=== PATIENT | female | born 1995 | race African-American/Black ===

== ENCOUNTER 2019-09-15 10:11 | Outpatient (CLI) | payer OTHER, SELFPAY ==
[2019-09-19 12:02] LABS: Vitamin D 25 Hydroxy 21 ng/mL (30-100)
== END 2019-09-15 10:12 | disposition home or self-care (01) ==
PROVIDERS: PCP Internal Medicine; Visit Provider Internal Medicine
DX: E55.9 Vitamin D deficiency, unspecified (principal)
CPT/HCPCS: 36415; 82306

== ENCOUNTER 2019-10-12 14:11 | Outpatient (CLI) | payer OTHER, SELFPAY ==
--- NOTE | ~2019-10-12 | CT_ITS ---
EXAMINATION: CTA chest PE protocol DATE: 10/12/2019 16:24 INDICATION: Midsternal chest pain. Elevated d-dimer. TECHNIQUE: Computed tomography (CT) pulmonary angiogram of the chest was performed with 100 mL Omnipa que-350 intravenous contrast. Additional 3D reconstructions utilizing coronal maximum intensity proje ction (MIP) were performed. Automated exposure control and iterative reconstruction technique were em ployed. The dose-length product was 879.53 mGy-cm. COMPARISON: None FINDINGS: Excellent contrast opacification of the pulmonary arteries. There is mild streak artifact from dense contrast in the superior vena cava and right atrium. Mild scattered respiratory motion artifact in th e upper lung zones which does not significantly limit evaluation. No pulmonary embolism. There are fe w small calcified nodules in the right middle lobe along with calcified right hilar and mediastinal l ymph nodes consistent with old granulomatous disease. Or cluster of small <4 mm nodules in the perihi lar region of the right upper and middle lobes couple of which appear to represent mucus impacted bro nchi. No pneumonia, pulmonary edema, pleural effusion or pneumothorax. Heart size is normal. No peric ardial effusion. Thoracic aorta is normal in caliber with no dissection. Likely enlarged subcarinal l ymph node which is difficult to distinguish from the adjacent calcified lymph nodes, esophagus and az ygos vein. Visualized upper abdomen and bones are unremarkable. IMPRESSION: 1. No pulmonary embolism or other acute cardiopulmonary disease. 2. A few small perihilar nodules in the right middle and upper lobes measuring up to 4 mm, couple whi ch appear to represent small mucus impacted bronchi with differential including granulomatous disease . Compared to stage no further follow-up would be indicated. 3. Likely reactive subcarinal lymphadenopathy. Reviewed, dictated and finalized at location A. ATOR MECHANIC APPRENTICE IMPRESSION: 1. No pulmonary embolism or other acute cardiopulmonary disease. 2. A few small perihilar nodules in the right middle and upper lobes measuring up to 4 mm, couple which appear to represent small mucus impacted bronchi with differential including granulomatous disease. Compared to stage no further foll ow-up would be indicated. 3. Likely reactive subcarinal lymphadenopathy.
[2019-10-12 14:29] LABS: Basophils Absolute Auto 0.03 K/mm3 (0.00-0.10); Basophils Percent Auto 0.3 % (0.0-1.0); Eosinophils Absolute Auto 0.19 K/mm3 (0.02-0.50); Eosinophils Percent Auto 2.1 % (1.0-6.0); Hematocrit 41.8 % (35.0-49.0); Hemoglobin 13.6 g/dL (12.0-15.0); Immature Granulocyte Absolute 0.03 K/mm3 (0.00-0.00); Immature Granulocyte Percent A 0.3 % (0.0-0.0); Lymphocytes Absolute Auto 2.35 K/mm3 (1.10-4.50); Lymphocytes Percent Auto 26.1 % (18.0-42.0); Mean Corpuscular HGB Conc 32.5 g/dL (32.0-36.0); Mean Corpuscular Hemoglobin 26.9 pg (27.0-31.0); Mean Corpuscular Volume 82.6 fL (78.0-102.0); Mean Platelet Volume 9.5 fl (9.2-11.8); Monocytes Absolute Auto 0.46 K/mm3 (0.10-0.90); Monocytes Percent Auto 5.1 % (2.0-11.0); Neutrophils Percent Auto 66.1 % (50.0-70.0); Platelet Count Result 316 K/mm3 (150-420); Red Blood Count 5.06 M/mm3 (4.20-5.40); Red Cell Distribution Width 14.5 % (11.6-14.4)
[2019-10-12 14:32] LABS: Hemoglobin A1C 6.1 % (<5.7)
[2019-10-12 14:38] LABS: Pregnancy On Board Control POS; Urine Pregnancy Test Negative
[2019-10-12 14:47] LABS: Alanine Aminotransferase 24 U/L (14-59); Albumin Level 3.7 g/dL (3.4-5.0); Alkaline Phosphatase 71 U/L (46-116); Amylase 43 U/L (25-115); Anion Gap 12.3 mmol/L (7-16); Aspartate Amino Transferase 20 U/L (15-37); Bilirubin,Total 0.5 mg/dL (0.00-1.00); Blood Urea Nitrogen 13 mg/dL (7-18); Calcium 8.8 mg/dL (8.5-10.1); Carbon Dioxide 25 mmol/L (21-32); Chloride 105 mmol/L (98-108); Creatine Kinase 300 U/L (26-192); Estimated Glomerular Filt Rate > 60; Glucose 85 mg/dL (70-99); Lipase 58 U/L (73-393); Osmolality Calculated 285 mOsm/kg (285-295); Potassium 4.3 mmol/L (3.5-5.1); Sodium 138 mmol/L (136-145); Thyroid Stimulating Hormone 4.05 uIU/mL (0.36-3.74)
[2019-10-12 14:49] LABS: Troponin I < 0.02 ng/mL (0.00-0.056)
[2019-10-12 14:58] LABS: D Dimer 1.99 mg/L (0.19-0.50)
[2019-10-13 11:16] LABS: Free T4 Free Thyroxine 0.84 ng/dL (0.76-1.46)
== END 2019-10-12 14:12 | disposition home or self-care (01) ==
PROVIDERS: PCP Internal Medicine; Visit Provider Nurse Practitioner Family
DX: R79.1 Abnormal coagulation profile (principal); R94.31 Abnormal electrocardiogram [ECG] [EKG]; R10.9 Unspecified abdominal pain; R42 Dizziness and giddiness
CPT/HCPCS: 36415; 71275; 80053; 81025; 82150; 82550; 82553; 83036; 83690; 84439; 84443; 84484; 85025; 85380; Q9965

== ENCOUNTER 2019-10-13 07:43 | Outpatient (CLI) | payer OTHER, SELFPAY ==
--- NOTE | ~2019-10-13 | US_ITS ---
US right upper quadrant INDICATION: Right upper quadrant pain PROCEDURE: Realtime right upper abdominal ultrasound. COMPARISON: No prior studies for comparison. FINDINGS: The pancreas is normal without focal mass or pancreatic ductal dilation. Liver echotexture is normal without focal mass or intrahepatic biliary dilatation. There is normal directional flow i n the portal vein. There is gallbladder sludge. No definite stones, gallbladder wall thickening or pericholecystic fluid . Common bile duct measures 4 mm. No sonographic Patel's sign. IMPRESSION: 1: Gallbladder sludge. Reviewed, dictated and finalized at location B. ANICAL SERVICE TECHNICIAN IMPRESSION: 1: Gallbladder sludge.
== END 2019-10-13 07:44 | disposition home or self-care (01) ==
LOC: CHSIMG 07:45
PROVIDERS: PCP Internal Medicine; Visit Provider Nurse Practitioner Family
DX: R10.11 Right upper quadrant pain (principal)
CPT/HCPCS: 76705

== ENCOUNTER 2019-12-22 06:42 | Outpatient (CLI) | payer OTHER, SELFPAY ==
[2019-12-22 17:06] LABS: SARS-CoV-2 RNA PCR Negative
== END 2019-12-22 06:43 | disposition home or self-care (01) ==
LOC: ANHCOVIDDT 06:43
PROVIDERS: PCP Internal Medicine; Visit Provider Surgery
DX: Z01.818 Encounter for other preprocedural examination (principal); Z11.59 Encounter for screening for other viral diseases
CPT/HCPCS: 87635; U0003

== ENCOUNTER 2019-12-25 02:12 | Day surgery (SDC) | payer OTHER, SELFPAY ==
[2019-12-20 15:18] VITALS: BMI 35.6
--- NOTE | 2019-12-25 10:32 | WPDANESEPPF ---
Anes - Initial Pre Proc Eval Procedure: Operation Date: 12/25/19 12:00 Proposed Procedures p Esophagogastroduodenoscopy - Ki Antoine DO Date/Time: 12/25/19 10:32 Surgeon: Ki Antoine DO Pre Op Diagnosis: Epigastric Pain and Dysphagia Patient Data Age: 24 Gender: F Height: 5 ft 6 in Weight: 100 kg Allergies Allergy/AdvReac Type Severity Reaction Status Date / Time No Known Allergies Allergy Verified 12/20/19 15:12 Home Medications Medication Instructions Recorded Confirmed Type escitalopram oxalate [Lexapro] 5 mg PO DAILY 06/20/19 12/20/19 History omeprazole 40 mg PO DAILY 06/20/19 12/20/19 History albuterol sulfate 90 mcg/actuation 2 inhalation INHALATION Q6H 10/25/19 12/20/19 History breath activated powder inhaler,sensor diclofenac potassium 50 mg tablet 50 mg PO DAILY tablet 10/25/19 12/20/19 History montelukast 10 mg tablet 10 mg PO DAILY 10/26/19 12/20/19 History Patient hx anesthesia problems: none Family hx anesthesia problems: none [facility] Past Medical History Medical History Asthma Depression Peptic ulcer disease Social History Social History Smoking status: Never smoker Alcohol intake: never Substance use: never Gender identity (if verbalized by the patient): Female Anes - Eval Final PreProcedure Day of Procedure 12/25/19 10:32 Patient weight: obese Heart: regular rate and rhythm Lungs: clear to auscultation Airway: Mallampati scale class II Neurological: alert and oriented Last oral intake: >/= 8 hours ASA classification: III Emergent: no Anesthetic plan: proceed Anesthesia type and monitoring: general GIVS and standard monitoring Informed Consent: The patient's anesthetic plan and its attendant risks and benefits were discussed with the patient/family/POA. Questions were solicited and answers provided to the satisfaction of the patient/family/POA.
[2019-12-25 10:33] VITALS: BP 113/82; PULSE 51; RESP 16; TEMP 36.6; O2SAT 100
[2019-12-25] MEDS: LACTATED RINGERS 1,000 ML 150 ML IV CONT (10:51)
--- NOTE | 2019-12-25 11:49 | WPDHPUPDATE1 ---
History and Physical Update Update Date/Time: 12/25/19 11:49 History and Physical has been reviewed, including an updated exam of the patient. There are NO changes in the patient's condition. Risks, benefits, and alternatives have been discussed and questions answered. Patient agrees to proceed with procedure.
[2019-12-25 12:05] VITALS: BP 97/56; PULSE 67; RESP 15; O2SAT 97
[2019-12-25 12:15] VITALS: BP 97/52; PULSE 55; RESP 20; O2SAT 100
[2019-12-25 12:25] VITALS: BP 96/62; PULSE 54; RESP 20; O2SAT 97
== END 2019-12-25 12:43 | disposition home or self-care (01) ==
PROVIDERS: PCP Internal Medicine; Visit Provider Surgery
PROC: 0DJ08ZZ Inspection of Upper Intestinal Tract, Via Natural or Artificial Opening Endoscopic (ICD-10-PCS; CPT 43235; principal; 2019-12-25 12:00)
DX: K21.0 Gastro-esophageal reflux disease with esophagitis (principal); K44.9 Diaphragmatic hernia without obstruction or gangrene; J45.909 Unspecified asthma, uncomplicated; F32.9 Major depressive disorder, single episode, unspecified
CPT/HCPCS: 43239; 87081; 88305; J2001; J7120

== ENCOUNTER 2020-02-18 15:02 | Emergency (ER) | payer BC, MEDICAID, SELFPAY ==
--- NOTE | ~2020-02-18 | CT_ITS ---
EXAMINATION: CT abdomen pelvis w con DATE: 02/18/2020 17:34 INDICATION: Epigastric pain. TECHNIQUE: Computed tomography (CT) of the abdomen and pelvis was performed with 100 cc Omnipaque 350 intravenous contrast. The dose-length product was 1128.27 mGy-cm. Automated exposure control and ite rative reconstruction technique were employed. COMPARISON: CT dated 01/16/2014 FINDINGS: Lung bases unremarkable. Heart size normal. No pleural or pericardial effusion. No significant vascular abnormality. No lymphadenopathy. The liver, spleen, pancreas, adrenal glands and kidneys are unremarkable. No bowel obstruction. Normal appendix. Trace free fluid in the pelvis, likely physiologic. No free air. IMPRESSION: 1. No acute abdominal abnormality. Reviewed, dictated and finalized at location A.
[2020-02-18 15:25] VITALS: BP 129/73; PULSE 75; RESP 20; TEMP 36.9; O2SAT 96
--- NOTE | 2020-02-18 15:40 | ED.ABDPAIN ---
HPI - Abdominal Pain General Chief Complaint: Abdominal Pain Stated Complaint: vomiting, abd pain Time Seen by Provider: 02/18/20 15:40 Source: patient Mode of arrival: ambulatory Limitations: no limitations History of Present Illness HPI narrative: 24-year-old woman comes in today complaining of epigastric pain that radiates up into her chest that started approximately 2 hours ago. Patient states that she ate lunch as per usual and has been feeling well to the onset of her symptoms. She feels nauseated and vomited her lunch and then was having dry heaves afterwards productive of a small amount of blood. She denies diarrhea, sick contacts, fever, cough or cold symptoms, or prior similar symptoms except to say that she has a hiatal hernia which gave her similar but much milder symptoms before. She has had an EGD December [facility] which showed esophagitis and the lower 3rd without bleeding and small hiatal hernia without obstruction or gangrene. MD elicited complaint: abdominal pain Pertinent past history: other ( reflux esophagitis and hiatal hernia) Onset (ago): hour(s) (2) Pain Consistency: constant Location: epigastric Severity: severe Quality: burning Radiation: chest Migration to: no migration Exacerbating factors: nothing Relieving factors: nothing Context: confirms history of similar episodes Associated symptoms: nausea and vomiting Related Data Patient : No Home Medications Medication Instructions Recorded Confirmed omeprazole 40 mg PO DAILY 06/20/19 02/18/20 albuterol sulfate 90 mcg/actuation 2 inhalation INHALATION Q6H 10/25/19 02/18/20 breath activated powder inhaler,sensor montelukast 10 mg tablet 10 mg PO DAILY 10/26/19 02/18/20 Allergies Allergy/AdvReac Type Severity Reaction Status Date / Time No Known Allergies Allergy Verified 12/20/19 15:12 Review of Systems Constitutional: Constitutional: Denies chills, Denies fever(s) and Denies weakness ENT: Denies dysphagia, Denies nasal congestion and Denies sore throat Cardiovascular: Cardiovascular: Reports chest pain and Denies radiating jaw, neck or arm pain Respiratory: Respiratory: Denies cough, Denies dyspnea and Denies wheezing Gastrointestinal: Gastrointestinal: Reports abdominal pain, Denies diarrhea, Reports nausea and Reports vomiting Genitourinary: Genitourinary: Denies nocturia and Denies dysuria Musculoskeletal: Musculoskeletal: Denies back pain, Denies arthralgias and Denies joint swelling Integumentary/Breasts: Skin/Breast: Denies pruritus, Denies erythema and Denies rash Neurologic: Denies vertigo, Denies dizziness and Denies syncope Hematologic/Lymphatic: Hematologic/Lymphatic: Denies easy bleeding and Denies easy bruising Allergic/Immunologic: Allergic/Immunologic: Denies lip swelling and Denies wheezing [facility] Past Medical History Medical History Asthma Depression GERD (gastroesophageal reflux disease) Hiatal hernia Peptic ulcer disease Surgical History Surgical History H/O esophagogastroduodenoscopy 12/2019 Social History Social History (Updated 02/18/20 @ 16:39 by Austen Franks MD) Smoking status: Never smoker Alcohol intake: current Alcohol use details: occasional Substance use: current Substance use type: marijuana Other substance usage details: occasional Living arrangements: with family Gender identity (if verbalized by the patient): Female Exam Const: General: healthy appearing and alert Nutritional Appearance: obese Orientation/consciousness: patient oriented x3 Limitations: no limitations Other: moderate acute distress, tearful HENMT: Head: normal to inspection Ears: external ears normal, TM's normal bilaterally and EAC's normal Face and sinus: normal facial exam Mouth: Yes moist mucous membranes Throat: posterior oropharynx normal Eyes:
[2020-02-18 15:44] LABS: Appearance Urine Clear (Clear); Bilirubin Urine Negative (Negative); Color Urine Yellow (Yellow); Glucose Urine UA Negative (Negative); Ketones Urine Negative (Negative); Leukocyte Esterase Ur Negative LEU/UL (Negative); Nitrate Urine Negative (Negative); Protein Urine Negative (Negative)
[2020-02-18 15:47] LABS: Add Urine Microscopic? YES; Bacteria Urine 1+ /hpf; Blood Urine Trace-Intact (Negative); Squamous Epithelial Cell Urine Moderate /hpf (Few); WBC Urine None seen /hpf (0-3)
[2020-02-18 15:48] LABS: Pregnancy On Board Control Positive; Urine Pregnancy Test Negative
[2020-02-18] MEDS: SODIUM CHLORIDE 0.9% IV 1,000 ML 999 ML IV CONT (16:04)
[2020-02-18] MEDS: LIDOCAINE HCL 2% VISC SOLN 15 ML UDC 20 ML PO (16:05)
[2020-02-18] MEDS: MAG HYDROX/AL HYDROX/SIMETH 30 ML UDC PO (16:06)
[2020-02-18] MEDS: ONDANSETRON INJ 4 MG/2 ML VIAL IV PUSH (16:06)
[2020-02-18] MEDS: PANTOPRAZOLE SODIUM IV 40 MG VIAL IV PUSH (16:07)
[2020-02-18] MEDS: MORPHINE SULFATE 4 MG/ML INJ 2 MG IV PUSH (16:07)
[2020-02-18 16:13] LABS: Basophils Absolute Auto 0.03 K/mm3 (0.00-0.10); Basophils Percent Auto 0.4 % (0.0-1.0); Eosinophils Absolute Auto 0.07 K/mm3 (0.02-0.50); Eosinophils Percent Auto 0.8 % (1.0-6.0); Hematocrit 39.1 % (35.0-49.0); Hemoglobin 13.1 g/dL (12.0-15.0); Immature Granulocyte Absolute 0.05 K/mm3 (0.00-0.00); Immature Granulocyte Percent A 0.6 % (0.0-0.0); Lymphocytes Absolute Auto 1.78 K/mm3 (1.10-4.50); Mean Corpuscular HGB Conc 33.5 g/dL (32.0-36.0); Mean Corpuscular Hemoglobin 27.4 pg (27.0-31.0); Mean Corpuscular Volume 81.8 fL (78.0-102.0); Mean Platelet Volume 9.3 fl (9.2-11.8); Monocytes Absolute Auto 0.36 K/mm3 (0.10-0.90); Monocytes Percent Auto 4.2 % (2.0-11.0); Neutrophils Absolute Auto 6.2 K/mm3 (1.7-7.2); Platelet Count Result 274 K/mm3 (150-420); Red Blood Count 4.78 M/mm3 (4.20-5.40); White Blood Count 8.5 K/mm3 (4.8-10.8)
[2020-02-18 16:24] LABS: Partial Thromboplastin Time 29.2 SEC (22.3-31.6); Prothrombin Time 10.5 Seconds (9.64-11.0)
[2020-02-18 16:27] LABS: Alanine Aminotransferase 20 U/L (14-59); Albumin Level 3.5 g/dL (3.4-5.0); Alkaline Phosphatase 64 U/L (46-116); Anion Gap 11.5 mmol/L (7-16); Aspartate Amino Transferase 17 U/L (15-37); Bilirubin,Total 0.5 mg/dL (0.00-1.00); Blood Urea Nitrogen 12 mg/dL (7-18); Calcium 8.7 mg/dL (8.5-10.1); Carbon Dioxide 25 mmol/L (21-32); Chloride 102 mmol/L (98-108); Estimated Glomerular Filt Rate > 60; Glucose 101 mg/dL (70-99); Lipase 39 U/L (73-393); Osmolality Calculated 279 mOsm/kg (285-295); Potassium 3.5 mmol/L (3.5-5.1); Sodium 135 mmol/L (136-145); Total Protein 7.3 g/dL (6.4-8.2)
[2020-02-18 16:29] LABS: Lactic Acid Reflex 0.6 mmol/L (0.4-2.0)
[2020-02-18 17:00] VITALS: BP 111/79; PULSE 57; O2SAT 98
[2020-02-18 18:29] VITALS: BP 103/58; PULSE 53
== END 2020-02-18 18:34 | disposition home or self-care (01) ==
PROVIDERS: Emergency Provider Emergency Medicine; PCP Internal Medicine
DX: R10.13 Epigastric pain (principal); K44.9 Diaphragmatic hernia without obstruction or gangrene; K21.9 Gastro-esophageal reflux disease without esophagitis
CPT/HCPCS: 36415; 74177; 80053; 81001; 81025; 83605; 83690; 85025; 85610; 85730; 96361; 96374; 96375; 99284; A9270; C9113; J2270; J2405; J7030; Q9965

== ENCOUNTER 2020-02-20 08:31 | Outpatient (CLI) | payer BC, MEDICAID, SELFPAY ==
--- NOTE | ~2020-02-20 | US_ITS ---
US right upper quadrant INDICATION: Epigastric pain PROCEDURE: Realtime right upper abdominal ultrasound. COMPARISON: 10/13/2019 FINDINGS: The pancreas is normal without focal mass or pancreatic ductal dilation. Liver echotexture is normal without focal mass or intrahepatic biliary dilatation. There is normal directional flow i n the portal vein. There is gallbladder sludge. No stones, gallbladder wall thickening or pericholecystic fluid. Common bile duct measures 3 mm. No sonographic Patel's sign. IMPRESSION: 1: Gallbladder sludge. Reviewed, dictated and finalized at location B. IMPRESSION: 1: Gallbladder sludge.
== END 2020-02-20 08:32 | disposition home or self-care (01) ==
LOC: CHSIMG 08:32
PROVIDERS: PCP Internal Medicine; Visit Provider Emergency Medicine
DX: R10.13 Epigastric pain (principal)
CPT/HCPCS: 76705

== ENCOUNTER 2020-03-05 08:44 | Outpatient (CLI) | payer BC, MEDICAID, SELFPAY ==
--- NOTE | ~2020-03-05 | NM_ITS ---
. EXAMINATION: NM hepatobiliary w pharm DATE: 03/05/2020 11:27 INDICATION: Right upper quadrant abdominal pain. COMPARISON: Ultrasound 02/20/2020 TECHNIQUE: 6.0 mCi Tc-99m mebrofenin (Choletec) was administered intravenously. Scintigraphic images of the abdomen were obtained for one hour. Then, 2.2 mcg sincalide (Kinevac) IV was administered, an d imaging was continued for 30 minutes. FINDINGS: There is normal clearance of radiotracer from the blood pool. There is homogeneous tracer u ptake by the liver. Activity progresses to the bowel and gallbladder. Gallbladder ejection fraction (GBEF) was 65%. Note that most patients with gallbladder dysfunction have GBEF < 35%, which overlaps with the broad normal range of 10-90%. IMPRESSION: 1. Normal hepatobiliary scintigraphy. Reviewed, dictated and finalized at location A.
== END 2020-03-05 08:45 | disposition home or self-care (01) ==
LOC: CHSIMG 08:46
PROVIDERS: PCP Internal Medicine; Visit Provider Internal Medicine
DX: R10.11 Right upper quadrant pain (principal); R93.5 Abnormal findings on diagnostic imaging of other abdominal regions, including retroperitoneum
CPT/HCPCS: 78227; A9537; J2805

== ENCOUNTER 2020-03-08 03:29 | Emergency (ER) | payer BC, MEDICAID, SELFPAY ==
--- NOTE | ~2020-03-08 | US_ITS ---
EXAMINATION: US OB <=14 wk fetus w TV DATE: 03/08/2020 08:51 INDICATION: Abdominal pain. First trimester of . TECHNIQUE: Real-time transabdominal and transvaginal pelvic ultrasound was performed. COMPARISON: None. FINDINGS: TRANSABDOMINAL ULTRASOUND: The uterus measures 7.1 x 4.6 x 4.8 cm. TRANSVAGINAL ULTRASOUND: There is an intrauterine gestational sac. A yolk sac is identified. The fet al crown rump length measures 0.5 cm, which correlates with an estimated gestational age of 6 weeks a nd 2 day(s) (+/-) 4 day(s). heart motion is identified measuring 115 beats per minute (bpm) by M-mode Doppler. The right ovary measures 3.0 x 1.9 x 2.2 cm. The left ovary measures 3.2 x 1.5 x 2.4 cm. There is no free fluid in the pelvis. IMPRESSION: 1. Single living intrauterine gestation with estimated date of delivery of 10/30/2020. Reviewed, dictated and finalized at location A. IMPRESSION: 1. Single living intrauterine gestation with estimated date of delivery of 10/08.
[2020-03-08 03:40] VITALS: BP 125/69; PULSE 68; RESP 20; TEMP 37.4; O2SAT 100
--- NOTE | 2020-03-08 03:46 | ED.ABDPAIN ---
HPI - Abdominal Pain General Chief Complaint: Abdominal Pain Stated Complaint: adominal pain Time Seen by Provider: 03/08/20 03:46 Source: patient Mode of arrival: ambulatory Limitations: no limitations History of Present Illness HPI narrative: 24-year-old woman comes in today complaining of epigastric pain and vomiting for the last week. patient states that she has had a small amount of blood in her vomitus but is mostly yellow and green. She denies diarrhea, fever, dysuria, hematuria, blood in her stools or black stools. Upper quadrant ultrasound on 02/19 and HIDA scan on 03/05 were both unremarkable And a CT scan on 02/17 was unremarkable as well. MD elicited complaint: abdominal pain Onset (ago): week(s) (1) Pain Consistency: constant Location: epigastric Severity: severe Quality: sharp Radiation: none Migration to: no migration Exacerbating factors: eating Relieving factors: nothing Associated symptoms: nausea and vomiting Treatments prior to arrival: antacids Related Data Home Medications Medication Instructions Recorded Confirmed omeprazole 40 mg PO DAILY 06/20/19 03/08/20 albuterol sulfate 90 mcg/actuation 2 inhalation INHALATION Q6H 10/25/19 03/08/20 breath activated powder inhaler,sensor escitalopram oxalate [Lexapro] 10 mg PO DAILY 03/08/20 03/08/20 Allergies Allergy/AdvReac Type Severity Reaction Status Date / Time No Known Allergies Allergy Verified 12/20/19 15:12 Review of Systems Constitutional: Constitutional: Denies chills, Denies fever(s) and Denies weakness Eyes: Eyes: Denies change in vision and Denies photophobia ENT: Denies dysphagia, Denies nasal congestion and Denies sore throat Cardiovascular: Cardiovascular: Denies chest pain and Denies radiating jaw, neck or arm pain Respiratory: Respiratory: Denies cough, Denies dyspnea and Denies wheezing Gastrointestinal: Gastrointestinal: Reports as per HPI, Reports abdominal pain, Denies constipation, Denies diarrhea, Reports nausea and Reports vomiting Genitourinary: Genitourinary: Denies hematuria, Denies nocturia and Denies dysuria Musculoskeletal: Musculoskeletal: Denies back pain, Denies arthralgias and Denies joint swelling Integumentary/Breasts: Skin/Breast: Denies pruritus, Denies erythema and Denies rash Neurologic: Denies vertigo, Denies dizziness and Denies syncope Hematologic/Lymphatic: Hematologic/Lymphatic: Denies easy bleeding and Denies easy bruising Allergic/Immunologic: Allergic/Immunologic: Denies lip swelling and Denies wheezing [facility] Social History Social History Smoking status: Never smoker Alcohol intake: current Substance use: current Substance use type: marijuana Other substance usage details: occasional Gender identity (if verbalized by the patient): Female Exam Const: General: alert Nutritional Appearance: obese Orientation/consciousness: patient oriented x3 Limitations: no limitations Other: Moderate acute distress, tearful. HENMT: Mouth: Yes moist mucous membranes Throat: posterior oropharynx normal and uvula midline Eyes: Conjunctivae: conjunctivae normal Pupils: Equal, round and reactive pupils present EOM: EOMs intact bilaterally Resp: Effort & Inspection: normal respiratory effort and not labored Auscultation: clear to auscultation bilaterally, no rales, no rhonchi and no wheezes Cardio: Rate: regular rate Rhythm: regular rhythm Heart sounds: no murmurs GI: Inspection: non-distended GI Palp: Yes Soft to palpation, Yes Tenderness to palpation present (GI) (diffusely, but mostly in the epigastrum), No Guarding due to palpation present (GI), No Rigid due to palpation, No Palpable mass present and No Rebound tenderness present : General: Yes no CVA tenderness Skin: General skin exam: normal color, no jaundice and no pallor Rashes: no rashes Neuro: General: patient oriented x3, moves all extremities, no focal
[2020-03-08 04:24] LABS: Basophils Absolute Auto 0.03 K/mm3 (0.00-0.10); Basophils Percent Auto 0.4 % (0.0-1.0); Eosinophils Absolute Auto 0.06 K/mm3 (0.02-0.50); Eosinophils Percent Auto 0.8 % (1.0-6.0); Hematocrit 39.6 % (35.0-49.0); Hemoglobin 13.4 g/dL (12.0-15.0); Immature Granulocyte Absolute 0.03 K/mm3 (0.00-0.00); Immature Granulocyte Percent A 0.4 % (0.0-0.0); Lymphocytes Absolute Auto 1.94 K/mm3 (1.10-4.50); Lymphocytes Percent Auto 27.1 % (18.0-42.0); Mean Corpuscular HGB Conc 33.8 g/dL (32.0-36.0); Mean Corpuscular Hemoglobin 28.1 pg (27.0-31.0); Mean Platelet Volume 9.2 fl (9.2-11.8); Monocytes Absolute Auto 0.39 K/mm3 (0.10-0.90); Monocytes Percent Auto 5.4 % (2.0-11.0); Neutrophils Absolute Auto 4.7 K/mm3 (1.7-7.2); Neutrophils Percent Auto 65.9 % (50.0-70.0); Platelet Count Result 256 K/mm3 (150-420); Red Blood Count 4.77 M/mm3 (4.20-5.40); Red Cell Distribution Width 13.6 % (11.6-14.4); White Blood Count 7.2 K/mm3 (4.8-10.8)
[2020-03-08 04:47] LABS: Appearance Urine Clear (Clear); Bilirubin Urine Negative (Negative); Color Urine Yellow (Yellow); Glucose Urine UA Negative (Negative); Ketones Urine 2+ (Negative); Leukocyte Esterase Ur Negative LEU/UL (Negative); Nitrate Urine Negative (Negative); Protein Urine Negative (Negative); Urobilinogen Urine >=8.0 mg/dL (0.2-1.0)
[2020-03-08 04:50] LABS: Alanine Aminotransferase 23 U/L (14-59); Albumin Level 3.8 g/dL (3.4-5.0); Alkaline Phosphatase 54 U/L (46-116); Anion Gap 12.1 mmol/L (7-16); Aspartate Amino Transferase 25 U/L (15-37); Bilirubin,Total 1.3 mg/dL (0.00-1.00); Blood Urea Nitrogen 7 mg/dL (7-18); Calcium 8.7 mg/dL (8.5-10.1); Carbon Dioxide 25 mmol/L (21-32); Chloride 96 mmol/L (98-108); Estimated CRCL calculation 123 ml/min; Estimated Glomerular Filt Rate > 60; Glucose 81 mg/dL (70-99); Osmolality Calculated 267 mOsm/kg (285-295); Potassium 3.1 mmol/L (3.5-5.1); Sodium 130 mmol/L (136-145); Total Protein 7.7 g/dL (6.4-8.2)
[2020-03-08 04:52] LABS: Pregnancy On Board Control Positive; Urine Pregnancy Test Positive
[2020-03-08] MEDS: SODIUM CHLORIDE 0.9% IV 1,000 ML 999 ML IV CONT (04:52)
[2020-03-08] MEDS: ONDANSETRON INJ 4 MG/2 ML VIAL IV PUSH (04:53)
[2020-03-08] MEDS: HYDROmorphone HCL 2 MG/ML VIAL 0.5 MG IV PUSH (04:53)
[2020-03-08 04:55] LABS: Lactic Acid Reflex 0.9 mmol/L (0.4-2.0)
[2020-03-08 04:59] LABS: Add Urine Microscopic? YES; Blood Urine Trace-Intact (Negative); Squamous Epithelial Cell Urine Few /hpf (Few); WBC Urine 0-3 /hpf (0-3)
[2020-03-08 05:00] LABS: Bacteria Urine 1+ /hpf; Mucus Urine Few /lpf
[2020-03-08 05:01] LABS: Amphetamine Screen Urine Negative (Negative); Barbiturate Screen Urine Negative (Negative); Benzodiazepines Screen Urine Negative (Negative); Cannabinoid Screen Urine Positive (Negative); Cocaine Screen Urine Negative (Negative); Methadone Screen Urine Negative (Negative); Opiate Screen Urine Positive (Negative); Phencyclidine Screen Urine Negative (Negative)
[2020-03-08 05:20] VITALS: BP 126/78; PULSE 85; RESP 18; O2SAT 100
[2020-03-08] MEDS: KCL 20 MEQ/D5/0.9% SOD CHL 1,000 ML 999 ML IV CONT (08:28)
--- NOTE | 2020-03-08 08:34 | PC.NURSE ---
Discussed HIV testing c pt. since + preg test, pt. does consent to testing while here and instructions given c d/c instructions for home explained. Signed consent for testing.
[2020-03-08 09:08] LABS: HIV 1 P24 AG Negative (Negative); HIV 1/2 AB Negative (Negative)
[2020-03-08 09:23] VITALS: BP 126/76; PULSE 75; RESP 20; TEMP 36.4; O2SAT 99
--- NOTE | 2020-03-08 09:23 | ED.ABDPAIN ---
HPI - Abdominal Pain General Chief Complaint: Abdominal Pain Stated Complaint: adominal pain Time Seen by Provider: 03/08/20 03:46 Source: patient Mode of arrival: ambulatory Limitations: no limitations History of Present Illness MD elicited complaint: abdominal pain Onset (ago): week(s) (1) Pain Consistency: constant Location: epigastric Severity: severe Quality: sharp Radiation: none Migration to: no migration Exacerbating factors: eating Relieving factors: nothing Associated symptoms: nausea and vomiting Treatments prior to arrival: antacids Related Data Home Medications Medication Instructions Recorded Confirmed omeprazole 40 mg PO DAILY 06/20/19 03/08/20 albuterol sulfate 90 mcg/actuation 2 inhalation INHALATION Q6H 10/25/19 03/08/20 breath activated powder inhaler,sensor escitalopram oxalate [Lexapro] 10 mg PO DAILY 03/08/20 03/08/20 Allergies Allergy/AdvReac Type Severity Reaction Status Date / Time No Known Allergies Allergy Verified 12/20/19 15:12 [facility] Social History Social History Smoking status: Never smoker Alcohol intake: current Substance use: current Substance use type: marijuana Other substance usage details: occasional Gender identity (if verbalized by the patient): Female Course Course Emergency Course: Dr. Franks signed out to me at 07:00 Ultrasound showed 6 weeks intrauterine . Pt. developed morning sickness earlier in the week followed with suprapubic pain early this AM likely secondary to abdominal muscle spasms. This does not appear to be related to her recent dx. of esophagitis. Pt had no further vomiting after Zofran and IVF. Received NS with KCL. No further suprapubic pain. Minor tenderness without guarding on physical exam. Pt. d.c. Rx. for KCL and doxylamine-pyridoxine and given f/u instructions to see Dr. Fragoso to monitor electrolytes and OB for care. Pain should resolve if vomiting is controlled. Pt. encouraged to read info on morning sickness. Vital Signs Vital signs: Vital Signs Temperature 37.4 C 03/08/20 03:40 Pulse Rate 68 03/08/20 03:40 Respiratory Rate 20 03/08/20 03:40 Blood Pressure 125/69 03/08/20 03:40 Pulse Oximetry 100 03/08/20 03:40 Temperature 36.4 C L 03/08/20 09:23 Pulse Rate 75 03/08/20 09:23 Respiratory Rate 20 03/08/20 09:23 Blood Pressure 126/76 03/08/20 09:23 Pulse Oximetry 99 03/08/20 09:23 MDM - Abdominal Pain Medical Records Attestation: I reviewed the patient's medical records. Medical records narrative: epigastric pain, early satiety, food getting stuck in esophagus, onset In Aug/Sep. EGD revealed lower 1/3 esophagitis. Tx. with PPI. Lab Data Attestation: I reviewed the patient's lab results. Result diagrams: 03/08/20 04:20 03/08/20 04:20 Labs: Lab Results 03/08/20 03/08/20 03/08/20 Range/Units 04:20 04:20 04:20 WBC 7.2 (4.8-10.8) K/mm3 RBC 4.77 (4.20-5.40) M/mm3 Hgb 13.4 (12.0-15.0) g/dL Hct 39.6 (35.0-49.0) % MCV 83.0 (78.0-102.0) fL MCH 28.1 (27.0-31.0) pg MCHC 33.8 (32.0-36.0) g/dL RDW 13.6 (11.6-14.4) % Plt Count 256 (150-420) K/mm3 MPV 9.2 (9.2-11.8) fl Immature Gran % (Auto) 0.4 H (0.0-0.0) % Neut % (Auto) 65.9 (50.0-70.0) % Lymph % (Auto) 27.1 (18.0-42.0) % [place] % (Auto) 5.4 (2.0-11.0) % Eos % (Auto) 0.8 L (1.0-6.0) % Baso % (Auto) 0.4 (0.0-1.0) % Lymph # (Auto) 1.94 (1.10-4.50) K/mm3 [place] # (Auto) 0.39 (0.10-0.90) K/mm3 Eos # (Auto) 0.06 (0.02-0.50) K/mm3 Baso # (Auto) 0.03 (0.00-0.10) K/mm3 Abs Immat Gran (auto) 0.03 H (0.00-0.00) K/mm3 Absolute Neuts (auto) 4.7 (1.7-7.2) K/mm3 Absolute Nucleated RBC 0.00 (0.00-0.00) K/mm3 Nucleated RBC % 0.0 (0-0.0) % Sodium 130 L (136-145) mmol/L Potassium 3.1 L (3.5-5.1) mmol/L Chloride 96 L (98-10
== END 2020-03-08 09:32 | disposition home or self-care (01) ==
PROVIDERS: Emergency Medicine; Emergency Provider Family Medicine; PCP Internal Medicine
DX: R10.9 Unspecified abdominal pain (principal); Z33.1 Pregnant state, incidental
CPT/HCPCS: 36415; 76801; 76817; 80053; 80307; 81001; 81025; 83605; 83735; 84702; 85025; 86703; 96361; 96365; 96375; 99284; J1170; J2405; J3480; J7030

== ENCOUNTER 2020-07-24 09:58 | Outpatient (CLI) | payer MEDICAID, SELFPAY ==
[2020-07-30 13:03] LABS: Vitamin D 25 Hydroxy 22 ng/mL (30-100)
== END 2020-07-24 09:59 | disposition home or self-care (01) ==
PROVIDERS: PCP Internal Medicine; Visit Provider Internal Medicine
DX: E55.9 Vitamin D deficiency, unspecified (principal)
CPT/HCPCS: 36415; 82306

== ENCOUNTER 2020-10-11 10:37 | Outpatient (RCR) | payer OTHER, SELFPAY ==
[2020-10-10 08:31] VITALS: BP 111/63; PULSE 80
--- NOTE | ~2020-10-11 | US_ITS ---
EXAMINATION: US OB BPP wo non-stress DATE: 10/11/2020 12:45 INDICATION: Decreased movements during third trimester of TECHNIQUE: Real-time pelvic ultrasound was performed. The interpreting radiologist was not present fo r the study. COMPARISON: 03/08/2020 FINDINGS: There is a single living fetus in vertex presentation. The placenta is posterior. heart rate i s 142 beats per minute (bpm). Amniotic fluid volume is subjectively normal. Biophysical profile performed by the technologist: breathing (30 sec sustained breathing in 30 minutes): 2 out of 2 movement (3 gross body movements in 30 minutes): 2 out of 2 tone (one episode of [id number]-[id number] limb movement): 2 out of 2 Amniotic fluid pocket (2 cm): 2 out of 2 Total score: 8 out of 8 IMPRESSION: 1. Single living fetus in vertex presentation with heart rate of 142 bpm. 2. Biophysical profile 8 out of 8. Reviewed, dictated and finalized at location B. K CLEANER
[2020-10-11 13:34] VITALS: BP 116/77; PULSE 100
--- NOTE | 2020-10-14 08:25 | PM.OBTRLD ---
OB - Triage/Final Diagnosis Visit Information Date of evaluation: 10/11/20 Reason for evaluation: decreased movement and other (abdominal pain after fall) Comments/Additional reasons for admission: Pt presented to triage after fall. She reported some abdominal pain and decreased movement. I have assessed the risk for this patient, Terra Pineda, and determined that she would benefit from observation care.
== END 2020-10-28 08:47 | disposition home or self-care (01) ==
LOC: ANHOBOP 10:37
PROVIDERS: PCP Internal Medicine; Visit Provider Obstetrics & Gynecology
DX: O99.891 Other specified diseases and conditions complicating pregnancy (principal); W19.XXXA Unspecified fall, initial encounter; O36.8130 Decreased fetal movements, third trimester, not applicable or unspecified; Z3A.37 37 weeks gestation of pregnancy
CPT/HCPCS: 59025; 76819

== ENCOUNTER 2020-10-25 15:26 | Inpatient (IN) | payer OTHER, SELFPAY ==
[2020-10-25] VITALS (99 sets, daily range): BP systolic 94–129; BP diastolic 40–78; PULSE 77–118; RESP 16–18; TEMP 36.6–37.1; O2SAT 95–100; BMI 39.4
--- NOTE | 2020-10-25 15:26 | LDADM ---
This patient, Terra Pineda, was admitted to Labor/Delivery/Recovery 105 on 10/25/20 at 15:26. Plans for labor, pain management and were discussed with patient. Patient/family oriented to hospital policies and general routines including ID bracelet, bed and alarms, visiting hours, pain management, procedures, bathroom and other care routines, personal items, smoking policy, room service/diet and guest tray routines, infant security routines, and visiting hours. Patient/Family are encouraged to report perceived risks to care and to ask questions if they do not understand what they are told or what they should do. See [facility] for further documentation.
[2020-10-25 16:28] LABS: Basophils Percent Auto 0.3 % (0.2-1.2); Eosinophils Absolute Auto 0.1 K/mm3 (0-0.3); Eosinophils Percent Auto 0.7 % (0-4.4); Hematocrit 36.5 % (37.0-47.0); Hemoglobin 11.5 g/dL (12.0-15.0); Immature Granulocyte Absolute 0.17 K/mm3 (0.00-0.031); Immature Granulocyte Percent A 1.3 % (0-0.5); Lymphocytes Absolute Auto 1.76 K/mm3 (0.9-3.2); Lymphocytes Percent Auto 13.3 % (18.3-44.2); Mean Corpuscular HGB Conc 31.5 g/dl (32-36); Mean Corpuscular Hemoglobin 24.9 pg (26-34); Mean Platelet Volume 10.2 fl (7.4-10.4); Monocytes Absolute Auto 0.8 K/mm3 (0.1-0.6); Monocytes Percent Auto 5.7 % (2.6-8.5); Neutrophils Absolute Auto 10.4 K/mm3 (1.3-6.7); Neutrophils Percent Auto 78.7 % (45.5-73.1); Platelet Count Result 264 k/mm3 (150-375); Red Blood Count 4.62 M/mm3 (4.2-5.4); Red Cell Distribution Width 16.4 % (11.5-14.5); White Blood Count 13.2 K/mm3 (4.5-10.0)
[2020-10-25 17:08] LABS: Amphetamine Screen Urine Negative (Negative); Barbiturate Screen Urine Negative (Negative); Benzodiazepines Screen Urine Negative (Negative); Cannabinoid Screen Urine Negative (Negative); Cocaine Screen Urine Negative (Negative); Methadone Screen Urine Negative (Negative); Opiate Screen Urine Negative (Negative); Phencyclidine Screen Urine Negative (Negative)
[2020-10-25] MEDS: LACTATED RINGERS 1,000 ML 125 ML IV CONT ×3 (17:32→23:35)
--- NOTE | 2020-10-25 17:52 | WPDANESEPP ---
Anes - Eval Pre Procedure Procedure: Labor epidural Date/Time: 10/25/20 17:52 Surgeon: aaron Preop Diagnosis: pain during labor Pre Op Diagnosis: Labor Patient Data Age: 25 Gender: F Height: 1.68 m Weight: 111 kg Last Vital Signs Temp 36.9 C 10/25/20 16:00 Pulse 85 10/25/20 17:46 BP 127/76 10/25/20 17:46 Allergies Allergy/AdvReac Type Severity Reaction Status Date / Time No Known Allergies Allergy Verified 10/05/20 14:38 Home Medications Medication Instructions Recorded Confirmed Type albuterol sulfate 90 mcg/actuation 2 inhalation INHALATION Q6H PRN 10/25/19 10/25/20 History breath activated powder inhaler,sensor ondansetron HCl [Zofran] 4 mg PO Q6H PRN 10/05/20 10/25/20 History prenat.vits,violet,zdz-lkhf-zsund 1 tablet PO DAILY 10/05/20 10/25/20 History [ #2] cholecalciferol (vitamin D3) 8,000 unit PO DAILY 10/10/20 10/25/20 History [Vitamin D3] Laboratory Tests 10/25/20 10/25/20 10/25/20 16:23 16:23 16:23 WBC 13.2 K/mm3 H K/mm3 (4.5-10.0) RBC 4.62 M/mm3 M/mm3 (4.2-5.4) Hgb 11.5 g/dL L g/dL (12.0-15.0) Hct 36.5 % L % (37.0-47.0) MCV 79.0 fl L fl (80-100) MCH 24.9 pg L pg (26-34) MCHC 31.5 g/dl L g/dl (32-36) RDW 16.4 % H % (11.5-14.5) Plt Count 264 k/mm3 k/mm3 (150-375) MPV 10.2 fl fl (7.4-10.4) Immature Gran % (Auto) 1.3 % H % (0-0.5) Neut % (Auto) 78.7 % H % (45.5-73.1) Lymph % (Auto) 13.3 % L % (18.3-44.2) [place] % (Auto) 5.7 % % (2.6-8.5) Eos % (Auto) 0.7 % % (0-4.4) Baso % (Auto) 0.3 % % (0.2-1.2) Lymph # (Auto) 1.76 K/mm3 K/mm3 (0.9-3.2) [place] # (Auto) 0.8 K/mm3 H K/mm3 (0.1-0.6) Eos # (Auto) 0.1 K/mm3 K/mm3 (0-0.3) Baso # (Auto) 0.0 K/mm3 K/mm3 (0.0-0.1) Abs Immat Gran (auto) 0.17 K/mm3 H K/mm3 (0.00-0.031) Absolute Neuts (auto) 10.4 K/mm3 H K/mm3 (1.3-6.7) Absolute Nucleated RBC 0.0 K/mm3 K/mm3 (0.0-0.012) Nucleated RBC % 0.0 % % (0.0-0.2) Urine Opiates Screen Urine Methadone Screen Ur Barbiturates Screen Ur Phencyclidine Scrn Ur Amphetamine Screen U Benzodiazepines Scrn Urine Cocaine Screen U Cannabinoids Screen RPR Pending Blood Type B Positive Antibody Screen Negative 10/25/20 16:23 WBC RBC Hgb Hct MCV MCH MCHC RDW Plt Count MPV Immature Gran % (Auto) Neut % (Auto) Lymph % (Auto) [place] % (Auto) Eos % (Auto) Baso % (Auto) Lymph # (Auto) [place] # (Auto) Eos # (Auto) Baso # (Auto) Abs Immat Gran (auto) Absolute Neuts (auto) Absolute Nucleated RBC Nucleated RBC % Urine Opiates Screen Negative (Negative) Urine Methadone Screen Negative (Negative) Ur Barbiturates Screen Negative (Negative) Ur Phencyclidine Scrn Negative (Negative) Ur Amphetamine Screen Negative (Negative) U Benzodiazepines Scrn Negative (Negative) Urine Cocaine Screen Negative (Negative) U Cannabinoids Screen Negative (Negative) RPR Blood Type Antibody Screen Patient hx anesthesia problems: none Family hx anesthesia problems: none PMFSH Past Medical History Medical History (Updated 03/09/20 @ 00:01 by Darien Salmon) Asthma Depression GERD (gastroesophageal reflux disease) Hiatal hernia Peptic ulcer disease Surgical History Surgical History H/O esophagogastroduodenoscopy 12/2019 Family History Family History (Updated 10/05/20 @ 14:42 by Linnea Lora RN) Father Acute
[2020-10-25] MEDS: OXYTOCIN 30 UNITS/NS 500 ML 30 UNITS/500 ML BAG 6 UNITS IV CONT (18:54)
--- NOTE | 2020-10-25 21:06 | PM.OBPNLAB ---
Pain Control Date/time seen: 10/25/20 21:06 Pain control: epidural Pelvic Exam Dilation (cm): 5 Effacement (%): 90 station: 0 Amniotic membrane status: Intact Contractions Monitor mode: External Contraction pattern: Regular Status status: Category l Assessment and Plan Assessment: active labor Plan: continuous present management Comments: AROM for meconium stained fluid
--- NOTE | 2020-10-25 21:07 | PM.IMHP ---
H&P: HPI History of Present Illness Date/Time: 10/25/20 21:07 25 yo at 39w6d who presents in labor. She reports regular contractions since 11 AM. She also reports continued leakage of fluid today. She denies any vaginal bleeding. She endorses good movement. Her has been uncomplicated thus far. Chief Complaint: labor Review of Systems Cardiovascular: Cardiovascular: Denies chest pain, Denies leg edema, Denies palpitations, Denies dyspnea and Denies dyspnea on exertion Respiratory: Respiratory: Denies cough, Denies dyspnea and Denies dyspnea on exertion Gastrointestinal: Gastrointestinal: Denies abdominal pain, Denies constipation, Denies diarrhea, Denies nausea and Denies vomiting Genitourinary: Genitourinary: Denies hematuria, Denies urinary frequency, Denies dysuria, Denies pelvic pain, Denies urinary incontinence and Denies vaginal discharge Neurologic: Reports system reviewed and no additional complaints, except as documented Psychiatric: Psychiatric: Reports no additional psychiatric complaints Endocrine: Endocrine: Denies palpitations [facility] Past Medical History Medical History (Updated 10/25/20 @ 21:08 by Dieter Mancini MD) Asthma Depression GERD (gastroesophageal reflux disease) Hiatal hernia Peptic ulcer disease Surgical History Surgical History H/O esophagogastroduodenoscopy 12/2019 Family History Family History (Updated 10/05/20 @ 14:42 by Linnea Lora RN) Father Acute myocardial infarction Heart disease Other Adopted Social History Social History Smoking status: Former smoker Alcohol intake: current Substance use: former Substance use type: marijuana Other substance usage details: occasional Gender identity (if verbalized by the patient): Female Spiritual care concerns: No Meds Home Medications and Allergies Home Medications Medication Instructions Recorded Confirmed Type albuterol sulfate 90 mcg/actuation 2 inhalation INHALATION Q6H PRN 10/25/19 10/25/20 History breath activated powder inhaler,sensor ondansetron HCl [Zofran] 4 mg PO Q6H PRN 10/05/20 10/25/20 History prenat.vits,violet,ogq-bgmi-uhegc 1 tablet PO DAILY 10/05/20 10/25/20 History [ #2] cholecalciferol (vitamin D3) 8,000 unit PO DAILY 10/10/20 10/25/20 History [Vitamin D3] Allergies Allergy/AdvReac Type Severity Reaction Status Date / Time No Known Allergies Allergy Verified 10/05/20 14:38 Vital Signs Vital Signs - 24 hr 10/25/20 16:00 10/25/20 16:56 10/25/20 17:01 Temperature 36.9 C Pulse Rate 84 89 Respiratory Rate Blood Pressure 120/71 114/67 Pulse Oximetry 10/25/20 17:16 10/25/20 17:31 10/25/20 17:46 Temperature Pulse Rate 86 88 85 Respiratory Rate Blood Pressure 129/71 125/78 127/76 Pulse Oximetry 10/25/20 18:13 10/25/20 18:14 10/25/20 18:18 Temperature Pulse Rate 95 Respiratory Rate Blood Pressure 121/58 L Pulse Oximetry 99 100 10/25/20 18:23 10/25/20 18:24 10/25/20 18:25 Temperature Pulse Rate 84 90 Respiratory Rate Blood Pressure 117/69 107/67 Pulse Oximetry 100 10/25/20 18:28 10/25/20 18:30 10/25/20 18:32 Temperature Pulse Rate 98 97 99 Respiratory Rate Blood Pressure 102/61 104/60 107/55 L Pulse Oximetry 100 10/25/20 18:33 10/25/20 18:34 10/25/20 18:36 Temperature Pulse Rate 101 H 97 Respiratory Rate Blood Pressure 110/58 L 107/57 L Pulse Oximetry 100 10/25/20 18:38 10/25/20 18:41 10/25/20 18:43 Temperature 37.1 C Pulse Rate 100 Respiratory Rate 18 Blood Pressure 99/52 L Pulse Oximetry 100 100 10/25/20 18:46 10/25/20 18:48 10/25/20 18:51 Temperature Pulse Rate 95 96 Respiratory Rate Blood Pressure 95/48 L 108/58 L Pulse Oximetry 100 10/25/20 18:53 10/25/20 18:56 10/25/20 18:5
[2020-10-26] VITALS (64 sets, daily range): BP systolic 81–135; BP diastolic 49–88; PULSE 77–116; RESP 16–18; TEMP 36.9–38.3; O2SAT 96–100
--- NOTE | 2020-10-26 03:21 | P.PCNOB_ITS ---
OB - Delivery Note Procedure Procedure: Patient pushed for a spontaneous vaginal delivery. The fetus was delivered atraumatically and placed on the maternal abdomen. The cord was clamped and cut after 1 minute of life. The cord was double clamped and cut and a segment of cord was collected for cord gases. Cord blood was collected for blood type and Coomb's testing. The umbilicus evulsed from the placenta during attempted extraction. The remainder of the placenta was manually extracted. 1g of Ancef was given due to manual extraction. Bedside US was performed after manual extraction and showed a good endometrial stripe. The perineum was inspected and there was a 2nd degree perineal laceration. The laceration was repaired with 2-0 vicryl in the usual fashion. The uterus was firm and good hemostasis was noted. The patient and fetus were stable in the delivery room. Intrapartal events: None Induction method: none Delivery augmentation: pitocin Delivery monitor: external FHT Route of delivery: Episiotomy description: None Laceration Description: Perineal - 2nd Degree Delivery repair: vicryl Specimen: No Quantitative Blood Loss (ml): 400 Anesthesia type: Epidural Disposition: floor () Complications: No immediate complications [place] [facility] Date of : 10/26/20 Time of : 02:50 Weeks of gestation at delivery: 39 gender: Female Weight (pounds): 9 Weight (ounces): 0 presentation: vertex position: Right Occiput Anterior Placenta delivery description: Manual Removal and Uterine Exploration cord vessel description: 3 Vessels score one minute: 9 score five minutes: 9
[2020-10-26] MEDS: OXYTOCIN 30 UNITS/NS 500 ML 30 UNITS/500 ML BAG 125 UNITS IV CONT (03:35)
[2020-10-26] MEDS: BENZOCAINE 20% AER SPR (*SP) 56 GM CAN 1 SPRAY TOPICAL (06:13)
[2020-10-26] MEDS: WITCH HAZEL 40 PADS 1 PAD TOPICAL (06:13)
[2020-10-26] MEDS: MULTIVIT/MIN/PREN/FOL AC/IRON TABLET 1 TAB PO (08:02)
[2020-10-26] MEDS: ACETAMINOPHEN 325 MG TABLET 650 MG PO ×3 (08:02→20:56)
--- NOTE | 2020-10-26 15:29 | PC.NURSE ---
1430-Patient transferred to post room #286 via wheelchair. Support person present. Oriented to unit, room, information board, rooming in, admission packet and security measures. Patient verbalizes understanding.
[2020-10-27] MEDS: ACETAMINOPHEN 325 MG TABLET 650 MG PO (04:05)
[2020-10-27 05:04] LABS: Hematocrit 28.6 % (37.0-47.0); Hemoglobin 9.1 g/dL (12.0-15.0)
--- NOTE | 2020-10-27 07:26 | PM.OBDSVD ---
DS: Admitting Diagnosis Admitting Diagnosis Admitting Diagnosis: labor intrauterine at term OB - DS: Summary OB Procedures : None OB Procedures Intrapartum: Spontaneous Vag Delivery OB Procedures: : None Status at Discharge Functional status at discharge: independent ambulation Overall status at discharge: patient is back to baseline Time Spent with Patient Time attestation: Total time spent providing and/or coordinating discharge services: Time spent: Less than 30 minutes Exam Const: General: comfortable and no acute distress Resp: Effort & Inspection: normal respiratory effort Auscultation: clear to auscultation bilaterally Cardio: Rate: regular rate GI: GI Palp: Yes Soft to palpation Auscultation: normal bowel sounds Other: Fundus firm below umbilicus Psych: Appearance: grossly normal Mental Status: mental status grossly normal Affect: normal affect DS: Data Data Completed and Pending Pending studies at discharge: Pending at discharge 10/26/20 03:04 Surgical [PTH] Routine Labs on day of discharge: Labs from last 24 hours 10/27/20 04:09 Hgb 9.1 L Hct 28.6 L Discharge Plan Discharge Discharging Clinician: Dieter Mancini Patient Disposition: Home, Self-Care Activity: as tolerated and pelvic rest Diet: regular Patient Instructions: Antibiotic Form, Vaginal Delivery (DC) Stand Alone Forms: General Discharge Information Follow-up/Referrals: Dieter Mancini MD [Physician] - 4 Weeks Discharge Medications: New polysaccharide iron complex 150 mg iron Capsule 150 mg PO BIDWM Qty: 60 RF: 0 ibuprofen 600 mg Tablet 600 mg PO Q6H PRN (Reason: Cramping) Qty: 30 RF: 0 acetaminophen [Mapap (acetaminophen)] 325 mg Tablet 650 mg PO Q6H PRN (Reason: Mild Pain (1-3) Or Headache) Qty: 30 RF: 0 Wkm-B-Fihsub Cream 1 applic topical PRN PRN (Reason: Sore Nipples) Qty: 28 RF: 0 Continued Proair Digihaler 90 mcg/actuation aero powdr breath act w/sensor 2 inhalation INHALATION Q6H PRN (Reason: Shortness Of Breath) RF: 0 ondansetron HCl [Zofran] 4 mg Tablet 4 mg PO Q6H PRN (Reason: Nausea) RF: 0 #2 Tablet 1 tablet PO DAILY RF: 0 Vitamin D3 100 mcg (4,000 unit) Capsule 8,000 unit PO DAILY RF: 0 Date of admission: 10/25/20 15:26 Primary Care Provider: Wyatt Fragoso Admitting Provider: Dieter Mancini Attending physician on admission: Dieter Mancini Condition: Stable
[2020-10-27] MEDS: DOCUSATE SODIUM 100 MG CAPSULE PO (07:52)
[2020-10-27] MEDS: MULTIVIT/MIN/PREN/FOL AC/IRON TABLET 1 TAB PO (07:52)
[2020-10-27] MEDS: POLYSACCHARIDE IRON COMPLEX 150 MG CAPSULE PO (07:53)
[2020-10-27 08:00] VITALS: BP 95/61; PULSE 65; RESP 16; TEMP 36.6; O2SAT 97
--- NOTE | 2020-10-27 09:52 | WPDANLDPN2 ---
Anes-Prog Note L&D Date/Time: 10/27/20 09:52 Comfortable throughout: labor and delivery Neuraxial method: epidural Epidural/Spinal procedure site: clean & non-tender Neuro status: Neuro function grossly intact. Cardiovascular status: normal Respiratory status: normal Airway patency: baseline Mental status: baseline Post-Op hydration status: normal Vital Signs: Last Vital Signs Temp 37.0 C 10/26/20 20:45 Pulse 77 10/26/20 20:45 Resp 16 10/26/20 20:45 BP 120/71 10/26/20 20:45 Pulse Ox 100 10/26/20 20:45 Pain score (VAS): 0 Post-procedural complaints: none Patient feedback: Patient satisfied with anesthetic care.
--- NOTE | 2020-10-27 13:46 | PC.NURSE ---
Patient viewed the discharge video Mother & Baby Care, The First Two Weeks . Patient was given the opportunity and encouraged to ask questions. Patient verbalized understanding of information shared and has been given the mother/baby guide for home reference.
[2020-10-28 07:02] LABS: Rapid Plasma Reagin Non-Reactive (NonReactive)
[2020-10-28 07:56] VITALS: BP 119/70; PULSE 82; RESP 20; TEMP 37.1; O2SAT 99
== END 2020-10-27 14:40 | disposition home or self-care (01) | DRG 541 ==
LOC: ANHLDR 16:24 → ANHOB2 10-26 15:07
PROVIDERS: Admitting Provider Student in an Organized Health Care Education/Training Program; PCP Internal Medicine; Visit Provider Student in an Organized Health Care Education/Training Program
DX: O77.0 Labor and delivery complicated by meconium in amniotic fluid (principal); O70.1 Second degree perineal laceration during delivery; Z3A.39 39 weeks gestation of pregnancy; Z37.0 Single live birth; O73.1 Retained portions of placenta and membranes, without hemorrhage
CPT/HCPCS: 36415; 80307; 84112; 85014; 85018; 85025; 86592; 86850; 86900; 86901; 88307; A9270; J0690; J2590; J2795; J7120

== ENCOUNTER 2021-01-13 14:16 | Outpatient (CLI) | payer OTHER, SELFPAY ==
--- NOTE | ~2021-01-13 | XR_ITS ---
EXAMINATION: XR ankle LT min 3V DATE: 01/13/2021 14:31 INDICATION: Chronic lateral left ankle pain TECHNIQUE: Anteroposterior, oblique, mortise, and lateral views of the left ankle were obtained. COMPARISON: Left foot radiographs dated 10/17/2018 FINDINGS: Alignment is normal. No fracture. Joint spaces are well maintained. Normal small os trigonum. No ank le joint effusion. The soft tissues are unremarkable. IMPRESSION: 1. No osseous abnormality. Reviewed, dictated and finalized at location A. IMPRESSION: 1. No osseous abnormality.
== END 2021-01-13 14:17 | disposition home or self-care (01) ==
LOC: CHSIMG 14:18
PROVIDERS: PCP Internal Medicine; Visit Provider Internal Medicine
DX: M25.572 Pain in left ankle and joints of left foot (principal)
CPT/HCPCS: 73610

== ENCOUNTER 2021-01-25 06:45 | Outpatient (CLI) | payer OTHER, SELFPAY ==
--- NOTE | ~2021-01-25 | MR_ITS ---
EXAMINATION: MR ankle LT wo con DATE: 01/25/2021 09:54 INDICATION: Left ankle pain TECHNIQUE: Magnetic resonance imaging (MRI) of the affected ankle was performed without intravenous c ontrast. Sequences included axial, sagittal and coronal PD-weighted FS FSE and sagittal and coronal P D-weighted FSE. COMPARISON: None. FINDINGS: Medial ankle ligaments: Deep and superficial deltoid ligaments as well as the spring ligament are normal. Lateral ankle ligaments: The anterior and posterior inferior tibiofibular ligaments are normal. The anterior talofibular, calc aneofibular and posterior talofibular ligaments are normal. Tendons: Achilles tendon is normal. The peroneus longus and brevis tendons are normal. The tibialis anterior a nd extensor hallucis longus and extensor digitorum longus tendons are normal. The tibialis posterior, flexor digitorum longus and flexor hallucis longus tendons are normal. Plantar fascia: Plantar aponeurosis is normal. Bones/other: Bone alignment is normal. Normal bone marrow signal throughout. No fracture or pathologic marrow repl acing process. Joint spaces are normal. Fluid: Physiologic amount fluid in the joint spaces. There is a small ganglion cyst measuring 11 x 6 x 6 mm which appears to arise from the subtalar joint and extend from the anterolateral aspect of the fountain server ior facet of the subtalar joint IMPRESSION: 1. 11 x 6 x 6 mm ganglion cyst arising from the subtalar joint and positioned immediately deep to the marker indicating the region of maximal pain. Otherwise unremarkable MRI of the left ankle and mid a nd posterior hindfoot. Reviewed, dictated and finalized at location A. IMPRESSION: 1. 11 x 6 x 6 mm ganglion cyst arising from the subtalar joint and positioned i mmediately deep to the marker indicating the region of maximal pain. Otherwise unremarkable MRI of the left ankle and mid and posterior hindfoot.
== END 2021-01-25 06:46 | disposition home or self-care (01) ==
LOC: CHSIMG 06:47
PROVIDERS: PCP Internal Medicine; Visit Provider Internal Medicine
DX: M25.572 Pain in left ankle and joints of left foot (principal)
CPT/HCPCS: 73721

== ENCOUNTER 2021-02-10 17:08 | Emergency (ER) | payer OTHER, SELFPAY ==
--- NOTE | ~2021-02-10 | XR_ITS ---
EXAMINATION: XR ankle RT min 3V EXAM DATE: 02/10/2021 17:37 INDICATION: Injury pain and swelling right ankle laterally. Initial encounter. TECHNIQUE: Right ankle frontal, lateral and oblique projections obtained and reviewed. There is no p rior study for comparison. FINDINGS: The right ankle mortise appears intact. There are no acute fractures or dislocations iden tified. There is no subcutaneous gas. The soft tissue is unremarkable. There are no radiopaque fo reign bodies. IMPRESSION: 1. XR ankle RT min 3V exam without acute osseous findings. Reviewed, dictated and finalized at location A.
[2021-02-10 17:12] VITALS: BP 118/67; PULSE 80; RESP 16; TEMP 36.9; O2SAT 100
[2021-02-10 20:51] VITALS: BP 125/73; PULSE 79; RESP 16; O2SAT 100
--- NOTE | 2021-02-10 21:46 | ED.LOWEXIN ---
HPI - Extremity Injury (Lower) General Chief Complaint: Extremity Injury, Lower Stated Complaint: R ankle pain Time Seen by Provider: 02/10/21 21:40 Source: patient and RN notes reviewed Mode of arrival: ambulatory Limitations: no limitations and clinical condition History of Present Illness HPI Narrative: Patient had a fall yesterday from standing position, twisted right ankle, no other injuries. Patient have trouble to put weight on it or remove it. Patient denies any fever, chills, nausea, vomiting, other injuries Related Data Allergies Allergy/AdvReac Type Severity Reaction Status Date / Time No Known Allergies Allergy Verified 02/10/21 20:05 Review of Systems Review of Systems: Narrative: CONSTITUTIONAL: Denies fever, chills, or sweats. EYES: Denies visual changes, redness, or discharge. ENT: Denies rhinorrhea, congestion, sore throat, or otalgia. CARDIOVASCULAR: Denies chest pain, palpitations, or edema. RESPIRATORY: Denies cough or dyspnea. GASTROINTESTINAL: Denies abdominal pain, nausea, vomiting, or diarrhea. GENITOURINARY: Denies dysuria or hematuria. SKIN: Denies rash or itching. MUSCULOSKELETAL: Denies back pain, joint pain, or myalgia. NEUROLOGIC: Denies headache, numbness, or weakness. PSYCHIATRIC: Denies anxiety or depression. PMFSH Past Medical History Medical History Asthma Depression GERD (gastroesophageal reflux disease) Hiatal hernia Peptic ulcer disease Surgical History Surgical History H/O esophagogastroduodenoscopy 12/2019 Family History Family History Father Acute myocardial infarction Heart disease Other Adopted Social History Social History Smoking status: Former smoker Alcohol intake: current Substance use: former Substance use type: marijuana Other substance usage details: occasional Gender identity (if verbalized by the patient): Female Spiritual care concerns: No Exam Narrative: Exam Narrative: General appearance: Well-developed, well-nourished Skin: Normal color Head: Normocephalic, nontraumatic Eyes: Clear conjunctiva ENT: Oropharynx normal, ears normal, nose normal Neck: Supple, nontender Chest and respiratory: Airway patent, no respiratory distress, no accessory muscle use Heart: Regular rate/rhythm Vascular: Normal peripheral pulses, normal capillary refill. Musculoskeletal: Right ankle diffuse tenderness, slight limited range of motion, no deformity Neurologic: Alert and oriented ?3, Course Course Emergency Course: Stable Vital Signs Vital signs: Vital Signs Temperature 36.9 C 02/10/21 17:12 Pulse Rate 80 02/10/21 17:12 Respiratory Rate 16 02/10/21 17:12 Blood Pressure 118/67 02/10/21 17:12 Pulse Oximetry 100 02/10/21 17:12 Temperature 36.9 C 02/10/21 17:12 Pulse Rate 79 02/10/21 20:51 Respiratory Rate 16 02/10/21 20:51 Blood Pressure 125/73 02/10/21 20:51 Pulse Oximetry 100 02/10/21 20:51 MDM - Extremity Injury (Lower) MDM Narrative Medical decision making narrative: X-ray right ankle ordered Differential Diagnosis Differential diagnosis: Likely ankle sprain and strain and ankle fracture Imaging Data Radiologist's impression: Impressions Ankle X-Ray 02/10/21 17:38 IMPRESSION: 1. XR ankle RT min 3V exam without acute osseous findings. Critical Care Time Critical Care Time Critical Care Time: No Discharge Plan Discharge Clinical Impression: Ankle sprain and strain Patient Dispositio
[2021-02-10 22:06] VITALS: BP 131/84; PULSE 80; RESP 17; O2SAT 100
== END 2021-02-10 22:11 | disposition home or self-care (01) ==
PROVIDERS: Emergency Provider Emergency Medicine; PCP Internal Medicine
DX: S93.401A Sprain of unspecified ligament of right ankle, initial encounter (principal); S96.911A Strain of unspecified muscle and tendon at ankle and foot level, right foot, initial encounter; J45.909 Unspecified asthma, uncomplicated; K21.9 Gastro-esophageal reflux disease without esophagitis; Z87.11 Personal history of peptic ulcer disease; W18.30XA Fall on same level, unspecified, initial encounter; X50.9XXA Other and unspecified overexertion or strenuous movements or postures, initial encounter
CPT/HCPCS: 73610; 99283

== ENCOUNTER 2021-05-03 07:42 | Observation (INO) | payer OTHER, SELFPAY ==
[2021-05-03] VITALS (8 sets, daily range): BP systolic 100–128; BP diastolic 50–79; PULSE 50–74; RESP 16–20; TEMP 36.3–37; O2SAT 97–99; BMI 39.3
--- NOTE | ~2021-05-03 | CT_ITS ---
EXAMINATION: CT brain wo con EXAM DATE: 05/03/2021 08:48 INDICATION: Headache and nausea after fall. Headache X 6 Hours/Dizzy/Fall/Posterior Right Head Contus ion . TECHNIQUE: Spiral CT of the head was performed without contrast. Axial, coronal and sagittal images were reviewed. The dose-length product (DLP) for this examination was 681.00 mGy-cm. The exposure w as tailored according to patient size, and iterative reconstruction (ASIR) was used as additional dos e reduction technique. There is no prior study for comparison. FINDINGS: There is no acute intraparenchymal hemorrhage. No evidence of intraparenchymal brain mass lesion. No evidence of acute infarction. There is no mass effect or midline shift. The ventricles are normal in size. There are no extra-axial collections. There are no acute calvarial fractures. T he orbits are unremarkable. Soft tissue is unremarkable. The visualized sinuses and mastoid air boni ls are well aerated. IMPRESSION: No acute intracranial findings. Reviewed, dictated and finalized at location A.
--- NOTE | 2021-05-03 07:59 | ECG_ITS ---
Measurements Intervals [place] Rate: 44 P: 48 [place]: 143 QRS: 0 QRSD: 87 T: -3 QT: 543 QTc: 469 Interpretive Statements SINUS BRADYCARDIA WITH SINUS ARRHYTHMIA PROLONGED QT INTERVAL ABNORMAL ECG Electronically Signed On 05-05-2021 6:58:26 CDT by Aniceto Carmen D.O.
--- NOTE | 2021-05-03 08:03 | ED.GENADULT ---
HPI - General Adult General Chief complaint: Head Injury Stated complaint: fall, head injury Source: patient Mode of arrival: ambulatory Limitations: no limitations History of Present Illness HPI narrative: Daniel is a 25F with a PMH of GERD and asthma that came to the ED with head pain after a fall. She was walking out door and became lightheaded, tripped and fell backwards. She hit the back of her head but did not lose consciousness. She has a worsening occipital headache accompanied by nausea and dry heaving. She denies any neck pain, SOB, chest pain or abdominal pain. Related Data Home Medications Medication Instructions Recorded Confirmed amoxicillin 500 mg PO BID 05/03/21 05/03/21 escitalopram oxalate 5 mg PO DAILY 05/03/21 05/03/21 levonorgestrel-ethinyl estrad 1 tablet PO DAILY 05/03/21 05/03/21 [Vienva] Allergies Allergy/AdvReac Type Severity Reaction Status Date / Time No Known Allergies Allergy Verified 05/03/21 07:57 Review of Systems Constitutional: Constitutional: Reports no additional constitutional complaints Eyes: Eyes: Reports no additional eye complaints ENT: Comments: rinorrhea Cardiovascular: Cardiovascular: Reports no additional cardiovascular complaints Respiratory: Respiratory: Reports no additional respiratory complaints Gastrointestinal: Gastrointestinal: Reports no additional gastrointestinal complaints Genitourinary: Genitourinary: Reports no additional female genitourinary complaints Musculoskeletal: Musculoskeletal: Reports no additional musculoskeletal complaints Integumentary/Breasts: Skin/Breast: Reports system reviewed and no additional complaints, except as docu Neurologic: Reports as per HPI Psychiatric: Psychiatric: Reports no additional psychiatric complaints Endocrine: Endocrine: Reports no additional endocrine complaints Hematologic/Lymphatic: Hematologic/Lymphatic: Reports no additional hematologic/lymphatic complaints Allergic/Immunologic: Allergic/Immunologic: Reports no additional allergic/immunologic complaints [facility] Past Medical History Medical History Asthma Depression GERD (gastroesophageal reflux disease) Hiatal hernia Peptic ulcer disease Surgical History Surgical History H/O esophagogastroduodenoscopy 12/2019 Family History Family History Father Acute myocardial infarction Heart disease Other Adopted Social History Social History Smoking status: Former smoker Alcohol intake: current Alcohol use details: occasional Substance use: former Substance use type: marijuana Other substance usage details: occasional Gender identity (if verbalized by the patient): Female Spiritual care concerns: No Exam Const: General: alert; No confusion Orientation/consciousness: patient oriented x3 Limitations: No altered mental status Other: Lying in bed crying HENMT: Head: normal to inspection General nose exam: Normal external nose present Other: atraumatic, no crepitus Eyes: Conjunctivae: conjunctivae normal Pupils: Equal, round and reactive pupils present Neck: Neck: normal visual inspection Chest: Chest palpation & inspection: normal inspection of the chest Resp: Effort & Inspection: normal respiratory effort Auscultation: clear to auscultation bilaterally Cardio: Rate: regular rate Rhythm: regular rhythm GI: Inspection: non-distended GI Palp: Yes Soft to palpation and No Tenderness to palpation present (GI) Back/Spine/Pelvis: Back: no CVA tenderness Skin: General skin exam: normal color Rashes: no rashes Neuro: General: patient oriented x3 and moves all extremities Extrem: General: normal to inspection Psych: Mental Status: mental status grossly normal Course Course Maureen
[2021-05-03 08:26] LABS: Basophils Absolute Auto 0.03 K/mm3 (0.00-0.10); Basophils Percent Auto 0.4 % (0.0-1.0); Eosinophils Absolute Auto 0.15 K/mm3 (0.02-0.50); Eosinophils Percent Auto 1.9 % (1.0-6.0); Hematocrit 38.1 % (35.0-49.0); Hemoglobin 12.1 g/dL (12.0-15.0); Immature Granulocyte Absolute 0.03 K/mm3 (0.00-0.00); Immature Granulocyte Percent A 0.4 % (0.0-0.0); Lymphocytes Absolute Auto 2.36 K/mm3 (1.10-4.50); Lymphocytes Percent Auto 30.3 % (18.0-42.0); Mean Corpuscular HGB Conc 31.8 g/dL (32.0-36.0); Mean Corpuscular Hemoglobin 25.6 pg (27.0-31.0); Mean Corpuscular Volume 80.7 fL (78.0-102.0); Mean Platelet Volume 9.1 fl (9.2-11.8); Monocytes Absolute Auto 0.47 K/mm3 (0.10-0.90); Neutrophils Absolute Auto 4.7 K/mm3 (1.7-7.2); Platelet Count Result 306 K/mm3 (150-420); Red Blood Count 4.72 M/mm3 (4.20-5.40); Red Cell Distribution Width 14.8 % (11.6-14.4); White Blood Count 7.8 K/mm3 (4.8-10.8)
[2021-05-03 08:27] LABS: Pregnancy On Board Control Positive; Urine Pregnancy Test Negative
[2021-05-03] MEDS: MORPHINE SULFATE (*CRX) 4 MG/ML INJ IV PUSH (08:40)
[2021-05-03 08:52] LABS: Alanine Aminotransferase 37 U/L (14-59); Albumin Level 3.3 g/dL (3.4-5.0); Alkaline Phosphatase 79 U/L (46-116); Anion Gap 9 mmol/L (8-16); Aspartate Amino Transferase 22 U/L (15-37); Bilirubin,Total 0.3 mg/dL (0.00-1.00); Blood Urea Nitrogen 12 mg/dL (7-18); Calcium 8.4 mg/dL (8.5-10.1); Carbon Dioxide 28 mmol/L (21-32); Chloride 105 mmol/L (98-108); Estimated CRCL calculation 145 ml/min; Estimated Glomerular Filt Rate > 60; Glucose 102 mg/dL (70-99); Osmolality Calculated 293 mOsm/kg (285-295); Potassium 3.4 mmol/L (3.5-5.1); Sodium 142 mmol/L (136-145); Thyroid Stimulating Hormone 2.57 uIU/mL (0.36-3.74); Total Protein 7.2 g/dL (6.4-8.2)
[2021-05-03] MEDS: MAGNESIUM SULF 2 GM/WATER 50ML 2 GM/50 ML BAG IVPB (09:11)
--- NOTE | 2021-05-03 09:27 | PC.NURSE ---
pt testing family at this time. denies pain, nausea or dizziness. denies sob. iv infusing without sx of infiltration
--- NOTE | 2021-05-03 10:11 | ECG_ITS ---
Measurements Intervals [place] Rate: 50 P: 44 [place]: 141 QRS: 11 QRSD: 93 T: 3 QT: 562 QTc: 513 Interpretive Statements SINUS BRADYCARDIA WITH MARKED SINUS ARRHYTHMIA PROLONGED QT INTERVAL ABNORMAL ECG Electronically Signed On 05-05-2021 6:59:44 CDT by Aniceto Carmen D.O.
--- NOTE | 2021-05-03 13:14 | PM.IMHP ---
H&P: HPI History of Present Illness Date/Time: 05/03/21 13:14 this is a 25-year-old female that presented to our emergency department with a near syncope episode. Patient has a past medical history of asthma, depression, GERD, hiatal hernia, and peptic disease. According to patient when she woke up this morning she felt bad, she noted that she was experiencing congestion, headache and chest pains. She noted that she was leaving out to go to work when she became lightheaded and fell and hit the right side of her head she does deny losing consciousness. She did note that shortly afterwards she did have a headache with nausea and dry heaving. She currently is not experiencing any headache or nausea and vomiting. She notes that she did also experience some shortness of breath but she has a history of asthma. Patient's vital signs 97.9, 67, 16, 99% on room air, 114/79, WBC 7.8, hemoglobin 12.1, hematocrit 38.1, platelets 306, sodium 142, potassium 3.4, creatinine 0.61, BUN 12, glucose 102, liver function test within normal limits, test negative, CT of the head unremarkable. Patient was given Zosyn and warfarin in the ED . EKG shows sinus bradycardia with sinus arrhythmia and a prolonged QT. Patient will be admitted as an observation patient on telemetry with neuro checks. <RICKI Joe - Last Filed: 05/03/21 13:47> Chief Complaint: Near syncope episode lightheadedness <RICKI Joe - Last Filed: 05/03/21 13:47> Review of Systems Review of Systems: A 14 organ system Review of Systems was performed and pertinent positives included in the HPI, otherwise remaining ROS is negative. <RICKI Joe - Last Filed: 05/03/21 13:47> [facility] Past Medical History Medical History: Medical History Asthma Depression GERD (gastroesophageal reflux disease) Hiatal hernia Peptic ulcer disease <RICKI Joe - Last Filed: 05/03/21 13:47> Surgical History Surgical History: Surgical History H/O esophagogastroduodenoscopy 12/2019 <RICKI Joe - Last Filed: 05/03/21 13:47> Family History Family History: Family History Father Acute myocardial infarction Heart disease Other Adopted <RICKI Joe - Last Filed: 05/03/21 13:47> Social History Social History: Social History Smoking packs per day: 0.5 Smoking cigarettes per day: 10.0 Years smoked: 2 Smoking pack-years: 1.00 Smoking status: Former smoker Tobacco type: cigarettes Smoking end date: 11/08/19 Alcohol intake: never Alcohol use details: occasional Substance use: former Substance use type: marijuana Other substance usage details: Occasional Gender identity (if verbalized by the patient): Female Spiritual care concerns: No <RICKI Joe - Last Filed: 05/03/21 13:47> Meds Home Medications and Allergies Home medications: Home Medications Medication Instructions Recorded Confirmed Type amoxicillin 500 mg PO BID 05/03/21 05/03/21 History escitalopram oxalate 5 mg PO DAILY 05/03/21 05/03/21 History levonorgestrel-ethinyl estrad 1 tablet PO DAILY 05/03/21 05/03/21 History [Vienva] <RICKI Joe - Last Filed: 05/03/21 13:47> Allergies/Adverse reactions: Allergies Allergy/AdvReac Type Severity Reaction Status Date / Time No Known Allergies Allergy Verified 05/03/21 07:57 <RICKI Joe - Last Filed: 05/03/21 13:47> Vital Signs Vital Signs - 24 hr 05/03/21 07:50 05/03/21 09:01 05/03/21 11:31 Temperature 98.6 F 97.9 F Pulse Rate 64 54 L 60 Respiratory Rate 20 18 16 Blood Pressure 127/76 100/50 L 114/79 Pulse Oximetry 97 99 99 <RICKI Joe
[2021-05-03] MEDS: AMOXICILLIN 500 MG CAPSULE PO ×2 (13:34→17:07)
[2021-05-03] MEDS: polyethylene glycoL 3350 17 GM POWD.PACK PO (13:50)
[2021-05-03] MEDS: traMADol HCL (*CRX) 25 MG TABLET PO (13:50)
--- NOTE | 2021-05-03 15:15 | PC.NURSE ---
Patient asleep. No apparent distress. Call light in reach. Telemetry. Will continue to monitor.
--- NOTE | 2021-05-03 20:51 | ECG_ITS ---
Measurements Intervals [place] Rate: 49 P: 46 TX: 142 QRS: 7 QRSD: 92 T: -2 QT: 555 QTc: 502 Interpretive Statements SINUS BRADYCARDIA WITH SINUS ARRHYTHMIA BORDERLINE ST-T WAVE ABNORMALITY- INFERIOR LEADS PROLONGED QT INTERVAL ABNORMAL ECG Electronically Signed On 05-05-2021 7:01:41 CDT by Aniceto Carmen D.O.
[2021-05-04] VITALS: BP 100/69; PULSE 60; RESP 14; TEMP 37; O2SAT 99
[2021-05-04 04:00] VITALS: BP 105/60; PULSE 54; RESP 14; TEMP 36.6; O2SAT 100
[2021-05-04 05:26] LABS: Hematocrit 39.1 % (35.0-49.0); Hemoglobin 12.1 g/dL (12.0-15.0); Mean Corpuscular HGB Conc 30.9 g/dL (32.0-36.0); Mean Corpuscular Hemoglobin 25.2 pg (27.0-31.0); Mean Corpuscular Volume 81.5 fL (78.0-102.0); Mean Platelet Volume 9.4 fl (9.2-11.8); Platelet Count Result 317 K/mm3 (150-420); White Blood Count 7.2 K/mm3 (4.8-10.8)
[2021-05-04 05:57] LABS: Alanine Aminotransferase 31 U/L (14-59); Albumin Level 3.1 g/dL (3.4-5.0); Alkaline Phosphatase 68 U/L (46-116); Anion Gap 11 mmol/L (8-16); Aspartate Amino Transferase 12 U/L (15-37); Bilirubin,Total 0.4 mg/dL (0.00-1.00); Blood Urea Nitrogen 10 mg/dL (7-18); Calcium 8.5 mg/dL (8.5-10.1); Carbon Dioxide 26 mmol/L (21-32); Chloride 105 mmol/L (98-108); Estimated CRCL calculation 172 ml/min; Estimated Glomerular Filt Rate > 60; Glucose 106 mg/dL (70-99); Magnesium 2.1 mg/dL (1.8-2.4); Osmolality Calculated 293 mOsm/kg (285-295); Potassium 3.5 mmol/L (3.5-5.1); Sodium 142 mmol/L (136-145); Total Protein 6.9 g/dL (6.4-8.2)
[2021-05-04 05:58] LABS: Thyroid Stimulating Hormone Reflex 1.08 u/IU/mL (0.36-3.74); Troponin I < 4.0 ng/L (0.00-60.4)
[2021-05-04] MEDS: ALBUTEROL SULFATE (*SP) INHALER 2 PUFF INHALATION (07:06)
--- NOTE | 2021-05-04 07:49 | ECG_ITS ---
Measurements Intervals [place] Rate: 64 P: 56 WI: 140 QRS: 2 QRSD: 87 T: -6 QT: 503 QTc: 522 Interpretive Statements SINUS RHYTHM WITH MARKED SINUS ARRHYTHMIA MINIMAL Q WAVES- HIGH LATERAL LEADS PROLONGED QT INTERVAL ABNORMAL ECG Electronically Signed On 05-04-2021 11:18:55 CDT by Aniceto Carmen D.O.
[2021-05-04 08:00] VITALS: BP 113/60; PULSE 58; PULSE 86; RESP 18; TEMP 36.6; O2SAT 100
--- NOTE | 2021-05-04 08:08 | P.DS_ITS ---
DS: Admitting Diagnosis Discharge Date 05/04/2021 <Margarita Stroud UNIVERSITY ADMINISTRATOR-C - Last Filed: 05/04/21 09:11> Admitting Diagnosis Near syncope episode <Margarita Stroud UNIVERSITY ADMINISTRATORBernadineAndrés - Last Filed: 05/04/21 09:11> DS: Discharge Diagnosis Discharge Diagnosis (1) Prolonged Q-T interval on ECG: Code(s): R94.31 - Abnormal electrocardiogram [ECG] [EKG] <Margarita StroudRICKI - Last Filed: 05/04/21 09:11> Status: Acute <Margarita Stroud UNIVERSITY ADMINISTRATORBernadineAndrés - Last Filed: 05/04/21 09:11> Assessment and Plan: * EKG indicate prolonged QT intervals * Mag given in ED the prolonged QT intervals remain * Cardiology [facility] contacted for recommendation recommended the patient be admitted for observation * Continue telemetry * Continue neurochecks Discharge * Patient will discharge and instructed to discontinue the use of Lexapro due to possible cause of prolonged QT interval * Troponin negative * Patient given a short dose of Ativan for anxiety to replace Lexapro <Margarita Stroud UNIVERSITY ADMINISTRATOR-C - Last Filed: 05/04/21 09:11> (2) Near syncope: Code(s): R55 - Syncope and collapse <Margarita Stroud UNIVERSITY ADMINISTRATORBernadineAndrés - Last Filed: 05/04/21 09:11> Status: Acute <Margarita Stroud UNIVERSITY ADMINISTRATORBernadineAndrés - Last Filed: 05/04/21 09:11> Assessment and Plan: * Resolved * Etiology unknown * Will monitor for cardiac arrhythmias <Margarita TrimbleRICKI Connors - Last Filed: 05/04/21 09:11> (3) GERD (gastroesophageal reflux disease): Qualifiers: Esophagitis presence: with esophagitis Qualified Code(s): K21.0 - Gastro-esophageal reflux disease with esophagitis <Terencejatinder AtilioRICKI Connors - Last Filed: 05/04/21 09:11> Code(s): K21.9 - Gastro-esophageal reflux disease without esophagitis <Margarita AtilioRICKI Connors - Last Filed: 05/04/21 09:11> Status: Acute <Terencejatinder TrimbleRICKI Connors - Last Filed: 05/04/21 09:11> Assessment and Plan: * Pepcid as needed <RICKI Joe - Last Filed: 05/04/21 09:11> (4) Hiatal hernia: Code(s): K44.9 - Diaphragmatic hernia without obstruction or gangrene <RICKI Joe - Last Filed: 05/04/21 09:11> Status: Acute <RICKI Joe - Last Filed: 05/04/21 09:11> (5) Asthma: Code(s): J45.909 - Unspecified asthma, uncomplicated <RICKI Jeo - Last Filed: 05/04/21 09:11> Status: Acute <RICKI Joe Last Filed: 05/04/21 09:11> Assessment and Plan: * Albuterol as needed <RICKI Joe - Last Filed: 05/04/21 09:11> DS: Summary Hospital Course Reason for hospitalization: Near syncope episode <RICKI Joe - Last Filed: 05/04/21 09:11> Hospital Course: this is a 25-year-old female that presented to our emergency department with a near syncope episode. Patient has a past medical history of asthma, depression, GERD, hiatal hernia, and peptic disease. According to patient when she woke up this morning she felt bad, she noted that she was experiencing congestion, headache and chest pains. She noted that she was leaving out to go to work when she became lightheaded and fell and hit the right side of her head she does deny losing consciousness. She did note that shortly afterwards she did have a headache with nausea and dry heaving. She currently is not experiencing any headache or nausea and vomiting. She notes that she did also experience some shortness of breath but she has a history of asthma. Today patient agrees that she is ready for discharge. Her night was uneventful. Patient wi
--- NOTE | 2021-05-04 08:08 | PM.DS ---
DS: Admitting Diagnosis Discharge Date 05/04/2021 <Margarita Stroud ENGLISH LECTURER-C - Last Filed: 05/04/21 09:11> Admitting Diagnosis Near syncope episode <Margarita Stroud ENGLISH LECTURERBernadineAndrés - Last Filed: 05/04/21 09:11> DS: Discharge Diagnosis Discharge Diagnosis (1) Prolonged Q-T interval on ECG: Code(s): R94.31 - Abnormal electrocardiogram [ECG] [EKG] <Margarita StroudRICKI - Last Filed: 05/04/21 09:11> Status: Acute <Margarita Stroud ROWDYAndrés - Last Filed: 05/04/21 09:11> Assessment and Plan: EKG indicate prolonged QT intervals Mag given in ED the prolonged QT intervals remain Cardiology [facility] contacted for recommendation recommended the patient be admitted for observation Continue telemetry Continue neurochecks Discharge Patient will discharge and instructed to discontinue the use of Lexapro due to possible cause of prolonged QT interval Troponin negative Patient given a short dose of Ativan for anxiety to replace Lexapro <Margarita TrimbleAvi Maximus ENGLISH LECTURER-C - Last Filed: 05/04/21 09:11> (2) Near syncope: Code(s): R55 - Syncope and collapse <Margarita Stroud ENGLISH LECTURERBernadineAndrés - Last Filed: 05/04/21 09:11> Status: Acute <Margarita Stroud RICKI - Last Filed: 05/04/21 09:11> Assessment and Plan: Resolved Etiology unknown Will monitor for cardiac arrhythmias <Margarita TrimbleAvi MaximusKASIAJillAndrés - Last Filed: 05/04/21 09:11> (3) GERD (gastroesophageal reflux disease): Qualifiers: Esophagitis presence: with esophagitis Qualified Code(s): K21.0 - Gastro-esophageal reflux disease with esophagitis <Margarita AtilioRICKI Connors - Last Filed: 05/04/21 09:11> Code(s): K21.9 - Gastro-esophageal reflux disease without esophagitis <Margarita AtilioRICKI Connors - Last Filed: 05/04/21 09:11> Status: Acute <Margarita AtilioRICKI Connors - Last Filed: 05/04/21 09:11> Assessment and Plan: Pepcid as needed <RICKI Joe - Last Filed: 05/04/21 09:11> (4) Hiatal hernia: Code(s): K44.9 - Diaphragmatic hernia without obstruction or gangrene <RICKI Joe - Last Filed: 05/04/21 09:11> Status: Acute <RICKI Joe - Last Filed: 05/04/21 09:11> (5) Asthma: Code(s): J45.909 - Unspecified asthma, uncomplicated <RICKI Joe - Last Filed: 05/04/21 09:11> Status: Acute <RICKI Joe - Last Filed: 05/04/21 09:11> Assessment and Plan: Albuterol as needed <RICKI Joe - Last Filed: 05/04/21 09:11> DS: Summary Hospital Course Reason for hospitalization: Near syncope episode <RICKI Joe - Last Filed: 05/04/21 09:11> Hospital Course: this is a 25-year-old female that presented to our emergency department with a near syncope episode. Patient has a past medical history of asthma, depression, GERD, hiatal hernia, and peptic disease. According to patient when she woke up this morning she felt bad, she noted that she was experiencing congestion, headache and chest pains. She noted that she was leaving out to go to work when she became lightheaded and fell and hit the right side of her head she does deny losing consciousness. She did note that shortly afterwards she did have a headache with nausea and dry heaving. She currently is not experiencing any headache or nausea and vomiting. She notes that she did also experience some shortness of breath but she has a history of asthma. Today patient agrees that she is ready for discharge. Her night was uneventful. Patient with this charge and instructed to discontinue the use of Lexapro due to possible cause of abnormal EKG she will need to follow-up with her primary care physician for a new anxiety medication. The patient denies SOB, CP, palpitation, extremity numbness, lightheadedness, dizziness, constipation, diarrhea, chills, or fever. <Margarita Stroud, ENGLISH LECTURER-C - [place]
[2021-05-04] MEDS: AMOXICILLIN 500 MG CAPSULE PO (08:37)
--- NOTE | 2021-05-04 11:11 | PC.NURSE ---
The patient Terra Pineda 25 y/o Female. Discharged to home from 2nd floor room 227. Electronic copy of discharge provided and verbally reviewed.New medications reviewed, emphasis on making follow up appointments with Fare Enforcement Officer and Dr. Fragoso in one week. IV access discontinued with 2x2 folded and bandage applied. EKG done this a.m. and heart monitor discontinued. Emphasis on management to avoidance of syncope upon first awakening, No questions or concerns, transported down to personal vehicle with as guard driver via wheelchair.
--- NOTE | 2021-05-04 12:13 | PC.NURSE ---
permission received from patient to fax work excuse to patients work. Fax number #[phone]
--- NOTE | 2021-05-08 13:53 | PC.NURSE ---
Unable to contact for discharge call back.
== END 2021-05-04 11:00 | disposition home or self-care (01) ==
LOC: CHSED 10:54 → CHS2ND 05-04 07:05
PROVIDERS: Admitting Provider Family Medicine; Emergency Provider Family Medicine; PCP Internal Medicine; Visit Provider Nurse Practitioner
DX: R94.31 Abnormal electrocardiogram [ECG] [EKG] (principal); R55 Syncope and collapse; R00.1 Bradycardia, unspecified; J45.909 Unspecified asthma, uncomplicated; K21.9 Gastro-esophageal reflux disease without esophagitis; K44.9 Diaphragmatic hernia without obstruction or gangrene; F32.9 Major depressive disorder, single episode, unspecified; Z87.891 Personal history of nicotine dependence
CPT/HCPCS: 36415; 70450; 80053; 81025; 83735; 84443; 84484; 85025; 85027; 93005; 96365; 96375; 99285; A9270; G0378; G0379; J2270; J3475

== ENCOUNTER 2021-05-05 12:29 | Emergency (ER) | payer OTHER, SELFPAY ==
--- NOTE | ~2021-05-05 | CT_ITS ---
EXAMINATION: CT brain wo con EXAM DATE: 05/05/2021 13:51 INDICATION: Dizziness, frontal headache. Left-sided chest pain. TECHNIQUE: Spiral CT of the head was performed without contrast. Axial, coronal and sagittal images were reviewed. The dose-length product (DLP) for this examination was 605.33 mGy-cm. The exposure w as tailored according to patient size, and iterative reconstruction (ASIR) was used as additional dos e reduction technique. Comparison is made to prior examination from 05/03/2021. FINDINGS: There is no acute intraparenchymal hemorrhage. No evidence of intraparenchymal brain mass lesion. No evidence of acute infarction. There is no mass effect or midline shift. The ventricles are normal in size. There are no extra-axial collections. There are no acute calvarial fractures. T he orbits are unremarkable. Soft tissue is unremarkable. The visualized sinuses and mastoid air boni ls are well aerated. IMPRESSION: 1. Unremarkable head CT examination. Reviewed, dictated and finalized at location A.
--- NOTE | ~2021-05-05 | XR_ITS ---
XR chest 2V DATE: 05/05/2021 13:51 INDICATION: Left-sided chest pain. Dizziness. Frontal headache. TECHNIQUE: 2 views COMPARISON: 10/12/2019 CTA chest 12/29/2016 PA and lateral chest FINDINGS: Normal heart size. No hilar or mediastinal enlargement. No pulmonary infiltrate or consolid ation, pleural effusion or pulmonary vascular congestion or pneumothorax. IMPRESSION: Negative Reviewed, dictated and finalized at location B. IMPRESSION: Negative
--- NOTE | 2021-05-05 12:43 | ECG_ITS ---
Measurements Intervals [place] Rate: 90 P: 53 MO: 130 QRS: 11 QRSD: 93 T: 14 QT: 403 QTc: 495 Interpretive Statements SINUS RHYTHM WITH SINUS ARRHYTHMIA DELAYED PRECORDIAL R/S TRANSITION MINIMAL Q WAVES- HIGH LATERAL LEADS BORDERLINE T WAVE ABNORMALITY- INFERIOR LEADS PROLONGED QT INTERVAL ABNORMAL ECG Electronically Signed On 05-05-2021 13:45:42 CDT by Aniceto Carmen D.O.
[2021-05-05 12:45] VITALS: BP 120/71; PULSE 83; RESP 20; TEMP 36.4; O2SAT 100
[2021-05-05] MEDS: MECLIZINE HCL 25 MG TABLET PO (13:22)
[2021-05-05] MEDS: SODIUM CHLORIDE 0.9% IV 1,000 ML 999 ML IV CONT (13:25)
[2021-05-05 13:27] LABS: Basophils Absolute Auto 0.04 K/mm3 (0.00-0.10); Basophils Percent Auto 0.5 % (0.0-1.0); Eosinophils Absolute Auto 0.14 K/mm3 (0.02-0.50); Eosinophils Percent Auto 1.6 % (1.0-6.0); Hematocrit 39.1 % (35.0-49.0); Hemoglobin 12.4 g/dL (12.0-15.0); Immature Granulocyte Absolute 0.06 K/mm3 (0.00-0.00); Immature Granulocyte Percent A 0.7 % (0.0-0.0); Lymphocytes Absolute Auto 2.04 K/mm3 (1.10-4.50); Lymphocytes Percent Auto 23.7 % (18.0-42.0); Mean Corpuscular HGB Conc 31.7 g/dL (32.0-36.0); Mean Corpuscular Hemoglobin 25.6 pg (27.0-31.0); Mean Corpuscular Volume 80.8 fL (78.0-102.0); Monocytes Absolute Auto 0.42 K/mm3 (0.10-0.90); Monocytes Percent Auto 4.9 % (2.0-11.0); Neutrophils Absolute Auto 5.9 K/mm3 (1.7-7.2); Neutrophils Percent Auto 68.6 % (50.0-70.0); Platelet Count Result 306 K/mm3 (150-420); Red Blood Count 4.84 M/mm3 (4.20-5.40); Red Cell Distribution Width 14.9 % (11.6-14.4); White Blood Count 8.6 K/mm3 (4.8-10.8)
[2021-05-05 13:30] LABS: Add Urine Microscopic? YES; Appearance Urine Sl Cloudy (Clear); Bilirubin Urine Negative (Negative); Blood Urine Negative (Negative); Color Urine Light Yellow (Yellow); Glucose Urine UA Negative (Negative); Ketones Urine Negative (Negative); Leukocyte Esterase Ur 1+ (Negative); Nitrate Urine Negative (Negative); Protein Urine Negative (Negative); pH Urine 7.5 (5.0-8.0)
[2021-05-05 13:41] LABS: Amphetamine Screen Urine Negative (Negative); Bacteria Urine 2+ /hpf; Barbiturate Screen Urine Negative (Negative); Benzodiazepines Screen Urine Negative (Negative); Cannabinoid Screen Urine Negative (Negative); Cocaine Screen Urine Negative (Negative); Methadone Screen Urine Negative (Negative); Opiate Screen Urine Negative (Negative); Phencyclidine Screen Urine Negative (Negative); RBC Urine None seen /hpf (0-2); Squamous Epithelial Cell Urine Moderate /hpf (Few)
[2021-05-05 13:49] LABS: Alanine Aminotransferase 44 U/L (14-59); Albumin Level 3.4 g/dL (3.4-5.0); Alkaline Phosphatase 72 U/L (46-116); Anion Gap 11 mmol/L (8-16); Aspartate Amino Transferase 18 U/L (15-37); Bilirubin,Total 0.4 mg/dL (0.00-1.00); Blood Urea Nitrogen 9 mg/dL (7-18); Calcium 8.6 mg/dL (8.5-10.1); Carbon Dioxide 25 mmol/L (21-32); Chloride 104 mmol/L (98-108); Estimated CRCL calculation 159 ml/min; Estimated Glomerular Filt Rate > 60; Ethanol < 3 mg/dL (0-6); Glucose 92 mg/dL (70-99); Osmolality Calculated 288 mOsm/kg (285-295); Potassium 3.6 mmol/L (3.5-5.1); Sodium 140 mmol/L (136-145); Total Protein 7.5 g/dL (6.4-8.2); Troponin I < 4.0 ng/L (0.00-60.4)
[2021-05-05 13:50] LABS: SPREG INTERNAL CONTROL Positive; Serum Qual hCG Negative
[2021-05-05 13:52] LABS: Lactic Acid Reflex 0.6 mmol/L (0.4-2.0)
--- NOTE | 2021-05-05 14:48 | ED.DIZZY ---
HPI - Dizziness General Chief Complaint: Dizziness Stated Complaint: dizzyness/ chest pain Time Seen by Provider: 05/05/21 12:31 Source: patient Limitations: no limitations History of Present Illness MD elicited complaint: dizziness Pertinent past history: BPPV Onset (ago): day(s) (1) Timing: gradual onset Severity: mild Description: room spinning , lightheadedness and off-balance History of similar symptoms: Yes Exacerbating factors: nothing Relieving factors: remaining still Associated symptoms: nausea Related Data Home Medications Medication Instructions Recorded Confirmed amoxicillin 500 mg PO BID 05/03/21 05/05/21 levonorgestrel-ethinyl estrad 1 tablet PO DAILY 05/03/21 05/05/21 [Vienva] Allergies Allergy/AdvReac Type Severity Reaction Status Date / Time No Known Allergies Allergy Verified 05/03/21 07:57 Review of Systems Review of Systems: All systems reviewed & are unremarkable except as noted in HPI and below PMFSH Past Medical History Medical History Asthma Depression GERD (gastroesophageal reflux disease) Hiatal hernia Peptic ulcer disease Surgical History Surgical History H/O esophagogastroduodenoscopy 12/2019 Family History Family History Father Acute myocardial infarction Heart disease Other Adopted Social History Social History Smoking packs per day: 0.5 Smoking cigarettes per day: 10.0 Years smoked: 2 Smoking pack-years: 1.00 Smoking status: Former smoker Tobacco type: cigarettes Smoking end date: 11/08/19 Alcohol intake: never Alcohol use details: occasional Substance use: former Substance use type: marijuana Other substance usage details: Occasional Gender identity (if verbalized by the patient): Female Spiritual care concerns: No Exam Const: General: no acute distress Orientation/consciousness: patient oriented x3 HENMT: Head: normal to inspection Ears: TM's normal bilaterally General nose exam: Normal external nose present and Normal nares present Face and sinus: normal facial exam Eyes: Conjunctivae: conjunctivae normal Pupils: Equal, round and reactive pupils present EOM: EOMs intact bilaterally Neck: Neck: normal visual inspection and no lymphadenopathy Chest: Chest palpation & inspection: normal inspection of the chest Resp: Effort & Inspection: normal respiratory effort Auscultation: clear to auscultation bilaterally Cardio: Rate: regular rate Rhythm: regular rhythm GI: Auscultation: normal bowel sounds : General: Yes bladder normal to palpation and Yes no CVA tenderness Back/Spine/Pelvis: Back: no CVA tenderness Skin: General skin exam: normal color Rashes: no rashes Neuro: General: patient oriented x3, moves all extremities, no meningeal signs, no focal motor deficits and CN's II-XI intact bilaterally Cranial nerves: Yes Nystagmus not present Extrem: General: normal to inspection and no pedal edema Psych: Appearance: grossly normal Mental Status: mental status grossly normal Affect: normal affect Thought content: Yes Normal thought content present Course Course Emergency Course: Pt remained stable in the ED wth less dizzinees, Reevaluation(s) Date: 05/05/21 Time: 13:47 Vital Signs Vital signs: Vital Signs Temperature 36.4 C 05/05/21 12:45 Pulse Rate 83 05/05/21 12:45 Respiratory Rate 20 05/05/21 12:45 Blood Pressure 120/71 05/05/21 12:45 Pulse Oximetry 100 05/05/21 12:45 Temperature 36.2 C L 05/05/21 15:02 Pulse Rate 75 05/05/21 15:02 Respiratory Rate 18 05/05/21 15:02 Blood Pressure 105/65 05/05/21 15:02 Pulse Oximetry 98 05/05/21 15:02 MDM - Dizziness Differential Diagnosis Differential diagnosis: Likely benign paroxysmal
[2021-05-05 15:02] VITALS: BP 105/65; PULSE 75; RESP 18; TEMP 36.2; O2SAT 98
== END 2021-05-05 15:07 | disposition home or self-care (01) ==
PROVIDERS: Emergency Provider Emergency Medicine; PCP Internal Medicine
DX: R42 Dizziness and giddiness (principal); R07.9 Chest pain, unspecified
CPT/HCPCS: 36415; 70450; 71046; 80053; 80307; 81001; 83605; 84484; 84703; 85025; 93005; 96360; 99283; 99284; A9270; J7030

== ENCOUNTER 2021-05-07 10:27 | Outpatient (CLI) | payer OTHER, SELFPAY ==
--- NOTE | 2021-06-09 08:28 | WPDHOLTEREM ---
Holter/Event Monitor Holter/Event Monitor Date of procedure: 06/09/21 Holter/Event Procedure: Event Monitor Indications: Syncope Conclusion: 1. 26 days event monitor between 05/07/21-06/05/21. There are 44 available transmissions for analysis. 2. Underlying rhythm is sinus rhythm. HR range 49-122 bpm; average HR 79 bpm. 3. There are occasional premature supraventricular complexes with total burden of 1%. No supraventricular tachycardia. 4. There are occasional premature ventricular complexes with total burden of <1%. No ventricular tachycardia. 5. No significant pauses greater than 2 seconds. 6. Patient reports 34 episodes of symptoms of lightheadedness, chest pain, heart racing, dizziness and symptom other than listed which demonstrate sinus rhythm, HR range 55-122 bpm.
== END 2021-05-07 10:28 | disposition home or self-care (01) ==
PROVIDERS: PCP Internal Medicine; Visit Provider Internal Medicine
DX: I49.9 Cardiac arrhythmia, unspecified (principal); R55 Syncope and collapse
CPT/HCPCS: 93270

== ENCOUNTER 2021-11-04 09:10 | Emergency (ER) | payer OTHER, SELFPAY ==
[2021-11-04 09:29] VITALS: BP 131/68; PULSE 72; RESP 20; TEMP 36.2; O2SAT 99
--- NOTE | 2021-11-04 09:35 | ED.URI ---
HPI - URI/Sore Throat General Chief Complaint: Upper Respiratory Infection Stated Complaint: SORE THROAT HEADACHE TINGLING IN LIPS Time Seen by Provider: 11/04/21 09:41 History of Present Illness HPI Narrative: 26-year-old female patient presents to ER with complaints of waking up with right lower back pain this morning. She also noticed that she has some soreness in the throat and some sinus congestion as well. She states that she felt some chest heaviness and some tingling of the hands and mouth the after waking up but that has dissipated since then. She denies any difficulty breathing. She denies any pain going down the arms or into the neck or jaw. She denies radiation of pain into the back . Patient denies any urinary frequency or dysuria. She denies any nausea vomiting or diarrhea. She denies any fever or chills. Patient apparently was recently diagnosed with a prolonged QT interval and a leaky valve upon an echocardiogram and also had a stress test which was reportedly normal. She reports no routine medications currently. Other than her control pill Related Data Home Medications Medication Instructions Recorded Confirmed levonorgestrel-ethinyl estrad 1 tablet PO DAILY 05/03/21 11/04/21 [Vienva] Allergies Allergy/AdvReac Type Severity Reaction Status Date / Time No Known Allergies Allergy Verified 11/04/21 09:38 Review of Systems Review of Systems: All systems reviewed & are unremarkable except as noted in HPI and below PMFSH Past Medical History Medical History Asthma Depression GERD (gastroesophageal reflux disease) Hiatal hernia Peptic ulcer disease Surgical History Surgical History H/O esophagogastroduodenoscopy 12/2019 Family History Family History Father Acute myocardial infarction Heart disease Other Adopted Social History Social History Smoking packs per day: 0.5 Smoking cigarettes per day: 10.0 Years smoked: 2 Smoking pack-years: 1.00 Smoking status: Former smoker Tobacco type: cigarettes Smoking end date: 11/08/19 Alcohol intake: never Alcohol use details: occasional Substance use: former Substance use type: marijuana Other substance usage details: Occasional Gender identity (if verbalized by the patient): Female Spiritual care concerns: No Exam Narrative: Patient is alert and appears in no acute distress. Vital signs are stable. Patient is afebrile. HEENT : normocephalic. Pupils are midsize equal and reactive to light. Oral mucous membranes are pink and moist. Posterior pharyngeal wall appears to be normal. There is no erythema or exudates noted. Tonsils are not enlarged. Nares are patent. Ears are normal. Neck is supple. Breath sounds are audible bilaterally. Heart tones are regular. No murmurs are appreciated at this time. Abdomen is soft and nontender. There is no CVA tenderness. Skin is warm and dry color is normal. Neurologic exam is grossly normal. Mood and affect are normal. Course Course Emergency Course: Urinalysis is noncontributory. Strep screen and flu swabs are negative. The patient states that she can only take Tylenol and has not taken any today. She has been advised to take that for pain relief. Her back pain most probably seems to be more muscular. And the upper respiratory tract infection symptoms are consistent with mild cold. Patient is going to take symptomatic relief with the [id number] antihistamine and Tylenol as mentioned above. She will follow-up with her primary care provider as needed. She will be discharged home and she is aware of the discharge plans. Discharge Plan Discharge Clinical Impression: Back pain, Upper respiratory tract infection Patient Disposit
[2021-11-04 10:19] LABS: Add Urine Microscopic? YES; Appearance Urine Cloudy (Clear); Bilirubin Urine Negative (Negative); Blood Urine 3+ (Negative); Color Urine Red (Yellow); Glucose Urine UA Negative (Negative); Ketones Urine Negative (Negative); Leukocyte Esterase Ur Trace (Negative); Nitrate Urine Negative (Negative); Protein Urine 1+ (Negative); Specific Grav Ur 1.025 (1.010-1.020); Urobilinogen Urine 0.2 mg/dL (0.2-1.0)
[2021-11-04 10:24] LABS: Bacteria Urine Trace /hpf; RBC Urine >75 /hpf (0-2); Squamous Epithelial Cell Urine Few /hpf (Few); WBC Urine 0-3 /hpf (0-3)
[2021-11-04 10:27] LABS: Influenza Control Valid (Valid)
[2021-11-04 10:48] VITALS: BP 100/76; PULSE 68; RESP 20; O2SAT 99
== END 2021-11-04 10:49 | disposition home or self-care (01) ==
PROVIDERS: Emergency Provider Emergency Medicine; PCP Internal Medicine
DX: M54.9 Dorsalgia, unspecified (principal); J06.9 Acute upper respiratory infection, unspecified
CPT/HCPCS: 81001; 87081; 87804; 87880; 99283

== ENCOUNTER 2021-11-24 10:55 | Outpatient (CLI) | payer OTHER, SELFPAY ==
--- NOTE | ~2021-11-24 | XR_ITS ---
EXAMINATION: XR ankle LT min 3V DATE: 11/24/2021 11:31 INDICATION: Lateral ankle pain and swelling. TECHNIQUE: 4 views of left ankle were obtained. COMPARISON: Left ankle radiographs 01/13/21 FINDINGS: Bone alignment is normal. No fracture. Joint spaces are well maintained. IMPRESSION: 1. No fracture. Reviewed, dictated and finalized at location B. IMPRESSION: 1. No fracture.
[2021-11-24 11:06] LABS: Basophils Absolute Auto 0.04 K/mm3 (0.00-0.10); Basophils Percent Auto 0.4 % (0.0-1.0); Eosinophils Absolute Auto 0.21 K/mm3 (0.02-0.50); Eosinophils Percent Auto 2.3 % (1.0-6.0); Hematocrit 39.3 % (35.0-49.0); Hemoglobin 12.6 g/dL (12.0-15.0); Immature Granulocyte Absolute 0.03 K/mm3 (0.00-0.00); Immature Granulocyte Percent A 0.3 % (0.0-0.0); Lymphocytes Percent Auto 25.9 % (18.0-42.0); Mean Corpuscular HGB Conc 32.1 g/dL (32.0-36.0); Mean Corpuscular Hemoglobin 25.9 pg (27.0-31.0); Mean Corpuscular Volume 80.9 fL (78.0-102.0); Monocytes Absolute Auto 0.38 K/mm3 (0.10-0.90); Monocytes Percent Auto 4.1 % (2.0-11.0); Neutrophils Absolute Auto 6.2 K/mm3 (1.7-7.2); Platelet Count Result 314 K/mm3 (150-420); Red Blood Count 4.86 M/mm3 (4.20-5.40); Red Cell Distribution Width 15.3 % (11.6-14.4); White Blood Count 9.3 K/mm3 (4.8-10.8)
[2021-11-24 11:37] LABS: Alanine Aminotransferase 36 U/L (14-59); Albumin Level 3.7 g/dL (3.4-5.0); Alkaline Phosphatase 80 U/L (46-116); Anion Gap 9 mmol/L (8-16); Aspartate Amino Transferase 16 U/L (15-37); Bilirubin,Total 0.8 mg/dL (0.00-1.00); Blood Urea Nitrogen 12 mg/dL (7-18); CRP 1.7 mg/dL (0.0-0.9); Calcium 8.8 mg/dL (8.5-10.1); Carbon Dioxide 28 mmol/L (21-32); Chloride 104 mmol/L (98-108); Estimated Glomerular Filt Rate > 60; Glucose 110 mg/dL (70-99); Osmolality Calculated 292 mOsm/kg (285-295); Potassium 3.8 mmol/L (3.5-5.1); Sodium 141 mmol/L (136-145); Total Protein 7.8 g/dL (6.4-8.2)
== END 2021-11-24 10:56 | disposition home or self-care (01) ==
PROVIDERS: PCP Internal Medicine; Visit Provider Nurse Practitioner Family
DX: M25.572 Pain in left ankle and joints of left foot (principal); M25.472 Effusion, left ankle
CPT/HCPCS: 36415; 73610; 80053; 84550; 85025; 86140

== ENCOUNTER 2022-03-03 18:28 | Emergency (ER) | payer OTHER, SELFPAY ==
[2022-03-03 18:30] VITALS: BP 135/81; PULSE 116; RESP 20; TEMP 36.9; O2SAT 99
--- NOTE | 2022-03-03 18:36 | ED.NAVMDI ---
HPI - Nausea/Vomiting/Diarrhea General Chief complaint: Nausea/Vomiting/Diarrhea Stated complaint: vomiting Time Seen by Provider: 03/03/22 18:36 Source: patient and RN notes reviewed Mode of arrival: ambulatory Limitations: no limitations History of Present Illness MD elicited complaint: vomiting Pertinent past history: other ( Fourteen weeks ) Description of vomiting: food contents Associated nausea: Yes Associated abdominal pain: Yes Location of pain: epigastric (soreness) Pain consistency: intermittent Severity: mild Quality: aching and dull Exacerbating factors: eating Relieving factors: none Associated symptoms: denies other symptoms Related Data Home Medications Medication Instructions Recorded Confirmed levonorgestrel-ethinyl estradiol 1 tablet PO DAILY 05/03/21 03/03/22 0.1 mg-20 mcg tablet (Vienva) metoclopramide HCl 10 mg tablet 10 mg PO TID PRN Nausea 03/03/22 03/03/22 Allergies Allergy/AdvReac Type Severity Reaction Status Date / Time No Known Allergies Allergy Verified 03/03/22 18:42 Review of Systems Review of Systems: All systems reviewed & are unremarkable except as noted in HPI and below Constitutional: Constitutional: Denies chills and Denies fever(s) Respiratory: Respiratory: Denies cough Gastrointestinal: Gastrointestinal: Denies diarrhea Genitourinary: Genitourinary: Denies nocturia, Denies dysuria and Denies pelvic pain Musculoskeletal: Musculoskeletal: Denies myalgias PMFSH Past Medical History Medical History Asthma Depression GERD (gastroesophageal reflux disease) Hiatal hernia Peptic ulcer disease Surgical History Surgical History H/O esophagogastroduodenoscopy 12/2019 Family History Family History Father Acute myocardial infarction Heart disease Other Adopted Social History Social History Smoking packs per day: 0.5 Smoking cigarettes per day: 10.0 Years smoked: 2 Smoking pack-years: 1.00 Smoking status: Former smoker Tobacco type: cigarettes Smoking end date: 11/08/19 Alcohol intake: never Alcohol use details: occasional Substance use: former Substance use type: marijuana Other substance usage details: Occasional Gender identity (if verbalized by the patient): Female Spiritual care concerns: No Exam Const: General: healthy appearing, no acute distress and alert Nutritional Appearance: well nourished Orientation/consciousness: patient oriented x3 Limitations: no limitations HENMT: Head: normal to inspection Ears: external ears normal Eyes: Conjunctivae: conjunctivae normal Pupils: Equal, round and reactive pupils present EOM: EOMs intact bilaterally Neck: Neck: normal visual inspection Resp: Effort & Inspection: normal respiratory effort Auscultation: clear to auscultation bilaterally Cardio: Rate: regular rate Rhythm: regular rhythm GI: GI Palp: Yes Soft to palpation, Yes Tenderness to palpation present (GI) ( mild in the epigastric area), No Guarding due to palpation present (GI) and No Rebound tenderness present Auscultation: normal bowel sounds Other: heart tones 167 for twin a and 148 for twin B Back/Spine/Pelvis: Cervical Spine: cervical ROM normal Thoracic/Lumbar Spine: thoraco-lumbar ROM normal Skin: General skin exam: normal color Rashes: no rashes Neuro: General: patient oriented x3, moves all extremities, no focal motor deficits and CN's II-XI intact bilaterally Speech: normal speech Gait exam (Neuro): Normal gait present Extrem: General: normal to inspection and no clubbing, cyanosis or edema Psych: Mental Status: mental status grossly normal Affect: normal affect Attitude: cooperative Course Course Emergency Course: patient significantly improved after
[2022-03-03] MEDS: PROMETHAZINE HCL 25 MG/ML AMPUL IM (18:56)
--- NOTE | 2022-03-03 19:07 | PC.NURSE ---
Report recieved from MATHIEU Richard RN
== END 2022-03-03 19:39 | disposition home or self-care (01) ==
PROVIDERS: Emergency Provider Emergency Medicine; PCP Internal Medicine
DX: R11.10 Vomiting, unspecified (principal); Z33.1 Pregnant state, incidental
CPT/HCPCS: 96372; 99283; J2550

== ENCOUNTER 2022-06-06 04:20 | Observation (INO) | payer OTHER, SELFPAY ==
[2022-06-06 04:49] VITALS: BP 120/63; PULSE 89
[2022-06-06 04:58] VITALS: BMI 32.3
--- NOTE | 2022-06-06 04:58 | OBADM ---
This patient, Terra Pineda, admitted to the OB room OB Post 117 for observation. Patient/family oriented to hospital policies and general routines including ID bracelet, bed and alarms, visiting hours, pain management, procedures, bathroom and other care routines, personal items, smoking policy, room service/diet, and visiting hours. Patient/Family are encouraged to report perceived risks to care and to ask questions if they do not understand what they are told or what they should do.
[2022-06-06 04:59] LABS: Appearance Urine Clear (Clear); Bilirubin Urine 1+ (Negative); Blood Urine Negative (Negative); Color Urine Yellow (Yellow); Glucose Urine UA Negative (Negative); Ketones Urine 4+ mg/dL (Negative); Leukocyte Esterase Ur Negative LEU/UL (Negative); Nitrate Urine Negative (Negative); Protein Urine 1+ mg/dL (Negative); Specific Grav Ur >= 1.030 (1.001-1.035)
[2022-06-06 05:29] LABS: Bacteria Urine Trace /hpf; Mucus Urine Heavy /lpf; Squamous Epithelial Cell Urine Many /hpf (Few)
[2022-06-06 05:41] LABS: Add Urine Microscopic? YES
--- NOTE | 2022-06-10 07:45 | P.PNOB_ITS ---
OB - Triage/Final Diagnosis Visit Information Reason for evaluation: threatened labor Comments/Additional reasons for admission: I have assessed the risk for this patient, Terra Pineda, and determined that she would benefit from observation care. Evaluation Laboratory results: Laboratory Tests 06/06/22 04:48 Urine Color Yellow Urine Appearance Clear Urine pH 6.0 Ur Specific [place] >= 1.030 Urine Protein 1+ H Urine Glucose (UA) Negative Urine Ketones 4+ H Ur Blood (Man) Negative Urine Nitrate Negative Urine Bilirubin 1+ H Urine Urobilinogen 1.0 Leukocyte Esterase Rfl Negative Urine RBC 6-10 H Urine WBC 4-6 H Ur Squamous Epith Cells Many H Urine Bacteria Trace Urine Mucus Heavy H
== END 2022-06-06 05:55 | disposition home or self-care (01) ==
PROVIDERS: Admitting Provider Obstetrics & Gynecology; PCP Internal Medicine; Visit Provider Obstetrics & Gynecology
DX: O47.02 False labor before 37 completed weeks of gestation, second trimester (principal); Z3A.27 27 weeks gestation of pregnancy
CPT/HCPCS: 81001; G0378; G0379

== ENCOUNTER 2022-06-24 11:52 | Outpatient (CLI) | payer OTHER, SELFPAY ==
[2022-06-24 12:09] LABS: Hematocrit 29.2 % (35.0-49.0); Hemoglobin 9.1 g/dL (12.0-15.0); Mean Corpuscular HGB Conc 31.2 g/dL (32.0-36.0); Mean Corpuscular Hemoglobin 23.8 pg (27.0-31.0); Mean Corpuscular Volume 76.4 fL (78.0-102.0); Mean Platelet Volume 8.7 fl (9.2-11.8); Platelet Count Result 321 K/mm3 (150-420); Red Blood Count 3.82 M/mm3 (4.20-5.40); Red Cell Distribution Width 15.7 % (11.6-14.4); White Blood Count 9.4 K/mm3 (4.8-10.8)
[2022-06-24 12:25] LABS: Band Neutrophils Percent 0 % (0-6); Eosinophils Absolute Manual 0.18 K/mm3 (0.02-0.5); Eosinophils Percent Manual 2 % (1-6); Lymphocytes Absolute Manual 1.88 K/mm3 (1.1-4.5); Lymphocytes Percent Manual 20 % (18-44); Metamyelocytes Percent 2 %; Monocytes Absolute Manual 0.56 K/mm3 (0.1-0.90); Monocytes Percent Manual 6 % (3-9); Neutrophils Absolute Manual 6.58 K/mm3 (1.7-7.2); Neutrophils Percent Manual 70 % (46-73); Platelet Estimate Adequate (Adequate); Total Cells Counted 100
[2022-06-24 12:36] LABS: Strep Group A RT-PCR Not Detected (Negative)
[2022-06-24 12:45] LABS: Influenza A QL RT-PCR Negative (Negative); Influenza B QL RT-PCR Negative (Negative); SARS-CoV-2 RNA PCR Negative (Negative)
[2022-06-24 12:50] LABS: RSV RNA, RT-PCR Negative (Negative)
[2022-06-24 12:55] LABS: Basophils Absolute Auto 0.03 K/mm3 (0.00-0.10); Basophils Percent Auto 0.3 % (0.0-1.0); Eosinophils Absolute Auto 0.25 K/mm3 (0.02-0.50); Eosinophils Percent Auto 2.6 % (1.0-6.0); Immature Granulocyte Absolute 0.43 K/mm3 (0.00-0.00); Immature Granulocyte Percent A 4.5 % (0.0-0.0); Immature Reticulocyte Fraction 46.6 % (2.0-16.52); Lymphocytes Absolute Auto 1.39 K/mm3 (1.10-4.50); Lymphocytes Percent Auto 14.6 % (18.0-42.0); Monocytes Absolute Auto 0.46 K/mm3 (0.10-0.90); Monocytes Percent Auto 4.8 % (2.0-11.0); Neutrophils Percent Auto 73.2 % (50.0-70.0); Reticulocyte Hemoglobin Conten 25.6 pg (28.0-35.0); Reticulocyte Percent 2.52 % (0.50-1.50)
[2022-06-24 13:08] LABS: Ferritin 11 ng/mL (8-252); Iron 26 ug/dL (50-170)
== END 2022-06-24 11:53 | disposition home or self-care (01) ==
LOC: CHSLAB 11:54
PROVIDERS: PCP Internal Medicine; Visit Provider Internal Medicine
DX: J06.9 Acute upper respiratory infection, unspecified (principal); Z20.822 Contact with and (suspected) exposure to COVID-19; D64.9 Anemia, unspecified
CPT/HCPCS: 36415; 82728; 83540; 85025; 85046; 87637; 87651

== ENCOUNTER 2022-07-15 11:58 | Observation (INO) | payer OTHER, SELFPAY ==
[2022-07-15 13:00] VITALS: BMI 40.4
--- NOTE | 2022-07-15 13:00 | OBADM ---
This patient, eTrra Pineda, admitted to the OB room 115 for observation. Patient/family oriented to hospital policies and general routines including ID bracelet, bed and alarms, visiting hours, pain management, procedures, bathroom and other care routines, personal items, smoking policy, room service/diet, and visiting hours. Patient/Family are encouraged to report perceived risks to care and to ask questions if they do not understand what they are told or what they should do. See OBIX for further documentation.
[2022-07-15 14:15] VITALS: BP 121/68; PULSE 87; TEMP 36.4
[2022-07-15] MEDS: NIFEdipine 10 MG CAPSULE PO (14:15)
[2022-07-15 15:11] VITALS: BP 114/63; PULSE 104
--- NOTE | 2022-07-15 15:29 | PM.OBTRLD ---
OB - Triage/Final Diagnosis Visit Information Date of evaluation: 07/15/22 Reason for evaluation: threatened labor and other (twins) Comments/Additional reasons for admission: I have assessed the risk for this patient, Terra Pineda, and determined that she would benefit from observation care. Evaluation Vital signs: Vital Signs - 24 hr 07/15/22 14:15 07/15/22 15:11 Pulse Rate 87 104 H Blood Pressure 121/68 114/63
[2022-07-15 15:36] LABS: Appearance Urine Clear (Clear); Bilirubin Urine Negative (Negative); Blood Urine Negative (Negative); Color Urine Yellow (Yellow); Glucose Urine UA Negative (Negative); Ketones Urine Negative (Negative); Leukocyte Esterase Ur Negative LEU/UL (Negative); Nitrate Urine Negative (Negative); Protein Urine Negative (Negative); Urobilinogen Urine 0.2 mg/dL (<2.0); pH Urine 6.5 (5.0-9.0)
[2022-07-15 15:48] LABS: Add Urine Microscopic? NO
[2022-07-15 16:00] VITALS: BP 125/62; PULSE 98
[2022-07-15 16:08] LABS: Fetal Fibronectin Negative
== END 2022-07-15 16:25 | disposition home or self-care (01) ==
PROVIDERS: Admitting Provider Obstetrics & Gynecology; PCP Internal Medicine; Visit Provider Obstetrics & Gynecology
DX: O47.03 False labor before 37 completed weeks of gestation, third trimester (principal); O30.003 Twin pregnancy, unspecified number of placenta and unspecified number of amniotic sacs, third trimester; Z3A.32 32 weeks gestation of pregnancy
CPT/HCPCS: 81003; 82731; A9270; G0378; G0379

== ENCOUNTER 2022-08-12 12:26 | Outpatient (RCR) | payer OTHER, SELFPAY ==
[2022-06-19 16:06] VITALS: BP 119/69; PULSE 81
[2022-07-24 12:51] VITALS: BP 120/71; PULSE 103
[2022-07-29 13:12] VITALS: BP 110/64; PULSE 89
[2022-08-05 11:07] VITALS: BP 117/70; PULSE 89
[2022-08-12 12:45] VITALS: BP 114/68; PULSE 89
[2022-08-12 13:00] VITALS: BP 115/67; PULSE 90
[2022-08-12 13:21] VITALS: BP 111/71; PULSE 90
== END 2022-09-11 12:49 | disposition home or self-care (01) ==
LOC: ANHOBOP 12:26
PROVIDERS: PCP Internal Medicine; Visit Provider Obstetrics & Gynecology
DX: O36.8130 Decreased fetal movements, third trimester, not applicable or unspecified (principal); Z3A.29 29 weeks gestation of pregnancy; O30.003 Twin pregnancy, unspecified number of placenta and unspecified number of amniotic sacs, third trimester; Z3A.34 34 weeks gestation of pregnancy; Z3A.35 35 weeks gestation of pregnancy; Z3A.36 36 weeks gestation of pregnancy
CPT/HCPCS: 59025

== ENCOUNTER 2022-08-15 17:29 | Observation (INO) | payer OTHER, SELFPAY ==
[2022-08-15 20:32] VITALS: BMI 37.3
--- NOTE | 2022-08-15 20:32 | OBADM ---
This patient, Terra Pineda, admitted to the OB room Labor/Delivery/Recovery 103 for observation. Patient/family oriented to hospital policies and general routines including ID bracelet, bed and alarms, visiting hours, pain management, procedures, bathroom and other care routines, personal items, smoking policy, room service/diet, and visiting hours. Patient/Family are encouraged to report perceived risks to care and to ask questions if they do not understand what they are told or what they should do.
--- NOTE | 2022-08-19 14:19 | PM.OBTRLD ---
OB - Triage/Final Diagnosis Visit Information Comments/Additional reasons for admission: I have assessed the risk for this patient, Terra Pineda, and determined that she would benefit from observation care. Final Diagnosis (1) False labor: Code(s): O47.9 - False labor, unspecified Status: Acute
== END 2022-08-15 21:07 | disposition home or self-care (01) ==
PROVIDERS: Admitting Provider Obstetrics & Gynecology; PCP Internal Medicine; Visit Provider Obstetrics & Gynecology
DX: O47.03 False labor before 37 completed weeks of gestation, third trimester (principal); Z3A.37 37 weeks gestation of pregnancy
CPT/HCPCS: G0378; G0379

== ENCOUNTER 2022-08-17 00:17 | Inpatient (IN) | payer OTHER, SELFPAY ==
[2022-08-17] VITALS (99 sets, daily range): BP systolic 63–129; BP diastolic 39–87; PULSE 56–110; RESP 16–18; TEMP 36.4–37.6; O2SAT 96–100; BMI 37.3
--- NOTE | 2022-08-17 00:17 | LDADM ---
This patient, Terra Pineda, was admitted to Labor/Delivery/Recovery 102 on 08/17/22 at 00:17. Plans for labor, pain management and were discussed with patient. Patient/family oriented to hospital policies and general routines including ID bracelet, bed and alarms, visiting hours, pain management, procedures, bathroom and other care routines, personal items, smoking policy, room service/diet and guest tray routines, infant security routines, and visiting hours. Patient/Family are encouraged to report perceived risks to care and to ask questions if they do not understand what they are told or what they should do. See OBIX for further documentation.
[2022-08-17 03:38] LABS: Basophils Percent Auto 0.4 % (0.2-1.2); Eosinophils Absolute Auto 0.1 K/mm3 (0-0.3); Eosinophils Percent Auto 1.7 % (0-4.4); Hematocrit 38.2 % (37.0-47.0); Hemoglobin 12.3 g/dL (12.0-15.0); Immature Granulocyte Absolute 0.13 K/mm3 (0.00-0.031); Immature Granulocyte Percent A 1.7 % (0-0.5); Lymphocytes Absolute Auto 1.98 K/mm3 (0.9-3.2); Lymphocytes Percent Auto 26.3 % (18.3-44.2); Mean Corpuscular HGB Conc 32.2 g/dl (32-36); Mean Corpuscular Hemoglobin 25.8 pg (26-34); Mean Corpuscular Volume 80.3 fl (80-100); Mean Platelet Volume 9.1 fl (7.4-10.4); Monocytes Absolute Auto 0.4 K/mm3 (0.1-0.6); Neutrophils Absolute Auto 4.9 K/mm3 (1.3-6.7); Neutrophils Percent Auto 64.9 % (45.5-73.1); Platelet Count Result 227 k/mm3 (150-375); Red Blood Count 4.76 M/mm3 (4.2-5.4); Red Cell Distribution Width 23.2 % (11.5-14.5); White Blood Count 7.5 K/mm3 (4.5-10.0)
[2022-08-17 04:14] LABS: Microcytosis 1+ (NORMAL); Platelet Estimate Adequate (Adequate)
[2022-08-17 04:45] LABS: Schistocytes None Seen (NORMAL)
[2022-08-17] MEDS: LACTATED RINGERS 1,000 ML 125 ML IV CONT ×2 (06:18→07:22)
--- NOTE | 2022-08-17 07:09 | WPDANESEPP ---
Anes - Eval Pre Procedure Procedure: Labor Epidural Date/Time: 08/17/22 07:09 Surgeon: Sulma Coffey Preop Diagnosis: Pain during labor Pre Op Diagnosis: Labor Patient Data Age: 26 Gender: F Height: 1.68 m Weight: 105 kg Last Vital Signs Temp 36.8 C 08/17/22 05:30 Pulse 83 08/17/22 06:30 Resp 17 08/17/22 05:30 BP 113/72 08/17/22 06:30 O2 Del Method Room Air 08/17/22 03:18 Allergies Allergy/AdvReac Type Severity Reaction Status Date / Time No Known Allergies Allergy Verified 08/17/22 03:20 Home Medications Medication Instructions Recorded Confirmed Type prenat.vits,violet,sbg-cqht-efemm 1 tablet PO DAILY 06/06/22 08/17/22 History ergocalciferol (vitamin D2) 1,250 1,250 mcg PO WEEKLY 07/15/22 08/17/22 History mcg (50,000 unit) capsule (Vitamin D2) ferrous sulfate 325 mg (65 mg 325 mg PO DAILY 07/15/22 08/17/22 History iron) tablet Laboratory Tests 08/17/22 08/17/22 02:47 02:47 WBC 7.5 K/mm3 K/mm3 (4.5-10.0) RBC 4.76 M/mm3 M/mm3 (4.2-5.4) Hgb 12.3 g/dL D g/dL (12.0-15.0) Hct 38.2 % % (37.0-47.0) MCV 80.3 fl fl (80-100) MCH 25.8 pg L pg (26-34) MCHC 32.2 g/dl g/dl (32-36) RDW 23.2 % H % (11.5-14.5) Plt Count 227 k/mm3 k/mm3 (150-375) MPV 9.1 fl fl (7.4-10.4) Immature Gran % (Auto) 1.7 % H % (0-0.5) Neut % (Auto) 64.9 % % (45.5-73.1) Lymph % (Auto) 26.3 % % (18.3-44.2) Emanuel % (Auto) 5.0 % % (2.6-8.5) Eos % (Auto) 1.7 % % (0-4.4) Baso % (Auto) 0.4 % % (0.2-1.2) Lymph # (Auto) 1.98 K/mm3 K/mm3 (0.9-3.2) Emanuel # (Auto) 0.4 K/mm3 K/mm3 (0.1-0.6) Eos # (Auto) 0.1 K/mm3 K/mm3 (0-0.3) Baso # (Auto) 0.0 K/mm3 K/mm3 (0.0-0.1) Abs Immat Gran (auto) 0.13 K/mm3 H K/mm3 (0.00-0.031) Absolute Neuts (auto) 4.9 K/mm3 K/mm3 (1.3-6.7) Absolute Nucleated RBC 0.0 K/mm3 K/mm3 (0.0-0.012) Nucleated RBC % 0.0 % % (0.0-0.2) Platelet Estimate Adequate (Adequate) Microcytosis 1+ (NORMAL) Schistocytes None seen (NORMAL) RPR Pending Patient hx anesthesia problems: none Family hx anesthesia problems: none Results Review: All pre-operative results and documents have been reviewed as part of the pre-operative evaluation. FOR[facility], [facility] Past Medical History Medical History Asthma Depression GERD (gastroesophageal reflux disease) Hiatal hernia Peptic ulcer disease Surgical History Surgical History H/O esophagogastroduodenoscopy 12/2019 Family History Family History Father Acute myocardial infarction Heart disease Other Adopted Social History Social History Smoking packs per day: 0.5 Smoking cigarettes per day: 10.0 Years smoked: 2 Smoking pack-years: 1.00 Smoking status: Former smoker Tobacco type: cigarettes Smoking end date: 11/08/19 Alcohol intake: never Alcohol use details: occasional Substance use: never Substance use type: marijuana Other substance usage details: Occasional Lack of Transportation: No Lack of Food: Never True Current Housing: I Have Housing Concerned About Future Housing: No Difficulty Paying Gas/Electric Bills: No Difficulty Paying for Meds: No Currently Unemployed: No Education: High School Diploma/GED Difficulty w/ Childcare or Family Care: No Gender identity (if verbalized by the patient): Female Spiritual care concerns: No Exam Day of Procedure 08/17/22 07:09 Patient weight: overweight Neurological: alert and oriented
--- NOTE | 2022-08-17 07:44 | PM.IMHP ---
H&P: HPI History of Present Illness Date/Time: 08/17/22 07:44 Chief Complaint: Labor at term with twins Narrative: this is a 26-year-old 2 para 1 with diet diet who is admitted in active labor. First baby is vertex the 2nd was transverse PMFSH Past Medical History Medical History Asthma Depression GERD (gastroesophageal reflux disease) Hiatal hernia Peptic ulcer disease Surgical History Surgical History H/O esophagogastroduodenoscopy 12/2019 Family History Family History Father Acute myocardial infarction Heart disease Other Adopted Social History Social History Smoking packs per day: 0.5 Smoking cigarettes per day: 10.0 Years smoked: 2 Smoking pack-years: 1.00 Smoking status: Former smoker Tobacco type: cigarettes Smoking end date: 11/08/19 Alcohol intake: never Alcohol use details: occasional Substance use: never Substance use type: marijuana Other substance usage details: Occasional Lack of Transportation: No Lack of Food: Never True Current Housing: I Have Housing Concerned About Future Housing: No Difficulty Paying Gas/Electric Bills: No Difficulty Paying for Meds: No Currently Unemployed: No Education: High School Diploma/GED Difficulty w/ Childcare or Family Care: No Gender identity (if verbalized by the patient): Female Spiritual care concerns: No Meds Home Medications and Allergies Home Medications Medication Instructions Recorded Confirmed Type prenat.vits,violet,dkr-vqia-ngrvo 1 tablet PO DAILY 06/06/22 08/17/22 History ergocalciferol (vitamin D2) 1,250 1,250 mcg PO WEEKLY 07/15/22 08/17/22 History mcg (50,000 unit) capsule (Vitamin D2) ferrous sulfate 325 mg (65 mg 325 mg PO DAILY 07/15/22 08/17/22 History iron) tablet Allergies Allergy/AdvReac Type Severity Reaction Status Date / Time No Known Allergies Allergy Verified 08/17/22 03:20 Vital Signs Vital Signs - 24 hr 08/17/22 03:26 08/17/22 03:30 08/17/22 05:16 Temperature 97.9 F Pulse Rate 83 82 Respiratory Rate 18 Blood Pressure 115/63 104/51 L Pulse Oximetry Oxygen Delivery 08/17/22 05:30 08/17/22 06:00 08/17/22 06:30 Temperature 98.2 F Pulse Rate 80 91 83 Respiratory Rate 17 Blood Pressure 116/62 108/82 113/72 Pulse Oximetry Oxygen Delivery 08/17/22 07:17 08/17/22 07:20 08/17/22 07:22 Temperature Pulse Rate 80 75 Respiratory Rate Blood Pressure 128/72 129/66 Pulse Oximetry 97 99 Oxygen Delivery 08/17/22 07:27 08/17/22 07:28 08/17/22 07:29 Temperature Pulse Rate 81 Respiratory Rate Blood Pressure 117/61 Pulse Oximetry 98 99 Oxygen Delivery 08/17/22 07:30 08/17/22 07:34 08/17/22 07:36 Temperature Pulse Rate 71 76 Respiratory Rate Blood Pressure 121/76 118/61 Pulse Oximetry 99 99 Oxygen Delivery 08/17/22 07:37 08/17/22 07:39 08/17/22 07:41 Temperature Pulse Rate 76 76 Respiratory Rate Blood Pressure 114/67 116/64 Pulse Oximetry 98 Oxygen Delivery 08/17/22 07:42 08/17/22 03:18 Temperature Pulse Rate 77 Respiratory Rate Blood Pressure 116/67 Pulse Oximetry Oxygen Delivery Room Air Exam Const: General: cooperative, healthy appearing and comfortable Nutritional Appearance: average body habitus Orientation/consciousness: oriented to person, oriented to place and oriented to time HENMT: Head: normal to inspection Resp: Effort & Inspection: normal respiratory effort Cardio: Rate: regular rate Rhythm: regular rhythm Heart sounds: S1 normal heart sound present and S2 normal heart sound present GI: Inspection: normal to inspection ( gravid some uterus) and obesity :
[2022-08-17 09:21] LABS: Rapid Plasma Reagin Non-Reactive (NonReactive)
[2022-08-17] MEDS: OXYTOCIN 30 UNITS/NS 500 ML 30 UNITS/500 ML BAG IV CONT (11:32)
--- NOTE | 2022-08-17 11:58 | PM.OBPRVD ---
OB - Delivery Note Procedure Delivery date: 08/17/22 Events: Multiple Gestation Induction method: None Delivery augmentation: Pitocin Delivery monitor: External FHT Route of delivery: Episiotomy description: None Laceration Description: None Specimen: No Quantitative Blood Loss (ml): 360 Anesthesia type: Epidural Disposition: Floor Narrative: Twin B delivered breech in the mckenzie breech position. The arms were swept medially there was a nuchal arm noted in the left arm appeared to be moving normally. Blood loss for the entire procedure was 360cc. The BA 0.8lb with Apgars 9 and 9. Baby B was breech 7lb 9oz with Apgars of 5 and 8 [place] Baby Date of : 08/17/22 Weeks of gestation at delivery: 37 gender: Male Weight (pounds): 8 Weight (ounces): 0 presentation: vertex position: Right Occiput Anterior Placenta delivery description: Spontaneous Cord Vessel Description: 3 Vessels score one minute: 9 score five minutes: 9
[2022-08-17] MEDS: METHYLERGONOVINE MALEATE 0.2 MG/ML VIAL IM (12:10)
[2022-08-17] MEDS: OXYTOCIN 30 UNITS/NS 500 ML 30 UNITS/500 ML BAG 125 UNITS IV CONT (12:24)
[2022-08-17] MEDS: IBUPROFEN 600 MG TABLET PO ×2 (16:24→22:32)
--- NOTE | 2022-08-17 17:06 | OBPPTRN ---
1455-Patient transferred to post room #277 via wheelchair. Support person present. Oriented to unit, room, information board, rooming in, admission packet and security measures. Patient verbalizes understanding.
--- NOTE | 2022-08-17 18:48 | PC.NURSE ---
1500-Spoke with mother regarding pumping to stimulate breasts for milk production since babies were sleepy/reluctant at feedings. Mother stated that she brought her pump with her and would have significant other bring in from car.
[2022-08-18] MEDS: ACETAMINOPHEN 325 MG TABLET 650 MG PO ×3 (04:20→16:25)
[2022-08-18] MEDS: IBUPROFEN 600 MG TABLET PO ×3 (04:20→16:26)
[2022-08-18 04:37] LABS: Hematocrit 36.4 % (37.0-47.0); Hemoglobin 11.7 g/dL (12.0-15.0)
[2022-08-18 04:45] VITALS: BP 126/80; PULSE 67; RESP 16; TEMP 36.7
--- NOTE | 2022-08-18 07:36 | WPDANLDPN2 ---
Anes-Prog Note L&D Date/Time: 08/18/22 07:36 Comfortable throughout: labor and delivery Neuraxial method: epidural Epidural/Spinal procedure site: clean & non-tender Neuro status: Neuro function grossly intact. Cardiovascular status: normal Respiratory status: normal Airway patency: baseline Mental status: baseline Post-Op hydration status: normal Vital Signs: Last Vital Signs Temp 36.7 C 08/18/22 04:45 Pulse 67 08/18/22 04:45 Resp 16 08/18/22 04:45 BP 126/80 08/18/22 04:45 Pulse Ox 100 08/17/22 15:05 O2 Del Method Room Air 08/18/22 04:43 Pain score (VAS): 3/10 I/O: Intake & Output 08/17/22 08/17/22 08/18/22 15:59 23:59 07:59 Intake Total 1500 480 Output Total 1380 Balance 120 480 Post-procedural complaints: none Patient feedback: Patient satisfied with anesthetic care.
[2022-08-18 07:40] VITALS: BP 110/71; PULSE 74; RESP 18; TEMP 36.7; O2SAT 99
--- NOTE | 2022-08-18 07:42 | PM.OBPNVD ---
OB - PN: Subj Subjective Date/time seen: 08/18/22 07:42 Patient comments: no complaints and pain well controlled baby status: doing well OB - PN: Obj Data Labs 08/18/22 04:18 Labs: Laboratory Results - last 24 hr 08/17/22 08/18/22 02:47 04:18 Hgb 11.7 L Hct 36.4 L RPR Non-reactive OB - PN A/P Plan day: 1 Plan: routine care Time Spent With Patient Time: Total time spent is greater than 50% in coordination of care (as documented) at patient's floor/unit and/or counseling patient: Time with patient: less than 15 minutes Exam Const: General: cooperative, healthy appearing, comfortable and overweight Orientation/consciousness: oriented to person, oriented to place and oriented to time GI: Inspection: normal to inspection (Fundus firm below umbilicus)
--- NOTE | 2022-08-18 07:43 | PM.DS ---
DS: Admitting Diagnosis Discharge Date 08/19/2022 Admitting Diagnosis Twin at term DS: Discharge Diagnosis Discharge Diagnosis (1) Twin : Code(s): O30.009 - Twin , unspecified number of placenta and unspecified number of amniotic sacs, unspecified trimester Status: Acute DS: Summary Hospital Course Reason for hospitalization: Active labor Hospital Course: A 26-year-old multiparous patient was admitted at term with twins. She underwent spontaneous vaginal delivery of both twins the 1st vertex 2nd breech. Her 48hour case was unremarkable. She remained afebrile. She was up, on regular diet, ambulating, breast-feeding, general without complaints. Time Spent with Patient Time attestation: Total time spent providing and/or coordinating discharge services: DS: Data Data Completed and Pending Pending studies at discharge: Pending at discharge 08/17/22 14:28 Surgical [PTH] Routine Labs on day of discharge: Labs from last 24 hours 08/18/22 08/17/22 04:18 02:47 Hgb 11.7 L Hct 36.4 L RPR Non-reactive Discharge Plan Discharge Attending physician on discharge: Jared Mccarty Discharging Clinician: Jared Mccarty Patient Disposition: Home, Self-Care Activity: may shower and pelvic rest Diet: heart healthy Patient Instructions: Antibiotic Form Stand Alone Forms: General Discharge Information Follow-up/Referrals: Jared Mccarty MD [Physician] - Discharge Medications: Continued prenat.vits,violet,[id number] Tablet 1 tablet PO DAILY ferrous sulfate 325 mg (65 mg iron) Tablet 325 mg PO DAILY ergocalciferol (vitamin D2) [Vitamin D2] 1,250 mcg (50,000 unit) Capsule 1,250 mcg PO WEEKLY Date of admission: 08/17/22 00:17 Primary Care Provider: Wyatt Fragoso Admitting Provider: Jared Mccarty Attending physician on admission: Jared Mccarty Condition: Stable
[2022-08-18] MEDS: MULTIVIT/MIN/PREN/FOL AC/IRON TABLET 1 TAB PO (08:48)
[2022-08-18] MEDS: DOCUSATE SODIUM 100 MG CAPSULE PO ×2 (08:48→16:22)
[2022-08-18] MEDS: LANOLIN (LANSINOH) 7.5 GM CREAM 1 APPLIC TOPICAL (08:55)
--- NOTE | 2022-08-18 09:20 | PC.NURSE ---
[id number] Introductions were made, then consulted with patient to assess needs related to . Mother led the conversation with her?plans to feed?her infants and the?experience so far. Resources provided for inpatient and outpatient services with the office number on the feeding sheet and mom/baby guide. Mother voiced understanding of information and will call if there is a request for assistance. Primary RN present.
[2022-08-18] MEDS: WITCH HAZEL 40 PADS 1 PAD TOPICAL (16:26)
[2022-08-18] MEDS: BENZOCAINE 20% AER SPR (*SP) 56 GM CAN 1 SPRAY TOPICAL (16:26)
[2022-08-18 19:45] VITALS: BP 127/71; PULSE 83; RESP 18; TEMP 36.9
[2022-08-19] MEDS: ACETAMINOPHEN 325 MG TABLET 650 MG PO ×2 (02:20→09:27)
[2022-08-19] MEDS: IBUPROFEN 600 MG TABLET PO ×2 (02:20→09:27)
--- NOTE | 2022-08-19 07:40 | PM.OBPNVD ---
OB - PN: Subj Subjective Date/time seen: 08/19/22 07:40 Patient comments: no complaints and pain well controlled baby status: doing well and nursing well OB - PN: Obj Data Labs 08/18/22 04:18 OB - PN A/P Plan day: 2 Plan: routine care, discharge home and follow up 6 weeks Time Spent With Patient Time: Total time spent is greater than 50% in coordination of care (as documented) at patient's floor/unit and/or counseling patient: Time with patient: less than 15 minutes Exam Const: General: cooperative, healthy appearing and comfortable Nutritional Appearance: average body habitus Orientation/consciousness: oriented to person, oriented to place and oriented to time HENMT: Head: normal to inspection Cardio: Rate: regular rate Rhythm: regular rhythm Heart sounds: S1 normal heart sound present and S2 normal heart sound present GI: Inspection: normal to inspection (Fundus firm below the umbilicus)
[2022-08-19 08:15] VITALS: BP 123/72; PULSE 73; RESP 18; TEMP 37.2; O2SAT 100
[2022-08-19] MEDS: MULTIVIT/MIN/PREN/FOL AC/IRON TABLET 1 TAB PO (09:28)
[2022-08-19] MEDS: DOCUSATE SODIUM 100 MG CAPSULE PO (09:28)
[2022-08-20 08:41] VITALS: BP 120/81; PULSE 83; RESP 20; TEMP 36.2; O2SAT 99
== END 2022-08-19 14:07 | disposition home or self-care (01) | DRG 560 ==
LOC: ANHLDR 02:49 → ANHOB2 14:59
PROVIDERS: Admitting Provider Obstetrics & Gynecology; PCP Internal Medicine; Visit Provider Obstetrics & Gynecology
DX: O30.043 Twin pregnancy, dichorionic/diamniotic, third trimester (principal); Z37.2 Twins, both liveborn; Z3A.37 37 weeks gestation of pregnancy; O32.1XX2 Maternal care for breech presentation, fetus 2; O36.8332 Maternal care for abnormalities of the fetal heart rate or rhythm, third trimester, fetus 2; O69.82X2 Labor and delivery complicated by other cord entanglement, without compression, fetus 2; O99.62 Diseases of the digestive system complicating childbirth; K21.9 Gastro-esophageal reflux disease without esophagitis; Z23 Encounter for immunization
CPT/HCPCS: 36415; 84112; 85014; 85018; 85025; 86592; 86850; 86900; 86901; 88307; 90471; 90686; A9270; G0008; J2210; J2590; J2795; J7120

== ENCOUNTER 2022-08-21 08:57 | Emergency (ER) | payer OTHER, SELFPAY ==
--- NOTE | ~2022-08-21 | CT_ITS ---
EXAMINATION: CT abdomen pelvis w con INDICATION: abdominal pain TECHNIQUE: Computed tomographic images of the abdomen and pelvis were obtained after the administrati on of 100 cc of Omnipaque 350 intravenous contrast. The dose-length product (DLP) was 1505.95 mGy-cm. Automated exposure control and iterative reconstruction technique were employed. COMPARISON: 02/18/2020 FINDINGS: The lung bases are clear. The heart size is normal. The liver, spleen, pancreas, gallbladde r, and adrenal glands are normal. The kidneys are unremarkable. No pathologically enlarged abdominal or pelvic lymph nodes are identified. There is no free intraperitoneal gas or evidence of bowel obstr uction. The appendix is normal. There is an enlarged, uterus. There is a small amount of f ree fluid in the pelvis. IMPRESSION: 1. appearance to the uterus without acute findings identified. Reviewed, dictated and finalized at location B. HANDLER SORTER
[2022-08-21 08:57] VITALS: BP 140/86; PULSE 65; RESP 18; O2SAT 98
[2022-08-21 09:02] VITALS: BP 140/86; PULSE 70; RESP 16; TEMP 37.2; O2SAT 98
--- NOTE | 2022-08-21 09:04 | ED.ABDPAIN ---
HPI - Abdominal Pain General Chief Complaint: Abdominal Pain Stated Complaint: right abdominal pain Time Seen by Provider: 08/21/22 09:04 Source: patient Mode of arrival: ambulatory Limitations: no limitations History of Present Illness HPI narrative: 26-year-old female delivered twins on 08/17/2022. First was vertex presentation with normal delivery and the 2nd was breech presentation. No complications post delivery. She was discharged from the hospital on 08/19/2022. She presents to the ER with -- right lower quadrant abdominal pain/ Right flank pain. Pain started half an hour prior to coming to the emergency room. No fever or chills. No dysuria or hematuria. The vaginal discharge is bloody and lightening up. No falls smelling discharge. MD elicited complaint: abdominal pain and flank pain Pertinent past history: none ( normal delivery of twins on 08/17/2022) Onset (ago): minute(s) ( started 20 minutes ago.) Pain Consistency: constant Location: R flank Severity: moderate Quality: aching Radiation: none Migration to: no migration Exacerbating factors: nothing Relieving factors: nothing Associated symptoms: denies other symptoms Related Data Patient : No Home Medications Medication Instructions Recorded Confirmed prenat.vits,violet,[id number] 1 tablet PO DAILY 06/06/22 08/21/22 ergocalciferol (vitamin D2) 1,250 1,250 mcg PO WEEKLY 07/15/22 08/21/22 mcg (50,000 unit) capsule (Vitamin D2) ferrous sulfate 325 mg (65 mg 325 mg PO DAILY 07/15/22 08/21/22 iron) tablet Allergies Allergy/AdvReac Type Severity Reaction Status Date / Time No Known Allergies Allergy Verified 08/21/22 09:07 [facility] Past Medical History Medical History Asthma Depression GERD (gastroesophageal reflux disease) Hiatal hernia Peptic ulcer disease Surgical History Surgical History H/O esophagogastroduodenoscopy 12/2019 Family History Family History Father Acute myocardial infarction Heart disease Other Adopted Social History Social History Smoking packs per day: 0.5 Smoking cigarettes per day: 10.0 Years smoked: 2 Smoking pack-years: 1.00 Smoking status: Former smoker Tobacco type: cigarettes Smoking end date: 11/08/19 Alcohol intake: never Alcohol use details: occasional Substance use: never Substance use type: marijuana Other substance usage details: Occasional Lack of Transportation: No Lack of Food: Never True Current Housing: I Have Housing Concerned About Future Housing: No Difficulty Paying Gas/Electric Bills: No Difficulty Paying for Meds: No Currently Unemployed: No Education: High School Diploma/GED Difficulty w/ Childcare or Family Care: No Gender identity (if verbalized by the patient): Female Spiritual care concerns: No Exam Const: General: ill appearing Nutritional Appearance: obese Orientation/consciousness: patient oriented x3 Limitations: no limitations HENMT: Head: normal to inspection Ears: external ears normal Face/Nose/Sinus: Normal external nose present Face and sinus: normal facial exam Mouth: Yes Normal oral and palatal mucosa present Throat: posterior oropharynx normal Eyes: Conjunctivae: conjunctivae normal Pupils: Equal, round and reactive pupils present EOM: EOMs intact bilaterally Direct Ophthalmoscopy: no photophobia Neck: Neck: normal visual inspection, no lymphadenopathy and no meningeal signs Chest: Chest palpation & inspection: normal inspection of the chest Resp: Effort & Inspection: normal respiratory effort Auscultation: clear to auscultation bilaterally Cardio: Rate: regular rate Rhythm: regular rhythm GI: GI Palp: Yes Soft to palpation and Yes Tenderness to palpation p
[2022-08-21] MEDS: LACTATED RINGERS 500 ML 999 ML IV CONT (09:48)
[2022-08-21 09:51] LABS: Add Urine Microscopic? YES; Appearance Urine Slightly Cloudy (Clear); Basophils Absolute Auto 0.02 K/mm3 (0.00-0.10); Basophils Percent Auto 0.3 % (0.0-1.0); Bilirubin Urine Negative (Negative); Blood Urine 3+ (Negative); Color Urine Light Yellow (Yellow); Eosinophils Absolute Auto 0.26 K/mm3 (0.02-0.50); Eosinophils Percent Auto 3.5 % (1.0-6.0); Glucose Urine UA Negative (Negative); Hematocrit 36.1 % (35.0-49.0); Hemoglobin 11.8 g/dL (12.0-15.0); Immature Granulocyte Absolute 0.05 K/mm3 (0.00-0.00); Immature Granulocyte Percent A 0.7 % (0.0-0.0); Ketones Urine Negative (Negative); Leukocyte Esterase Ur 2+ LEU/UL (Negative); Lymphocytes Absolute Auto 2.25 K/mm3 (1.10-4.50); Lymphocytes Percent Auto 30.2 % (18.0-42.0); Mean Corpuscular HGB Conc 32.7 g/dL (32.0-36.0); Mean Corpuscular Hemoglobin 26.3 pg (27.0-31.0); Mean Corpuscular Volume 80.4 fL (78.0-102.0); Mean Platelet Volume 8.8 fl (9.2-11.8); Monocytes Absolute Auto 0.26 K/mm3 (0.10-0.90); Monocytes Percent Auto 3.5 % (2.0-11.0); Neutrophils Absolute Auto 4.6 K/mm3 (1.7-7.2); Neutrophils Percent Auto 61.8 % (50.0-70.0); Nitrate Urine Negative (Negative); Platelet Count Result 232 K/mm3 (150-420); Protein Urine Trace (Negative); Red Blood Count 4.49 M/mm3 (4.20-5.40); Red Cell Distribution Width 22.2 % (11.6-14.4); Specific Grav Ur 1.025 (1.010-1.020); White Blood Count 7.4 K/mm3 (4.8-10.8)
[2022-08-21] MEDS: PROCHLORPERAZINE EDISYLATE 10 MG/2 ML VIAL IV PUSH (09:51)
[2022-08-21] MEDS: MORPHINE SULFATE (*CRX) 2 MG/ML INJ IV PUSH (09:53)
[2022-08-21 09:57] LABS: Bacteria Urine 1+ /hpf; RBC Urine 21-50 /hpf (0-2); Squamous Epithelial Cell Urine Few /hpf (Few); WBC Urine 21-30 /hpf (0-3)
[2022-08-21 10:00] VITALS: BP 131/78; PULSE 61; RESP 14; O2SAT 99
[2022-08-21 10:04] LABS: INR 0.9; Prothrombin Time 10.2 Seconds (9.50-12.10)
[2022-08-21 10:05] LABS: Partial Thromboplastin Time 28.5 SEC (23.90-30.70)
[2022-08-21 10:12] LABS: Lactic Acid Reflex 0.7 mmol/L (0.4-2.0)
[2022-08-21 10:19] LABS: Alanine Aminotransferase 21 U/L (14-59); Albumin Level 2.3 g/dL (3.4-5.0); Alkaline Phosphatase 161 U/L (46-116); Anion Gap 8 mmol/L (8-16); Aspartate Amino Transferase 22 U/L (15-37); Bilirubin,Total 0.6 mg/dL (0.00-1.00); Blood Urea Nitrogen 20 mg/dL (7-18); Calcium 7.8 mg/dL (8.5-10.1); Carbon Dioxide 23 mmol/L (21-32); Chloride 105 mmol/L (98-108); Estimated CRCL calculation 193 ml/min; Estimated Glomerular Filt Rate > 60; Glucose 80 mg/dL (70-99); Lipase 12 U/L (16-77); Osmolality Calculated 283 mOsm/kg (285-295); Potassium 3.6 mmol/L (3.5-5.1); Sodium 136 mmol/L (136-145); Total Protein 6.2 g/dL (6.4-8.2); Troponin I 4.2 ng/L (0.00-60.4)
[2022-08-21 11:00] VITALS: BP 121/87; PULSE 56; RESP 18; O2SAT 99
[2022-08-21 12:00] VITALS: BP 126/92; PULSE 70; RESP 16; O2SAT 100
--- NOTE | 2022-08-21 12:06 | PC.NURSE ---
1100 pt sitting up in cot, talking with male in room. call park in reach 1200 no change, remains with no nausea.
[2022-08-21 12:22] VITALS: BP 122/87; PULSE 63; RESP 20; TEMP 36.8; O2SAT 97
--- NOTE | 2022-08-23 14:02 | PC.NURSE ---
final urine culture reviewed. mixed genital bonny isolated, superficial bacteria, not indicating UTI. no change in care plan
--- NOTE | 2022-08-27 14:41 | PC.NURSE ---
final blood cultures x2 reviewed. no growth after 5 days. no change in plan of care
== END 2022-08-21 12:25 | disposition home or self-care (01) ==
PROVIDERS: Emergency Provider Internal Medicine Critical Care Medicine; PCP Internal Medicine
DX: O90.89 Other complications of the puerperium, not elsewhere classified (principal); R10.31 Right lower quadrant pain; Z87.891 Personal history of nicotine dependence
CPT/HCPCS: 36415; 74177; 80053; 81001; 83605; 83690; 84484; 85025; 85610; 85730; 87040; 87086; 87088; 96361; 96374; 96375; 99284; J0780; J2270; J7120; Q9967

== ENCOUNTER 2022-09-20 06:01 | Emergency (ER) | payer OTHER, SELFPAY ==
--- NOTE | ~2022-09-20 | XR_ITS ---
XR chest 2V DATE: 09/20/2022 06:55 INDICATION: Chest pain, shortness of breath TECHNIQUE: PA and lateral views COMPARISON: 05/05/2021 2 view chest FINDINGS: Normal heart size. No hilar or mediastinal enlargement. The lungs are clear of infiltrate o r consolidation. No pleural effusion or pulmonary vascular congestion or pneumothorax. Included skele jeannie structures are unremarkable. IMPRESSION: No active cardiopulmonary disease Reviewed, dictated and finalized at location A. LOGY TEACHER
--- NOTE | ~2022-09-20 | CT_ITS ---
EXAMINATION: CTA chest PE protocol DATE: 09/20/2022 08:24 INDICATION: Mid chest pain. History of blood clot. Positive d-dimer. TECHNIQUE: Computed tomography angiography (CTA) of the chest was performed with 100 mL Omnipaque-350 intravenous contrast timed to evaluate the pulmonary arteries. Coronal maximum intensity projection 3D-reconstructions were created by the technologist. Automated exposure control and iterative reconst ruction technique were employed. Exam dose: 539.70 mGy-cm total exam DLP. COMPARISON: September 20, 2022 PA and lateral chest 10/12/2019 CT pulmonary scan FINDINGS: There is diagnostic contrast enhancement of the pulmonary arteries and no evidence of pulmo nary embolism. No thoracic aortic aneurysm or dissection. Normal heart size. No pericardial or pleural effusion. No hilar or mediastinal mass lesion or lymphadenopathy. Calcified middle lobe pulmonary granulomas and calcified subcarinal lymph nodes, consistent with old pulmonary granulomatous disease. Included skeletal structures are unremarkable. IMPRESSION: No evidence of pulmonary embolism Reviewed, dictated and finalized at Location A. Reviewed, dictated and finalized at location A. TING CARD WRITER
[2022-09-20 06:02] VITALS: BP 104/60; PULSE 60; RESP 14; TEMP 36.5; O2SAT 99
[2022-09-20 06:08] VITALS: PULSE 63
[2022-09-20 06:30] VITALS: BP 104/65; PULSE 67; RESP 14; O2SAT 100
--- NOTE | 2022-09-20 06:33 | ECG_ITS ---
Measurements Intervals [place] Rate: 58 P: 38 SD: 150 QRS: -8 QRSD: 98 T: -9 QT: 539 QTc: 533 Interpretive Statements SINUS BRADYCARDIA WITH SINUS ARRHYTHMIA VOLTAGE CRITERIA FOR LVH [MEETS CRITERIA IN ONE OF: R(aVL), S(V1), R(V5), R(V5/V6)+S(V1)] QT PROLONGATION NEW LINE NONSPECIFIC T-WAVE CHANGES COMPARED TO ECG 05/05/2021 12:57:42 SINUS BRADYCARDIA NOW PRESENT PROLONGED QT INTERVAL NOW PRESENT Electronically Signed On 09-20-2022 8:42:36 FORMING PRESS OPERATOR by Yeimy Bean M.D.
--- NOTE | 2022-09-20 06:49 | ED.CHESTPAIN ---
HPI - Chest Pain General Chief Complaint: Chest Pain <Delfino Soliman MD - Last Filed: 09/20/22 06:53> Stated Complaint: SOB <Delfino Soliman MD - Last Filed: 09/20/22 06:53> Time Seen by Provider: 09/20/22 07:22 <Delfino Soliman MD - Last Filed: 09/20/22 06:53> Source: patient and family <Delfino Soliman MD - Last Filed: 09/20/22 06:53> Mode of arrival: EMS <Delfino Soliman MD - Last Filed: 09/20/22 06:53> Limitations: no limitations <Delfino Soliman MD - Last Filed: 09/20/22 06:53> History of Present Illness HPI narrative: this is a 27-year-old female that presents via EMS it has chest pain while she was earlier this morning patient states that lasted about an hour and called EMS she was having some mild shortness of breath, the patient does have a history of asthma with no fever chills no nausea or vomiting no abdominal pain no flank pain. Patient states that she has had prior episodes before with history of asthma and history of hiatal hernia. <Delfino Soliman MD - Last Filed: 09/20/22 06:53> MD complaint: chest pain <Delfino Soliman MD - Last Filed: 09/20/22 06:53> Onset (ago): hour(s) <Delfino Soliman MD - Last Filed: 09/20/22 06:53> Timing of current episode: constant <Delfino Soliman MD - Last Filed: 09/20/22 06:53> Prior episodes: Yes <Delfino Soliman MD - Last Filed: 09/20/22 06:53> Onset: during rest <Delfino Soliman MD - Last Filed: 09/20/22 06:53> Pain location: epigastric <Delfino Soliman MD - Last Filed: 09/20/22 06:53> Related Data Home Medications: Home Medications Medication Instructions Recorded Confirmed prenat.vits,violet,[id number] 1 tablet PO DAILY 06/06/22 09/20/22 <Delfino Soliman MD - Last Filed: 09/20/22 06:53> Allergies/Adverse Reactions: Allergies Allergy/AdvReac Type Severity Reaction Status Date / Time No Known Allergies Allergy Verified 09/20/22 06:16 <Delfino Soliman MD - Last Filed: 09/20/22 06:53> Review of Systems Review of Systems: All systems reviewed & are unremarkable except as noted in HPI and below <Delfino Soliman MD - Last Filed: 09/20/22 06:53> [facility] Past Medical History Medical History: Medical History Asthma Depression GERD (gastroesophageal reflux disease) Hiatal hernia Peptic ulcer disease <Delfino Soliman MD - Last Filed: 09/20/22 06:53> Surgical History Surgical History: Surgical History H/O esophagogastroduodenoscopy 12/2019 <eDlfino Soliman MD - Last Filed: 09/20/22 06:53> Family History Family History: Family History Father Acute myocardial infarction Heart disease Other Adopted <Delfino Soliman MD - Last Filed: 09/20/22 06:53> Social History Social History: Social History Smoking packs per day: 0.5 Smoking cigarettes per day: 10.0 Years smoked: 2 Smoking pack-years: 1.00 Smoking status: Former smoker Tobacco type: cigarettes Smoking end date: 11/08/19 Alcohol intake: never Alcohol use details: occasional Substance use: never Substance use type: marijuana Other substance usage details: Occasional Lack of Transportation: No Lack of Food: Never True Current Housing: I Have Housing Concerned About Future Housing: No Difficulty Paying Gas/Electric Bills: No Difficulty Paying for Meds: No Currently Unemployed: No Education: High School Diploma/GED Difficulty w/ Childcare or Family Care: No Living arrangements: with family Occupation/Education: occupation Gender identity (if verbalized by the patient): Female Spiritual care concerns: No <Delfino Soliman MD - Last Filed: 0
[2022-09-20 07:00] VITALS: BP 109/61; PULSE 55; RESP 20; O2SAT 100
[2022-09-20 07:22] LABS: Basophils Absolute Auto 0.02 K/mm3 (0.00-0.10); Basophils Percent Auto 0.2 % (0.0-1.0); Eosinophils Absolute Auto 0.24 K/mm3 (0.02-0.50); Eosinophils Percent Auto 2.6 % (1.0-6.0); Hematocrit 38.4 % (35.0-49.0); Hemoglobin 12.4 g/dL (12.0-15.0); Immature Granulocyte Absolute 0.06 K/mm3 (0.00-0.00); Immature Granulocyte Percent A 0.7 % (0.0-0.0); Lymphocytes Absolute Auto 2.21 K/mm3 (1.10-4.50); Lymphocytes Percent Auto 24.3 % (18.0-42.0); Mean Corpuscular HGB Conc 32.3 g/dL (32.0-36.0); Mean Corpuscular Hemoglobin 27.3 pg (27.0-31.0); Mean Corpuscular Volume 84.4 fL (78.0-102.0); Mean Platelet Volume 9.4 fl (9.2-11.8); Monocytes Absolute Auto 0.34 K/mm3 (0.10-0.90); Monocytes Percent Auto 3.7 % (2.0-11.0); Neutrophils Absolute Auto 6.2 K/mm3 (1.7-7.2); Neutrophils Percent Auto 68.5 % (50.0-70.0); Platelet Count Result 222 K/mm3 (150-420); Red Blood Count 4.55 M/mm3 (4.20-5.40); Red Cell Distribution Width 18.3 % (11.6-14.4); White Blood Count 9.1 K/mm3 (4.8-10.8)
[2022-09-20 07:38] LABS: Alanine Aminotransferase 21 U/L (14-59); Albumin Level 3.2 g/dL (3.4-5.0); Alkaline Phosphatase 107 U/L (46-116); Anion Gap 7 mmol/L (8-16); Aspartate Amino Transferase 16 U/L (15-37); Bilirubin,Total 0.3 mg/dL (0.00-1.00); Blood Urea Nitrogen 7 mg/dL (7-18); Calcium 7.8 mg/dL (8.5-10.1); Carbon Dioxide 29 mmol/L (21-32); Chloride 103 mmol/L (98-108); Estimated CRCL calculation 149 ml/min; Estimated Glomerular Filt Rate > 60; Glucose 102 mg/dL (70-99); Osmolality Calculated 286 mOsm/kg (285-295); Potassium 3.2 mmol/L (3.5-5.1); Sodium 139 mmol/L (136-145); Total Protein 6.6 g/dL (6.4-8.2)
[2022-09-20 07:39] LABS: Troponin I < 4.0 ng/L (0.00-60.4)
[2022-09-20 07:46] LABS: D Dimer 2.84 mg/L (0.19-0.50)
[2022-09-20 07:54] LABS: Add Urine Microscopic? YES; Appearance Urine Clear (Clear); Bilirubin Urine Negative (Negative); Blood Urine 2+ (Negative); Color Urine Light Yellow (Yellow); Glucose Urine UA Negative (Negative); Ketones Urine Negative (Negative); Leukocyte Esterase Ur Trace LEU/UL (Negative); Nitrate Urine Negative (Negative); Protein Urine Negative (Negative); Specific Grav Ur 1.015 (1.010-1.020); Urobilinogen Urine 0.2 mg/dL (0.2-1.0)
[2022-09-20 07:59] LABS: Pregnancy On Board Control Positive; Urine Pregnancy Test Negative
[2022-09-20 08:02] LABS: RBC Urine 0-2 /hpf (0-2); WBC Urine None seen /hpf (0-3)
[2022-09-20 08:03] LABS: Amorphous Sediment Urine Few; Squamous Epithelial Cell Urine Few /hpf (Few)
[2022-09-20 09:10] VITALS: BP 117/68; PULSE 68; RESP 20; TEMP 36.1; O2SAT 97
== END 2022-09-20 09:15 | disposition home or self-care (01) ==
PROVIDERS: Emergency Medicine; Emergency Provider Family Medicine; PCP Internal Medicine
DX: R07.9 Chest pain, unspecified (principal); J45.909 Unspecified asthma, uncomplicated; Z87.891 Personal history of nicotine dependence
CPT/HCPCS: 36415; 71046; 71275; 80053; 81001; 81025; 84484; 85025; 85380; 93005; 99284; Q9967

== ENCOUNTER 2022-10-16 11:25 | Outpatient (CLI) | payer OTHER, SELFPAY ==
[2022-10-16 11:35] LABS: Basophils Absolute Auto 0.03 K/mm3 (0.00-0.10); Basophils Percent Auto 0.4 % (0.0-1.0); Eosinophils Absolute Auto 0.16 K/mm3 (0.02-0.50); Eosinophils Percent Auto 2.1 % (1.0-6.0); Hematocrit 39.6 % (35.0-49.0); Hemoglobin 12.8 g/dL (12.0-15.0); Immature Granulocyte Absolute 0.04 K/mm3 (0.00-0.00); Immature Granulocyte Percent A 0.5 % (0.0-0.0); Lymphocytes Absolute Auto 2.23 K/mm3 (1.10-4.50); Lymphocytes Percent Auto 28.7 % (18.0-42.0); Mean Corpuscular HGB Conc 32.3 g/dL (32.0-36.0); Mean Corpuscular Hemoglobin 27.9 pg (27.0-31.0); Mean Corpuscular Volume 86.3 fL (78.0-102.0); Mean Platelet Volume 9.3 fl (9.2-11.8); Monocytes Absolute Auto 0.29 K/mm3 (0.10-0.90); Monocytes Percent Auto 3.7 % (2.0-11.0); Neutrophils Percent Auto 64.6 % (50.0-70.0); Platelet Count Result 272 K/mm3 (150-420); Red Blood Count 4.59 M/mm3 (4.20-5.40); Red Cell Distribution Width 15.2 % (11.6-14.4); White Blood Count 7.8 K/mm3 (4.8-10.8)
[2022-10-16 12:43] LABS: Alanine Aminotransferase 203 U/L (14-59); Albumin Level 3.5 g/dL (3.4-5.0); Alkaline Phosphatase 141 U/L (46-116); Amylase 37 U/L (25-115); Anion Gap 8 mmol/L (8-16); Aspartate Amino Transferase 126 U/L (15-37); Bilirubin,Total 0.6 mg/dL (0.00-1.00); Blood Urea Nitrogen 16 mg/dL (7-18); Carbon Dioxide 29 mmol/L (21-32); Chloride 106 mmol/L (98-108); Estimated Glomerular Filt Rate > 60; Free T4 Free Thyroxine 0.83 ng/dL (0.76-1.46); Glucose 90 mg/dL (70-99); Lipase 20 U/L (16-77); Magnesium 1.9 mg/dL (1.8-2.4); Osmolality Calculated 297 mOsm/kg (285-295); Potassium 4.5 mmol/L (3.5-5.1); Sodium 143 mmol/L (136-145); Thyroid Stimulating Hormone 0.82 uIU/mL (0.36-3.74); Total Protein 7.1 g/dL (6.4-8.2)
[2022-10-20 19:20] LABS: Vitamin D 25 Hydroxy 20 ng/mL (30-100)
== END 2022-10-16 11:26 | disposition home or self-care (01) ==
LOC: CHSLAB 11:27
PROVIDERS: PCP Internal Medicine; Visit Provider Nurse Practitioner Family
DX: R07.9 Chest pain, unspecified (principal); R10.0 Acute abdomen
CPT/HCPCS: 36415; 80053; 82150; 82306; 83690; 83735; 84439; 84443; 85025

== ENCOUNTER 2022-10-26 10:16 | Outpatient (CLI) | payer OTHER, SELFPAY ==
--- NOTE | ~2022-10-26 | NM_ITS ---
EXAMINATION: NM hepatobiliary w pharm DATE: 10/26/2022 12:56 INDICATION: Right upper quadrant abdominal pain COMPARISON: CT dated 08/21/2022 TECHNIQUE: 5.8 mCi Tc-99m mebrofenin (Choletec) was administered intravenously. Scintigraphic images of the abdomen were obtained for one hour. 1.95 mcg sincalide (Kinevac) was administered by slow int ravenous infusion, and imaging was continued for 30 minutes. Gallbladder ejection fraction was calcul ated by the technologist. FINDINGS: There is normal clearance of radiotracer from the blood pool. There is homogeneous tracer uptake by t he liver. Activity progresses to the gallbladder and bowel. The gallbladder ejection fraction (GBEF) is 83% (normal 10-90%, but most patient with gallbladder dysfunction have GBEF < 35% which does over lap with the normal range). IMPRESSION: 1. Normal hepatobiliary scan. Reviewed, dictated and finalized at location A.
== END 2022-10-26 10:17 | disposition home or self-care (01) ==
LOC: CHSIMG 10:17
PROVIDERS: PCP Internal Medicine; Visit Provider Nurse Practitioner Family
DX: R10.11 Right upper quadrant pain (principal)
CPT/HCPCS: 78227; A9537; J2805

== ENCOUNTER 2022-10-28 10:44 | Outpatient (CLI) | payer OTHER, SELFPAY ==
[2022-10-28 11:31] LABS: Alanine Aminotransferase 29 U/L (14-59); Albumin Level 3.7 g/dL (3.4-5.0); Alkaline Phosphatase 94 U/L (46-116); Anion Gap 9 mmol/L (8-16); Aspartate Amino Transferase 13 U/L (15-37); Bilirubin,Total 0.8 mg/dL (0.00-1.00); Blood Urea Nitrogen 13 mg/dL (7-18); Calcium 8.8 mg/dL (8.5-10.1); Carbon Dioxide 28 mmol/L (21-32); Chloride 106 mmol/L (98-108); Estimated Glomerular Filt Rate > 60; Glucose 96 mg/dL (70-99); Osmolality Calculated 296 mOsm/kg (285-295); Sodium 143 mmol/L (136-145); Total Protein 7.1 g/dL (6.4-8.2)
== END 2022-10-28 10:45 | disposition home or self-care (01) ==
LOC: CHSLAB 10:45
PROVIDERS: PCP Internal Medicine; Visit Provider Internal Medicine
DX: R94.5 Abnormal results of liver function studies (principal)
CPT/HCPCS: 36415; 80053

== ENCOUNTER 2022-12-29 12:00 | Outpatient (CLI) | payer OTHER, SELFPAY ==
[2022-12-29 13:02] LABS: Beta HCG Quantitative < 2.39 mIU/ML
== END 2022-12-29 12:01 | disposition home or self-care (01) ==
PROVIDERS: PCP Internal Medicine; Visit Provider Student in an Organized Health Care Education/Training Program
DX: Z30.49 Encounter for surveillance of other contraceptives (principal)
CPT/HCPCS: 36415; 84702

== ENCOUNTER 2023-01-05 04:52 | Emergency (ER) | payer OTHER, SELFPAY ==
[2023-01-05 05:00] VITALS: BP 100/62; PULSE 58; RESP 20; TEMP 36.1; O2SAT 100
--- NOTE | 2023-01-05 05:11 | ECG_ITS ---
Measurements Intervals [place] Rate: 65 P: 37 [place]: 132 QRS: 3 QRSD: 93 T: -13 QT: 440 QTc: 457 Interpretive Statements SINUS RHYTHM WITH SINUS ARRHYTHMIA NONSPECIFIC ST-T WAVE ABNORMALITY- ANTEROLAT/INF LEADS BASELINE ARTIFACT- I, II, III, AVR, AVL, AVF, V1-V6 BORDERLINE ECG COMPARED TO ECG 09/20/2022 06:43:50 SINUS RHYTHM NOW PRESENT Electronically Signed On 01-05-2023 6:52:30 CDT by Aniceto Carmen D.O.
--- NOTE | 2023-01-05 05:15 | ED.GENADULT ---
HPI - General Adult General Chief complaint: Abdominal Pain Stated complaint: abd pain Time Seen by Provider: 01/05/23 05:04 History of Present Illness HPI narrative: Terra is a 27F with a PMH of asthma, GERD and RUQ pain presented to the ED with pain in her RUQ and anterior chest. The pain is accompanied by diffuse low back pain. It started early this morning while lying in bed and it woke her up. She ate hamburger helper last night. No alleviating or aggravating factors identified. She has had this before and was told that if she had elevated LFTs again she should have her gallbladder removed but she did have a normal HIDA scan on 11/05. Related Data Home Medications Medication Instructions Recorded Confirmed ergocalciferol (vitamin D2) 1,250 1,250 mcg PO DAILY 12/16/22 01/05/23 mcg (50,000 unit) capsule omeprazole 40 mg capsule,delayed 40 mg PO DAILY 12/16/22 01/05/23 release albuterol sulfate 90 mcg/actuation 2 puff inhalation PRN PRN Wheezing 12/30/22 01/05/23 aerosol inhaler etonogestrel 68 mg subdermal 1 implant subdermal ONCE 12/30/22 01/05/23 implant (Nexplanon) Allergies Allergy/AdvReac Type Severity Reaction Status Date / Time No Known Allergies Allergy Verified 01/05/23 05:02 Review of Systems Review of Systems: All systems reviewed & are unremarkable except as noted in HPI and below PMFSH Past Medical History Medical History Asthma Depression Encounter for surveillance of other contraceptives GERD (gastroesophageal reflux disease) Hiatal hernia Peptic ulcer disease Surgical History Surgical History H/O esophagogastroduodenoscopy 12/2019 H/O gynecological procedure 12/30/22 Nexplanon insertion Family History Family History Father Acute myocardial infarction Heart disease Other Adopted Social History Social History Smoking packs per day: 0.5 Smoking cigarettes per day: 10.0 Years smoked: 2 Smoking pack-years: 1.00 Smoking status: Former smoker Tobacco type: cigarettes Smoking end date: 11/08/19 Alcohol intake: never Substance use: never Substance use type: marijuana Other substance usage details: Occasional Lack of Transportation: No Lack of Food: Never True Current Housing: I Have Housing Concerned About Future Housing: No Difficulty Paying Gas/Electric Bills: No Difficulty Paying for Meds: No Currently Unemployed: No Education: High School Diploma/GED Difficulty w/ Childcare or Family Care: No Living arrangements: with family Occupation/Education: occupation Gender identity (if verbalized by the patient): Female Sexual Orientation (if Verbalized by the Patient): Straight or Heterosexual Spiritual care concerns: No Exam Const: General: healthy appearing Nutritional Appearance: well nourished Orientation/consciousness: patient oriented x3 Other: in mild distress HENMT: Head: normal to inspection Ears: external ears normal Face/Nose/Sinus: Normal external nose present Eyes: Conjunctivae: conjunctivae normal Pupils: Equal, round and reactive pupils present EOM: EOMs intact bilaterally Neck: Neck: normal visual inspection Chest: Chest palpation & inspection: normal inspection of the chest Resp: Effort & Inspection: normal respiratory effort, not labored and no retractions Auscultation: wheezes expiratory wheezes Cardio: Rate: regular rate Rhythm: regular rhythm Heart sounds: no murmurs GI: Other: TTP on the RUQ and RLQ as well as epigastric region, but no guarding or rebound tenderness. normal bowel sounds : Other: bilateral CVA tenderness Back/Spine/Pelvis: Other: no midline TTP Skin: General skin exam: normal color Rashes: no rashes Neuro:
[2023-01-05 05:19] LABS: Basophils Absolute Auto 0.05 K/mm3 (0.00-0.10); Basophils Percent Auto 0.5 % (0.0-1.0); Eosinophils Absolute Auto 0.18 K/mm3 (0.02-0.50); Eosinophils Percent Auto 1.7 % (1.0-6.0); Hematocrit 38.6 % (35.0-49.0); Hemoglobin 12.4 g/dL (12.0-15.0); Immature Granulocyte Absolute 0.03 K/mm3 (0.00-0.00); Immature Granulocyte Percent A 0.3 % (0.0-0.0); Lymphocytes Absolute Auto 3.83 K/mm3 (1.10-4.50); Mean Corpuscular HGB Conc 32.1 g/dL (32.0-36.0); Mean Corpuscular Hemoglobin 27.1 pg (27.0-31.0); Mean Corpuscular Volume 84.3 fL (78.0-102.0); Mean Platelet Volume 9.7 fl (9.2-11.8); Monocytes Absolute Auto 0.53 K/mm3 (0.10-0.90); Neutrophils Percent Auto 56.5 % (50.0-70.0); Platelet Count Result 289 K/mm3 (150-420); Red Blood Count 4.58 M/mm3 (4.20-5.40); Red Cell Distribution Width 13.3 % (11.6-14.4); White Blood Count 10.6 K/mm3 (4.8-10.8)
[2023-01-05] MEDS: MORPHINE SULFATE (*CRX) 4 MG/ML INJ IV PUSH (05:20)
[2023-01-05 05:26] LABS: Prothrombin Time 10.6 Seconds (9.50-12.10)
[2023-01-05] MEDS: IPRATROPIUM 0.5 MG/ALBUTEROL SULFATE 2.5 MG AMPUL.NEB 3 ML INHALATION (05:28)
[2023-01-05 05:29] VITALS: PULSE 57; RESP 20; O2SAT 100
[2023-01-05 05:31] LABS: Alanine Aminotransferase 37 U/L (14-59); Albumin Level 3.7 g/dL (3.4-5.0); Alkaline Phosphatase 86 U/L (46-116); Anion Gap 11 mmol/L (8-16); Aspartate Amino Transferase 24 U/L (15-37); Bilirubin,Total 0.5 mg/dL (0.00-1.00); Blood Urea Nitrogen 15 mg/dL (7-18); Calcium 8.1 mg/dL (8.5-10.1); Carbon Dioxide 23 mmol/L (21-32); Chloride 105 mmol/L (98-108); Estimated CRCL calculation 170 ml/min; Estimated Glomerular Filt Rate > 60; Glucose 136 mg/dL (70-99); Lactic Acid Reflex 0.9 mmol/L (0.4-2.0); Lipase 19 U/L (16-77); Osmolality Calculated 290 mOsm/kg (285-295); Potassium 3.1 mmol/L (3.5-5.1); Sodium 139 mmol/L (136-145)
--- NOTE | 2023-01-05 05:37 | PC.NURSE ---
Pt ambulatory with steady gait to restroom for needed UA. PT reports pain improved to 5/10. Father remains at bedside.
--- NOTE | 2023-01-05 05:43 | PC.NURSE ---
Pt returned to room. SpO2 and NIBP reapplied. Warm blanket provided. PT resting in position of comfort. Awaiting labs. pt verbalized understanding of remaining NPO at this time.
[2023-01-05 05:50] VITALS: BP 115/68; PULSE 67; RESP 18; O2SAT 98
[2023-01-05 05:52] LABS: Appearance Urine Clear (Clear); Bilirubin Urine Negative (Negative); Blood Urine Negative (Negative); Color Urine Yellow (Yellow); Glucose Urine UA Negative (Negative); Ketones Urine Negative (Negative); Leukocyte Esterase Ur Negative LEU/UL (Negative); Nitrate Urine Negative (Negative); Protein Urine Negative (Negative); Specific Grav Ur >= 1.030 (1.010-1.020)
[2023-01-05 05:56] LABS: Add Urine Microscopic? NO
[2023-01-05 05:56] LABS: Troponin I < 4.0 ng/L (0.00-60.4)
[2023-01-05 06:00] LABS: Pregnancy On Board Control Positive; Urine Pregnancy Test Negative
[2023-01-05] MEDS: MAG HYDROX/ALUMINUM HYD/SIMETH 30 ML, PHENobarb/HYOSCY/ATROPINE/SCOP 32.4 MG, LIDOCAINE... PO (06:06)
[2023-01-05 06:35] LABS: Influenza A QL RT-PCR Negative (Negative); Influenza B QL RT-PCR Negative (Negative); RSV RNA, RT-PCR Negative (Negative); SARS-CoV-2 RNA PCR Negative (Negative)
[2023-01-05 06:44] VITALS: BP 108/69; PULSE 67; RESP 16; O2SAT 99
== END 2023-01-05 06:44 | disposition home or self-care (01) ==
PROVIDERS: Emergency Provider Family Medicine; PCP Internal Medicine
DX: K21.9 Gastro-esophageal reflux disease without esophagitis (principal); J45.909 Unspecified asthma, uncomplicated; F32.A Depression, unspecified; Z87.891 Personal history of nicotine dependence; Z79.51 Long term (current) use of inhaled steroids; Z20.822 Contact with and (suspected) exposure to COVID-19
CPT/HCPCS: 36415; 80053; 81003; 81025; 83605; 83690; 83735; 84484; 85025; 85610; 86140; 87637; 93005; 94640; 96374; 99284; A9270; J2270

== ENCOUNTER 2023-03-09 14:55 | Outpatient (CLI) | payer OTHER, SELFPAY ==
--- NOTE | ~2023-03-09 | XR_ITS ---
EXAM: XR ankle LT min 3V DATE: 03/09/2023 15:08 HISTORY: left lat ankle pain, fall x1 day . COMPARISON: 11/24/2021. FINDINGS: Normal mineralization. No fracture or dislocation. No lytic or blastic lesion. Joint space s are maintained. No erosion or periosteal change. Soft tissues within normal limits. IMPRESSION: No acute osseous finding in the left ankle. Reviewed, dictated and finalized at location K.
== END 2023-03-09 14:56 | disposition home or self-care (01) ==
LOC: CHSIMG 14:57
PROVIDERS: PCP Internal Medicine; Visit Provider Nurse Practitioner Family
DX: M25.572 Pain in left ankle and joints of left foot (principal)
CPT/HCPCS: 73610

== ENCOUNTER 2023-07-12 10:52 | Outpatient (CLI) | payer OTHER, SELFPAY ==
[2023-07-12 11:15] LABS: Basophils Absolute Auto 0.04 K/mm3 (0.00-0.10); Basophils Percent Auto 0.5 % (0.0-1.0); Eosinophils Absolute Auto 0.22 K/mm3 (0.02-0.50); Eosinophils Percent Auto 2.6 % (1.0-6.0); Hematocrit 39.8 % (35.0-49.0); Hemoglobin 12.8 g/dL (12.0-15.0); Immature Granulocyte Absolute 0.03 K/mm3 (0.00-0.00); Immature Granulocyte Percent A 0.4 % (0.0-0.0); Lymphocytes Absolute Auto 2.25 K/mm3 (1.10-4.50); Lymphocytes Percent Auto 26.7 % (18.0-42.0); Mean Corpuscular HGB Conc 32.2 g/dL (32.0-36.0); Mean Corpuscular Hemoglobin 26.7 pg (27.0-31.0); Mean Corpuscular Volume 82.9 fL (78.0-102.0); Mean Platelet Volume 9.3 fl (9.2-11.8); Monocytes Absolute Auto 0.27 K/mm3 (0.10-0.90); Monocytes Percent Auto 3.2 % (2.0-11.0); Neutrophils Absolute Auto 5.6 K/mm3 (1.7-7.2); Neutrophils Percent Auto 66.6 % (50.0-70.0); Platelet Count Result 304 K/mm3 (150-420); Red Cell Distribution Width 14.9 % (11.6-14.4); White Blood Count 8.4 K/mm3 (4.8-10.8)
[2023-07-12 11:38] LABS: Rheumatoid Factor Screen Negative (Negative)
[2023-07-12 12:11] LABS: Alanine Aminotransferase 30 U/L (14-59); Albumin Level 3.5 g/dL (3.4-5.0); Alkaline Phosphatase 69 U/L (46-116); Anion Gap 7 mmol/L (8-16); Aspartate Amino Transferase 15 U/L (15-37); Bilirubin,Total 0.7 mg/dL (0.00-1.00); Blood Urea Nitrogen 13 mg/dL (7-18); CRP 1.7 mg/dL (0.0-0.9); Calcium 8.7 mg/dL (8.5-10.1); Carbon Dioxide 28 mmol/L (21-32); Chloride 104 mmol/L (98-108); Creatine Kinase 253 U/L (26-192); Estimated Glomerular Filt Rate > 60; Free T3 2.66 pg/mL (2.18-3.98); Free T4 Free Thyroxine 0.82 ng/dL (0.76-1.46); Glucose 96 mg/dL (70-99); Osmolality Calculated 288 mOsm/kg (285-295); Potassium 3.9 mmol/L (3.5-5.1); Sodium 139 mmol/L (136-145); Thyroid Stimulating Hormone 1.78 uIU/mL (0.36-3.74); Total Protein 7.4 g/dL (6.4-8.2); Vitamin B12 367 pg/mL (193-986)
[2023-07-12 12:14] LABS: Erythrocyte Sedimentation Rate 28 mm/hr (0-15)
[2023-07-14 11:58] LABS: Anti Cyclic Citrullinated Pept <16 Units (<20)
[2023-07-14 17:10] LABS: Lyme Disease Ab (IgM), Blot Negative (Negative); Lyme Disease Ab(IgG), Blot Negative (Negative)
[2023-07-15 14:07] LABS: Anti Nuclear Antibody Pattern Nuclear, Speckled; Anti Nuclear Antibody Titer 1:40 (Negative)
[2023-07-16 12:52] LABS: Vitamin D 25 Hydroxy 18 ng/mL (30-100)
== END 2023-07-12 10:53 | disposition home or self-care (01) ==
PROVIDERS: PCP Internal Medicine; Visit Provider Internal Medicine
DX: E55.9 Vitamin D deficiency, unspecified (principal); M25.50 Pain in unspecified joint
CPT/HCPCS: 36415; 80053; 82306; 82550; 82607; 84439; 84443; 84481; 85025; 85652; 86038; 86039; 86140; 86200; 86430; 86617

== ENCOUNTER 2023-11-02 17:04 | Outpatient (CLI) | payer OTHER, SELFPAY ==
[2023-11-02 17:34] LABS: Basophils Absolute Auto 0.03 K/mm3 (0.00-0.10); Basophils Percent Auto 0.3 % (0.0-1.0); Eosinophils Absolute Auto 0.21 K/mm3 (0.02-0.50); Eosinophils Percent Auto 1.9 % (1.0-6.0); Hematocrit 39.7 % (35.0-49.0); Hemoglobin 12.7 g/dL (12.0-15.0); Immature Granulocyte Absolute 0.04 K/mm3 (0.00-0.00); Immature Granulocyte Percent A 0.4 % (0.0-0.0); Lymphocytes Absolute Auto 2.93 K/mm3 (1.10-4.50); Lymphocytes Percent Auto 26.9 % (18.0-42.0); Mean Corpuscular Hemoglobin 25.6 pg (27.0-31.0); Mean Corpuscular Volume 79.9 fL (78.0-102.0); Monocytes Absolute Auto 0.52 K/mm3 (0.10-0.90); Monocytes Percent Auto 4.8 % (2.0-11.0); Neutrophils Absolute Auto 7.17 K/mm3 (1.70-7.20); Neutrophils Percent Auto 65.7 % (50.0-70.0); Platelet Count Result 335 K/mm3 (150-420); Red Blood Count 4.97 M/mm3 (4.20-5.40); Red Cell Distribution Width 13.2 % (11.6-14.4); White Blood Count 10.9 K/mm3 (4.8-10.8)
[2023-11-02 17:56] LABS: Alanine Aminotransferase 29 U/L (14-59); Albumin Level 3.5 g/dL (3.4-5.0); Alkaline Phosphatase 79 U/L (46-116); Anion Gap 11 mmol/L (4-12); Aspartate Amino Transferase 14 U/L (15-37); Bilirubin,Total 0.4 mg/dL (0.00-1.00); Blood Urea Nitrogen 16 mg/dL (7-18); Calcium 9.1 mg/dL (8.5-10.1); Carbon Dioxide 26 mmol/L (21-32); Chloride 103 mmol/L (98-108); Creatine Kinase 82 U/L (26-192); Estimated Glomerular Filt Rate > 60; Glucose 87 mg/dL (70-99); Osmolality Calculated 290 mOsm/kg (285-295); Potassium 3.7 mmol/L (3.5-5.1); Sodium 140 mmol/L (136-145); Total Protein 7.1 g/dL (6.4-8.2)
[2023-11-02 18:39] LABS: Erythrocyte Sedimentation Rate 26 mm/hr (0-15)
[2023-11-04 22:12] LABS: Vitamin D 25 Hydroxy 37 ng/mL (30-100)
[2023-11-05 05:47] LABS: Thyroid Peroxidase Antibodies 146 IU/mL (<9)
[2023-11-07 11:40] LABS: Thyroxin Binding Globulin 14.9 mcg/mL (13.5-30.9)
[2023-11-08 03:41] LABS: Aldolase 6.9 U/L (<=8.1)
[2023-11-08 16:55] LABS: Anti Nuclear Antibody Pattern Nuclear, Speckled; Anti Nuclear Antibody Titer 1:40 (Negative)
== END 2023-11-02 17:05 | disposition home or self-care (01) ==
LOC: CHSLAB 17:06
PROVIDERS: PCP Internal Medicine; Visit Provider Internal Medicine
DX: E55.9 Vitamin D deficiency, unspecified (principal); R76.0 Raised antibody titer
CPT/HCPCS: 36415; 80053; 82085; 82088; 82306; 82550; 84442; 85025; 85652; 86038; 86039; 86225; 86376

== ENCOUNTER 2024-04-27 16:09 | Outpatient (CLI) | payer OTHER, SELFPAY ==
--- NOTE | 2024-04-27 16:14 | ECG_ITS ---
Test Date: 2024-04-27 16:31:05 Measurements Intervals [place] Rate: 51 P: 49 VT: 126 QRS: 41 QRSD: 85 T: 39 QT: 517 QTc: 478 Interpretive Statements SINUS BRADYCARDIA WITH SINUS ARRHYTHMIA PROLONGED QT INTERVAL ABNORMAL ECG No previous ECG available for comparison Electronically Signed On 04-27-2024 16:46:20 CDT by Aniceto Carmen D.O.
== END 2024-04-27 16:10 | disposition home or self-care (01) ==
LOC: CHSCARD 16:10
PROVIDERS: PCP Internal Medicine; Visit Provider Internal Medicine
DX: R94.31 Abnormal electrocardiogram [ECG] [EKG] (principal)
CPT/HCPCS: 93005

== ENCOUNTER 2024-05-02 06:39 | Emergency (ER) | payer OTHER, SELFPAY ==
[2024-05-02 06:43] VITALS: BP 143/96; PULSE 81; RESP 18; TEMP 36.5; O2SAT 98
[2024-05-02 06:44] VITALS: BP 143/96; PULSE 81; RESP 18; TEMP 36.5; O2SAT 98
[2024-05-02 06:49] VITALS: BP 142/70
--- NOTE | 2024-05-02 06:53 | ED.LOWEXIN ---
HPI - Extremity Injury (Lower) General Chief Complaint: Extremity Injury, Lower Stated Complaint: lower extremity injury Time Seen by Provider: 05/02/24 06:43 Source: patient Mode of arrival: ambulatory Limitations: no limitations History of Present Illness HPI Narrative: PATIENT DROPPED A DUMBBELL ON THE TOP OF LEFT FOOT YESTERDAY WHILE WORKING OUT. SHE DENIES OTHER INJURIES. Related Data Home Medications Medication Instructions Recorded Confirmed ergocalciferol (vitamin D2) 1,250 1,250 mcg PO DAILY 12/16/22 05/02/24 mcg (50,000 unit) capsule albuterol sulfate 90 mcg/actuation 2 puff inhalation PRN PRN Wheezing 12/30/22 05/02/24 aerosol inhaler etonogestrel 68 mg subdermal 1 implant subdermal ONCE 12/30/22 05/02/24 implant (Nexplanon) montelukast 10 mg tablet 10 mg PO DAILY 05/02/24 05/02/24 paroxetine HCl 10 mg tablet 10 mg PO DAILY 05/02/24 05/02/24 Allergies Allergy/AdvReac Type Severity Reaction Status Date / Time No Known Allergies Allergy Verified 05/02/24 06:42 Review of Systems Review of Systems: All systems reviewed & are unremarkable except as noted in HPI and below PMFSH Past Medical History Medical History Asthma Depression Encounter for surveillance of other contraceptives GERD (gastroesophageal reflux disease) Hiatal hernia Peptic ulcer disease Vaginal discharge Surgical History Surgical History H/O esophagogastroduodenoscopy 12/2019 H/O gynecological procedure 12/30/22 Nexplanon insertion Family History Family History Father Acute myocardial infarction Heart disease Other Adopted Social History Social History Smoking packs per day: 0.5 Smoking cigarettes per day: 10.0 Years smoked: 2 Smoking pack-years: 1.00 Smoking status: Former smoker Tobacco type: cigarettes Smoking end date: 11/08/19 Alcohol intake: never Substance use: never Substance use type: marijuana Other substance usage details: Occasional Lack of Transportation: No Lack of Food: Never True Current Housing: I Have Housing Concerned About Future Housing: No Difficulty Paying Gas/Electric Bills: No Difficulty Paying for Meds: No Currently Unemployed: No Education: High School Diploma/GED Difficulty w/ Childcare or Family Care: No Living arrangements: with family Occupation/Education: occupation Gender identity (if verbalized by the patient): Female Sexual Orientation (if Verbalized by the Patient): Straight or Heterosexual Spiritual care concerns: No Exam Narrative: GENERAL APPEARANCE: WELL-DEVELOPED, WELL-NOURISHED SKIN: NORMAL COLOR VASCULAR: NORMAL PERIPHERAL PULSES, NORMAL CAPILLARY REFILL. MUSCULOSKELETAL: DIFFUSE TENDERNESS LEFT FOOT DORSAL, SWOLLEN NEUROLOGIC: ALERT AND ORIENTED ?3, TRIM CREW SUPERVISOR IS NORMAL TESTED, NO GROSS MOTOR DEFICIT Course Vital Signs Vital signs: Vital Signs Temperature 36.5 C 05/02/24 06:43 Pulse Rate 81 05/02/24 06:43 Respiratory Rate 18 05/02/24 06:43 Blood Pressure 143/96 H 05/02/24 06:43 Pulse Oximetry 98 05/02/24 06:43 Oxygen Delivery Room Air 05/02/24 06:43 Temperature 36.5 C 05/02/24 06:44 Pulse Rate 81 05/02/24 06:44 Respiratory Rate 18 05/02/24 06:44 Blood Pressure 142/70 H 05/02/24 06:49 Pulse Oximetry 98 05/02/24 06:44 Oxygen Delivery Room Air 05/02/24 06:44 MDM - Extremity Injury (Lower) Imaging Data Radiologist's impression: Impressions Foot X-Ray 0
--- NOTE | 2024-05-02 06:54 | PC.NURSE ---
REPORT TO EVELYNE RAMIREZ.
--- NOTE | 2024-05-02 06:56 | PC.NURSE ---
assumed care. report received from narayan hameed
== END 2024-05-02 07:13 | disposition home or self-care (01) ==
PROVIDERS: Emergency Provider Emergency Medicine; PCP Internal Medicine
DX: S90.32XA Contusion of left foot, initial encounter (principal); Z87.891 Personal history of nicotine dependence; W22.8XXA Striking against or struck by other objects, initial encounter; Y93.B3 Activity, free weights
CPT/HCPCS: 73630; 99283

== ENCOUNTER 2024-06-07 07:41 | Emergency (ER) | payer OTHER, SELFPAY ==
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
--- NOTE | ~2024-06-07 | XR_ITS ---
AP view of the pelvis Clinical history: Pain Findings: No acute fracture or dislocation is seen. Osseous alignment is anatomic. Bilateral hip and SI joint spaces are preserved. Soft tissues are unremarkable. Impression: No significant abnormality is seen. Reviewed, dictated and finalized at location M. Impression: No significant abnormality is seen.
--- NOTE | ~2024-06-07 | XR_ITS ---
Portable chest x-ray Comparison: 09/20/2022 Clinical History: Chest pain Findings: Lungs are clear, without focal consolidation or pleural effusion. Cardiomediastinal silho uette is stable. Bones and soft tissues are unremarkable. Impression: Normal chest. Reviewed, dictated and finalized at [facility]. Impression: Normal chest.
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
[2024-06-07 07:47] VITALS: BP 111/83; PULSE 64; RESP 20; TEMP 36.9; O2SAT 100
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
[2024-06-07 08:07] LABS: Pregnancy On Board Control Positive; Urine Pregnancy Test Negative
--- NOTE | 2024-06-07 09:19 | ECG_ITS ---
Test Date: 2024-06-07 09:49:44 Measurements Intervals [place] Rate: 56 P: 25 LA: 150 QRS: 28 QRSD: 94 T: -16 QT: 490 QTc: 476 Interpretive Statements SINUS BRADYCARDIA WITH MARKED SINUS ARRHYTHMIA NONSPECIFIC T-WAVE ABNORMALITY PROLONGED QT INTERVAL INTERPRETATION BASED ON A DEFAULT AGE OF 40 YEARS Compared to ECG 04/27/2024 16:31:05 T-wave abnormality now present Electronically Signed On 06-07-2024 14:21:05 CDT by Maia Vázquez M.D.
[2024-06-07] MEDS: LACTATED RINGERS 500 ML 999 ML IV CONT (09:22)
[2024-06-07] MEDS: ONDANSETRON INJ 4 MG/2 ML VIAL IV PUSH (09:24)
[2024-06-07] MEDS: MORPHINE SULFATE (*CRX) 2 MG/ML INJ IV PUSH (09:24)
[2024-06-07 09:38] LABS: Basophils Absolute Auto 0.03 K/mm3 (0.00-0.10); Basophils Percent Auto 0.3 % (0.0-1.0); Eosinophils Absolute Auto 0.17 K/mm3 (0.02-0.50); Eosinophils Percent Auto 1.8 % (1.0-6.0); Hematocrit 41.3 % (35.0-49.0); Hemoglobin 13.2 g/dL (12.0-15.0); Immature Granulocyte Absolute 0.03 K/mm3 (0.00-0.00); Immature Granulocyte Percent A 0.3 % (0.0-0.0); Lymphocytes Absolute Auto 1.89 K/mm3 (1.10-4.50); Lymphocytes Percent Auto 19.6 % (18.0-42.0); Mean Corpuscular Hemoglobin 25.8 pg (27.0-31.0); Mean Corpuscular Volume 80.7 fL (78.0-102.0); Mean Platelet Volume 8.5 fl (9.2-11.8); Monocytes Absolute Auto 0.38 K/mm3 (0.10-0.90); Neutrophils Absolute Auto 7.12 K/mm3 (1.70-7.20); Platelet Count Result 285 K/mm3 (150-420); Red Blood Count 5.12 M/mm3 (4.20-5.40); Red Cell Distribution Width 14.8 % (11.6-14.4); White Blood Count 9.6 K/mm3 (4.8-10.8)
[2024-06-07 09:58] LABS: Alanine Aminotransferase 17 U/L (14-59); Albumin Level 3.2 g/dL (3.4-5.0); Alkaline Phosphatase 85 U/L (46-116); Anion Gap 9 mmol/L (4-12); Aspartate Amino Transferase 13 U/L (15-37); Bilirubin,Total 0.7 mg/dL (0.00-1.00); Blood Urea Nitrogen 16 mg/dL (7-18); Calcium 8.5 mg/dL (8.5-10.1); Carbon Dioxide 28 mmol/L (21-32); Chloride 104 mmol/L (98-108); Estimated CRCL calculation 168 ml/min; Estimated Glomerular Filt Rate > 60; Glucose 95 mg/dL (70-99); Osmolality Calculated 293 mOsm/kg (285-295); Sodium 141 mmol/L (136-145); Total Protein 6.9 g/dL (6.4-8.2)
[2024-06-07 10:00] LABS: Lipase 13 U/L (16-77); Troponin I < 4.0 ng/L (0.00-60.4)
[2024-06-07 10:51] VITALS: BP 120/83; PULSE 65; RESP 18; TEMP 36.6; O2SAT 100
== END 2024-06-07 11:01 | disposition home or self-care (01) ==
PROVIDERS: Emergency Provider Internal Medicine Critical Care Medicine; PCP Internal Medicine
DX: M54.2 Cervicalgia (principal); Z87.891 Personal history of nicotine dependence; V43.53XA Car driver injured in collision with pick-up truck in traffic accident, initial encounter
CPT/HCPCS: 36415; 70450; 71045; 71260; 72125; 72170; 80053; 81025; 83690; 84484; 85025; 93005; 96361; 96374; 96375; 99284; J2270; J2405; J7120; Q9967

== ENCOUNTER 2024-08-31 14:30 | Outpatient (CLI) | payer OTHER, SELFPAY ==
[2024-08-31 14:44] LABS: Basophils Absolute Auto 0.04 K/mm3 (0.00-0.10); Basophils Percent Auto 0.4 % (0.0-1.0); Eosinophils Absolute Auto 0.26 K/mm3 (0.02-0.50); Eosinophils Percent Auto 2.4 % (1.0-6.0); Hematocrit 40.3 % (35.0-49.0); Hemoglobin 12.8 g/dL (12.0-15.0); Immature Granulocyte Absolute 0.07 K/mm3 (0.00-0.00); Immature Granulocyte Percent A 0.7 % (0.0-0.0); Mean Corpuscular HGB Conc 31.8 g/dL (32-36); Mean Corpuscular Hemoglobin 26.1 pg (27.0-31.0); Mean Corpuscular Volume 82.1 fL (78.0-102.0); Mean Platelet Volume 9.2 fl (9.2-11.8); Monocytes Absolute Auto 0.49 K/mm3 (0.10-0.90); Monocytes Percent Auto 4.6 % (2.0-11.0); Neutrophils Absolute Auto 6.86 K/mm3 (1.70-7.20); Neutrophils Percent Auto 63.9 % (50.0-70.0); Platelet Count Result 335 K/mm3 (150-420); Red Blood Count 4.91 M/mm3 (4.20-5.40); Red Cell Distribution Width 14.4 % (11.6-14.4); White Blood Count 10.7 K/mm3 (4.8-10.8)
[2024-08-31 14:45] LABS: Add Urine Microscopic? NO; Appearance Urine Clear (Clear); Bilirubin Urine Negative (Negative); Blood Urine Trace-intact (Negative); Color Urine Yellow (Yellow); Glucose Urine UA Negative (Negative); Ketones Urine Negative (Negative); Leukocyte Esterase Ur Negative (Negative); Nitrate Urine Negative (Negative); Protein Urine Negative (Negative); Specific Grav Ur 1.025 (1.010-1.020); pH Urine 6.5 (5.0-8.0)
[2024-08-31 16:15] LABS: Alanine Aminotransferase 35 U/L (14-59); Albumin Level 3.9 g/dL (3.4-5.0); Alkaline Phosphatase 84 U/L (46-116); Anion Gap 7 mmol/L (4-12); Aspartate Amino Transferase 15 U/L (15-37); Bilirubin,Total 0.5 mg/dL (0.00-1.00); Blood Urea Nitrogen 13 mg/dL (7-18); Calcium 9.2 mg/dL (8.5-10.1); Carbon Dioxide 30 mmol/L (21-32); Chloride 103 mmol/L (98-108); Cholesterol 199 mg/dL (0-200); Creatine Kinase 168 U/L (26-192); Estimated Glomerular Filt Rate > 60; Ferritin 72 ng/mL (8-252); Free T3 3.19 pg/mL (2.18-3.98); Free T4 Free Thyroxine 0.99 ng/dL (0.76-1.46); Glucose 96 mg/dL (70-99); HDL Direct 68 mg/dL (40-60); Iron 50 ug/dL (50-170); LDL Cholesterol Calculated 110 mg/dL (<130); Osmolality Calculated 290 mOsm/kg (285-295); Potassium 4.2 mmol/L (3.5-5.1); Sodium 140 mmol/L (136-145); Thyroid Stimulating Hormone 1.78 uIU/mL (0.36-3.74); Total Protein 7.2 g/dL (6.4-8.2); Triglycerides 106 mg/dL (0-150); Vitamin B12 578 pg/mL (193-986)
[2024-08-31 17:26] LABS: Hemoglobin A1C 5.5 % (<5.7)
[2024-09-02 02:23] LABS: Vitamin D 25 Hydroxy 55 ng/mL (30-100)
== END 2024-08-31 14:31 | disposition home or self-care (01) ==
LOC: CHSLAB 14:31
PROVIDERS: PCP Internal Medicine; Visit Provider Internal Medicine
DX: R73.01 Impaired fasting glucose (principal)
CPT/HCPCS: 36415; 80053; 80061; 81003; 82306; 82550; 82607; 82728; 83036; 83540; 84439; 84443; 84481; 85025

== ENCOUNTER 2024-11-14 16:51 | Outpatient (CLI) | payer OTHER, SELFPAY ==
[2024-11-14 17:13] LABS: Hematocrit 41.4 % (35.0-49.0); Hemoglobin 12.9 g/dL (12.0-15.0); Mean Corpuscular HGB Conc 31.2 g/dL (32-36); Mean Corpuscular Hemoglobin 25.8 pg (27.0-31.0); Mean Corpuscular Volume 82.8 fL (78.0-102.0); Mean Platelet Volume 9.4 fl (9.2-11.8); Platelet Count Result 303 K/mm3 (150-420); Red Cell Distribution Width 14.2 % (11.6-14.4); White Blood Count 11.5 K/mm3 (4.8-10.8)
--- OUTSIDE RECORDS SUMMARY | 2024-11-14 17:13 | XMS_ITS | Clinical Summary ---
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 Gender Identity Not on file Sexual Orientation Not on file Plan of Treatment Health Maintenance Due Date Last Done Comments Cervical Cancer Screening Pa p Smear (Age 21 to 29) Every 3 Years 1997 Cervical Cancer Screening 1997 Annual Physical 2000 Hepatitis C 2015 DTaP, Tdap and Td Vaccines ( 1 - Tdap) 2016 Hepatitis B Vaccines (1 of 3 - 19+ 3-dose series) 2016 COVID-19 Vaccine (2023-2 5 season) 2024 HPV Vaccines Aged Out No longer eligi ble based on patient's age to complete this topic Meningococcal B Vaccine Aged Out No l onger eligible based on patient's age to complete this topic Meningococcal Vaccine Aged Out No andrzej lisa eligible based on patient's age to complete this topic Pneumococcal Vaccine: Pediat rics (0 to 5 Years) and At-Risk Patients (6 to 64 Years) Aged Out No longer eligible b ased on patient's age to complete this topic RSV Immunizations Under 20 Months Aged Out No longer eligible based on patient's age to complete this topic Insurance [employer] Care Teams Funeral Driver Relationship Specialty Start Date End Date Wyatt Fragoso MD [address] [place] [address] PCP - General INTERNAL MEDICINE 05/12/21
--- OUTSIDE RECORDS SUMMARY | 2024-11-14 17:13 | XMS_ITS | Referral Summary ---
Author Organization [facility] [address] Address [address] [place] [address] Care Team Providers Care Social Work Coordinator Name Role Phone Wyatt Fragoso MD Primary Care Provider [phone] Allergies No known active allergies Medications omeprazole (PriLOSEC) 20 mg capsule Take 20 mg by mouth daily Active albuterol HFA (PROVENTIL HFA,VENTOLIN HFA,PROAIR HFA) 90 mcg/actuation inhaler Inhale 2 puffs every 6 (six) hours as needed for wheezing Active ferrous sulfate 325 mg (65 mg of elemental iron) tablet 06/17/2022 Active Active Problems Problem Noted Date Diagnosed Date Less than 8 weeks gestation of 022 H/O syncope 01/23/2022 Other chest pain 2021 Abnormal EKG 07/18/2021 Vasovagal syncope 07/18/2021 QT prolongation 07/18/2021 Palpitations 07/18/2021 Social History Tobacco Use Types Packs/Day Years Used Date Smoking Tobacco: Former Tobacco Cessation:Counseling Given: Not Answered Personal Safety Answer Date Recorded Getting School Help Needed Not on file 10/23 Comments Unknown Sex and Gender Information Value Date Recorded Sex Assigned at Not on file Legal Sex Female 3:43 PM CDT Gender Identity Female 07/31/2021 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 Sexual Orientation Choose not to disclose 2020 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 Last Filed Vital Signs Vital Sign Reading Time Taken Comments Blood Pressure 102/70 09/28/2022 3:29 PM SUPERVISOR WASH HOUSE Pulse 72 09/28/2022 3:29 PM SUPERVISOR WASH HOUSE Temperature - - Respiratory Rate 18 12/03/2021 3:00 PM CDT Oxygen Saturation 98% 09/28/2022 3:29 PM SUPERVISOR WASH HOUSE Inhaled Oxygen Concentration - - Weight 99.3 kg (219 lb) 09/28/2022 3:29 PM SUPERVISOR WASH HOUSE Height 167.6 cm (5' 6 ) 09/28/2022 3:29 PM SUPERVISOR WASH HOUSE Body Mass Index 35.35 09/28/2022 3:29 PM SUPERVISOR WASH HOUSE Plan of Treatment Not on file Insurance Care Teams Social Work Coordinator Relationship Specialty Start Date End Date Wyatt Fragoso MD [address] [place] [address] PCP - General Internal Medicine 05/05/21
--- OUTSIDE RECORDS SUMMARY | 2024-11-14 17:13 | XMS_ITS | Clinical Summary ---
Author Organization [facility] [address] Address [address] [place] [address] Care Team Providers Care Power Generation Turbine Room Operator Name Role Phone Wyatt Fragoso MD Primary Care Provider [phone] Allergies No known active allergies Medications omeprazole [...] syncope 07/18/2021 QT prolongation 07/18/2021 Palpitations 07/18/2021 Medical History Medical History Date Comments Asthma Anxiety Social History Tobacco Use Types Packs/Day Years Used Date Smoking Tobacco: Former Tobacco Cessation:Counseling Given: Not Answered Personal Safety Answer Date Recorded Getting School Help Needed Not on file 10/23 Comments Unknown Sex and Gender Information Value Date Recorded Sex Assigned at Not on file Legal Sex Female 3:43 PM CDT Gender Identity Female 07/31/2021 11:41 PM LEAD RIDER Sexual Orientation Choose not to disclose 2020 11:41 PM LEAD RIDER Obstetrics History Last Filed Vital Signs Vital Sign Reading Time Taken Comments Blood Pressure 102/70 09/28/2022 3:29 PM LEAD RIDER Pulse 72 09/28/2022 3:29 PM LEAD RIDER Temperature - - Respiratory Rate 18 12/03/2021 3:00 PM CDT Oxygen Saturation 98% 09/28/2022 3:29 PM LEAD RIDER Inhaled Oxygen Concentration - - Weight 99.3 kg (219 lb) 09/28/2022 3:29 PM LEAD RIDER Height 167.6 cm (5' 6 ) 09/28/2022 3:29 PM LEAD RIDER Body Mass Index 35.35 09/28/2022 3:29 PM LEAD RIDER Plan of Treatment Health Maintenance Due Date Last Done Comments Cervical Cancer Screening 1997 Depression Screening 1997 Hepatitis C Screening 1997 Regular Well Visit/Exam 18-64 2015 DTaP/Tdap/Td Vaccine (7 - Td or Tdap) 02/22/2022 02/23/2012, 03/05/2003, 10/03/1999, Additional history exists Covid-19 Vaccine ( season) 2024 11/28/2020, 11/05/2020 Influenza Vaccine (#1) 2024 5, 05/11/2013, 04/27/2012 Hepatitis B Screening Completed 02/26/1998 , 1997, 1997, Additional history exists Varicella Vaccines Completed 03/25/2011, 04/13/2002 HPV Vaccines Completed 06/08/2012, 11/07, 09/25/2010 Pneumococcal vaccine <65 Aged Out No longer eligible based on patient's age to complete this topic [place] [address] [place] [address] Care Teams Power Generation Turbine Room Operator Relationship Specialty Start Date End Date Wyatt Fragoso MD [address] [place], [place] [id number] PCP - General Internal Medicine 05/05/21
[2024-11-14 17:45] LABS: Anion Gap 8 mmol/L (4-12); Blood Urea Nitrogen 17 mg/dL (7-18); CRP 1.3 mg/dL (0.0-0.9); Calcium 9.1 mg/dL (8.5-10.1); Carbon Dioxide 29 mmol/L (21-32); Chloride 104 mmol/L (98-108); Estimated Glomerular Filt Rate > 60; Glucose 106 mg/dL (70-99); Osmolality Calculated 293 mOsm/kg (285-295); Potassium 4.3 mmol/L (3.5-5.1); Sodium 141 mmol/L (136-145)
[2024-11-14 18:11] LABS: Erythrocyte Sedimentation Rate 20 mm/hr (0-15)
== END 2024-11-14 16:52 | disposition home or self-care (01) ==
LOC: CHSLAB 16:53
PROVIDERS: PCP Internal Medicine; Visit Provider Internal Medicine
DX: R22.2 Localized swelling, mass and lump, trunk (principal)
CPT/HCPCS: 36415; 80048; 85027; 85652; 86140

== ENCOUNTER 2024-11-23 07:20 | Outpatient (CLI) | payer OTHER, SELFPAY ==
--- NOTE | ~2024-11-23 | US_ITS ---
Limited Abdominal Sonogram: Real-time sonographic imaging of the right upper quadrant was performed. Clinical History: Right upper quadrant pain Findings: The liver appears normal with no evidence of mass lesion or bile duct dilatation. Main por jeannie vein demonstrates normal direction of flow. The gallbladder is well distended, and appears normal with no evidence of gallstone or wall thickening. The common bile duct measures 3 mm. The visualize d pancreas, aorta, and IVC are unremarkable. Scanning of the area of palpable concern demonstrates no mass lesion or fluid collection. Impression: No significant abnormality seen. In particular, no distinct abnormality seen at the area of clinical concern. Reviewed, dictated and finalized at location . Impression: No significant abnormality seen. In particular, no distinct abnormality seen at the area of clinical concern.
--- OUTSIDE RECORDS SUMMARY | 2024-11-23 07:23 | XMS_ITS | Referral Summary ---
Author Organization [facility] [address] Address [address] [place] [address] Care Team Providers Care Cruise Director Name Role Phone Wyatt Fragoso MD Primary Care Provider [phone] Allergies No known active allergies Medications omeprazole [...] CDT Gender Identity Female 07/31/2021 11:41 PM FIRE MEDIC Sexual Orientation Choose not to disclose 2020 11:41 PM FIRE MEDIC Last Filed Vital Signs Vital Sign Reading Time Taken Comments Blood Pressure 102/70 09/28/2022 3:29 PM FIRE MEDIC Pulse 72 09/28/2022 3:29 PM FIRE MEDIC Temperature - - Respiratory Rate 18 12/03/2021 3:00 PM CDT Oxygen Saturation 98% 09/28/2022 3:29 PM FIRE [employer]IC Inhaled Oxygen Concentration - - Weight 99.3 kg (219 lb) 09/28/2022 3:29 PM FIRE MEDIC Height 167.6 cm (5' 6 ) 09/28/2022 3:29 PM FIRE MEDIC Body Mass Index 35.35 09/28/2022 3:29 PM FIRE MEDIC Plan of Treatment Not on file Insurance Care Teams Cruise Director Relationship Specialty Start Date End Date Wyatt Fragoso MD [address] [place] [address] PCP - General Internal Medicine 05/05/21
--- OUTSIDE RECORDS SUMMARY | 2024-11-23 07:23 | XMS_ITS | Clinical Summary ---
Author Organization [facility] [address] Address [address] [place] [address] Care Team Providers Care Director Selection And Administration Name Role Phone Wyatt Fragoso MD Primary Care Provider [phone] Allergies No known active allergies Medications omeprazole [...] CDT Gender Identity Female 07/31/2021 11:41 PM ROOFING CONTRACTOR Sexual Orientation Choose not to disclose 2020 11:41 PM ROOFING CONTRACTOR Obstetrics History Last Filed Vital Signs Vital Sign Reading Time Taken Comments Blood Pressure 102/70 09/28/2022 3:29 PM ROOFING CONTRACTOR Pulse 72 09/28/2022 3:29 PM ROOFING CONTRACTOR Temperature - - Respiratory Rate 18 12/03/2021 3:00 PM CDT Oxygen Saturation 98% 09/28/2022 3:29 PM ROOFING CONTRACTOR Inhaled Oxygen Concentration - - Weight 99.3 kg (219 lb) 09/28/2022 3:29 PM ROOFING CONTRACTOR Height 167.6 cm (5' 6 ) 09/28/2022 3:29 PM ROOFING CONTRACTOR Body Mass Index 35.35 09/28/2022 3:29 PM ROOFING CONTRACTOR Plan of Treatment Health Maintenance Due Date [...] patient's age to complete this topic [place] [place] [address] Care Teams Director Selection And Administration Relationship Specialty Start Date End Date Wyatt Fragoso MD [address] [place], [place] [id number] PCP - General Internal Medicine 05/05/21
--- OUTSIDE RECORDS SUMMARY | 2024-11-23 07:23 | XMS_ITS | Clinical Summary ---
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
== END 2024-11-23 07:21 | disposition home or self-care (01) ==
LOC: CHSIMG 07:21
PROVIDERS: PCP Internal Medicine; Visit Provider Internal Medicine
DX: R10.11 Right upper quadrant pain (principal); R19.01 Right upper quadrant abdominal swelling, mass and lump
CPT/HCPCS: 76705